=== PATIENT | male | born 1940 | race Caucasian/White ===

== ENCOUNTER 2017-07-21 10:57 | Inpatient (IN) ==
[2017-07-21] MEDS ORDERED: 0.9 % Sodium Chloride 1,000 ML IVC ONE (11:38)
[2017-07-21] MEDS ORDERED: Ondansetron 4 MG/2 ML VIAL IVP ONE (11:38)
[2017-07-21] MEDS ORDERED: Ibuprofen 600 MG TABLET PO ONE (11:39)
[2017-07-21] MEDS ORDERED: 0.9 % Sodium Chloride 500 ML IVC ONE (11:43)
--- NOTE | 2017-07-21 11:55 | Emergency Department Note ---
Disposition Clinical Impression: Influenza, Atrial fibrillation with RVR, Hyponatremia, Dehydration Hypotension Qualifiers: Hypotension type: unspecified hypotension type Qualified Code(s): I95.9 - Hypotension, unspecified Disposition: Still a Patient Condition: Fair Referrals: Brenda Bearden MD [Primary Care Provider] - Forms: ED Satisfaction Letter Time of Disposition: 14:02 General Adult HPI - General Chief complaint: ED Upper Respiratory Infection Stated complaint: flu like symptoms Time Seen by Provider: 07/21/17 11:16 Source: patient Limitations: no limitations Nursing Notes Reviewed: Yes Vital Signs Reviewed: Yes - History of Present Illness HPI Narrative: Mr Whitmore is a 76 yo male presents 3 day hx of worsening general malaise. Patient has been visiting his who lives [facility] and currently hospitalized for the flu. Patient has associated myalgia, cough, nausea and chills. Patient declines fever, shortness of breath, chest pain, vomiting. Onset (ago): day(s) (3) Radiation: non-radiation Pain Severity: mild Pain Scale: 0 Quality: aching Consistency: constant, Worsening Improves with: nothing Worsens with: nothing Associated symptoms: Reports: cough, diaphoresis, fever/chills, loss of appetite , malaise, nausea/vomiting, weakness. Denies: confusion, chest pain, headaches , rash, seizure, shortness of breath, syncope Treatments Prior to Arrival: none - Related Data Home Medications Medication Instructions Recorded Confirmed Aspirin Enteric Coated [Aspirin EC] 81 mg PO DAILY 07/21/17 07/21/17 Latanoprost [Xalatan] 1 drop OP HS 07/21/17 07/21/17 Lisinopril [Zestril] 40 mg PO DAILY 07/21/17 07/21/17 Metoprolol [Lopressor] 50 mg PO BID 07/21/17 07/21/17 Triamterene/HCTZ 37.5/25mg 1 each PO DAILY 07/21/17 07/21/17 [Dyazide] Allergies Allergy/AdvReac Type Severity Reaction Status Date / Time No Known Allergies Allergy Verified 07/21/17 11:11 All systems ED: reviewed and negative except as stated. Review of Systems: As Per HPI Constitutional: Reports: chills, weakness. Denies: fever Cardiovascular: Denies: chest pain, palpitations, dyspnea on exertion, orthopnea , paroxysmal nocturnal dyspnea Respiratory: Reports: cough. Denies: dyspnea, wheezes Gastrointestinal: Reports: nausea. Denies: abdominal pain, vomiting, diarrhea, constipation Past Medical History - Past Medical History Medical history: Reports: hypertension Psychiatric history: Reports: no psych history - Social History Smoking Status: Former smoker Smokeless Tobacco Status: No Alcohol use: Reports: none Drug use: Reports: none Physical Exam - General Limitations: no limitations General appearance: alert - Head Head exam: atraumatic, normocephalic - Eye Eye exam: Absent: conjunctival injection - ENT ENT exam: mucous membranes dry - Neck Neck exam: Present: lymphadenopathy (non-tender anterior cervical lymphadenopathy bilaterally) - Chest Chest inspection: Present: normal inspection, symmetric chest wall rise. Absent : tenderness - Respiratory Respiratory exam: Present: normal lung sounds bilaterally - Cardiovascular Cardiovascular exam: Present: normal rhythm, tachycardia, normal heart sounds. Absent: systolic murmur, diastolic murmur - Abdominal Exam Abdominal exam: Present: soft, Non-Tender, normal bowel sounds. Absent: tenderness, distention, guarding, rebound, rigidity - Extremities Exam Extremities exam: Present: normal inspection, full ROM, normal capillary refill. Absent: tenderness, pedal edema Course Course Narrative: patient is tachy and hypotensive, and clinically appears mild dehydrated. Will resuscitate with IVF. EKG ordered, and shows patient is in Afib. Will attempt to rehydrate prior to attempting pharmaceutical rate control. Trops, CBC, BMP pending. - Reevaluation(s) Reevaluation #1: Influenza A returned back negative. Will admit at this time for new onset Afib. Started cardizem 5. Time: 14:01 Vital Signs Temperature 98.2 F 07/21/17 11:11 Pulse Rate 106 07/21/17 11:11 Respiratory Rate 20 07/21/17 11:11 Blood Pressure 159/102 07/21/17 11:11 O2 Sat by Pulse Oximetry 99 07/21/17 11:11 Temperature 98.2 F 07/21/17 11:11 Pulse Rate 119 07/21/17 12:15 Respiratory Rate 16 07/21/17 12:15 Blood Pressure 121/81 07/21/17 12:15 O2 Sat by Pulse Oximetry 95 07/21/17 12:15 Oxygen Delivery Oxygen Delivery Room Air Medical Decision Making - [facility] Narrative Medical decision making narrative: new onset Afib in the setting of influenza A infection. - Medical Records Medical records reviewed: Yes I reviewed the patient's medical records. - Lab Data Lab results reviewed: Yes I reviewed the patient's lab results. Result diagrams: 07/21/17 11:55 07/21/17 11:55 Lab Results 07/21/17 07/21/17 07/21/17 Range/Units 11:55 11:55 11:55 WBC 3.3 L (4.3-11.1) K/mcL RBC 4.88 (4.19-5.50) M/mcL Hgb 16.4 (12.9-16.9) g/dL Hct 45.2 (37.5-50.1) % MCV 92.6 (83.0-100.0) fL MCH 33.6 H (28.0-33.3) pg MCHC 36.3 H (31.6-35.5) g/dL RDW 12.7 (11.5-14.5) % Plt Count 172 (140-400) K/mcL MPV 9.1 L (9.4-12.4) fL Seg Neutrophils % 54.0 % Band Neutrophils % 7.0 H (0-4) % Lymphocytes % 20.0 % Monocytes % 18.0 % Eosinophils % 1.0 % Neutrophils # 2.0 (1.6-8.9) K/mcL Lymphocytes # 0.7 (0.6-4.6) K/mcL Monocytes # 0.6 (0.0-1.3) K/mcL Eosinophils # 0.0 (0.0-0.6) K/mcL Platelet Estimate Normal (Normal) Sodium 125 L (136-145) mEq/L Potassium 3.6 (3.5-5.1) mEq/L Chloride 88 L (98-107) mEq/L Carbon Dioxide 25 (23-29) mEq/L BUN 20 (8-23) mg/dL Creatinine 1.17 (0.70-1.30) mg/dL Est GFR ( Amer) > 60 (> 60) Est GFR (Non-Af Amer) > 60 (> 60) BUN/Creatinine Ratio 17 (6-26) Glucose 104 (70-105) mg/dL Calculated Osmolality 263 L (280-300) Calcium 9.6 (8.6-10.3) mg/dL Total Bilirubin 0.9 (0.3-1.0) mg/dL AST 40 H (13-39) Units/L ALT 21 (7-52) Units/L Alkaline Phosphatase 50 (34-104) Units/L Troponin I < 0.03 (< 0.04) ng/mL Serum Total Protein 7.6 (6.4-8.9) g/dL Albumin 4.3 (3.5-5.7) g/dL Globulin 3.3 (2.4-3.5) g/dL Albumin/Globulin Ratio 1.3 (1.1-2.2) - Radiology Data Radiology results reviewed: Yes I reviewed the patient's radiology results. Chest X-Ray 07/21/17 11:39 IMPRESSION: No acute process. D/ / Alejandro Matamoros MD / Alejandro Matamoros MD Interpreting Provider: Alejandro Matamoros MD - EKG Data EKG #1 EKG attestation: Yes I reviewed and interpreted this EKG. Rate: tachycardia Rhythm: A.Fib [place]/QRS: normal Interpretation: other (new onset of afib) Attestation Statement - Attestation Attestation: Patient was seen with resident physician. I reviewed the history, physical, assessment and plan, and agree with the findings. I also personally evaluated this patient and had [id number] time with this patient. 76-year-old male presents to the emergency Department chief complaint of 3 days of increasing malaise. Son says he has not been eating and drinking as much as usual. Patient himself denies chest pain shortness of breath fevers chills or other such complaints. He says he just does not have much energy with been getting progressively worse. Of note he lives by himself as his is currently hospitalized. On examination vital signs tachycardic with some mild hypotension on a repeat blood pressure. ENT is unremarkable. Heart tachycardic irregularly irregular rhythm. Lungs were clear. Abdomen is soft and nontender. Extremities are unremarkable including no swelling. Neurologically alert and oriented. Psychiatric exam. She has a flat affect but otherwise unremarkable. Skin exam shows no bruises or abrasions. ED course EKG revealed new onset atrial fibrillation. We will initially temperature control rate with fluids. We will also check labs including troponin influenza and chest x-ray. Because of the new onset nature of atrial fibrillation we will likely admit the patient to the hospital service. He remained stable on the ED. Patient was stable on the emergency department. We did eventually give him a little something for rate control once we get his blood pressure back up with fluids, hospital service was notified agree to accept the patient for admission. Agree with resident physician assessment plan.
[2017-07-21 12:11] LABS: Hematocrit 45.2 % (37.5-50.1); Hemoglobin 16.4 g/dL (12.9-16.9); Mean Corpuscular HGB Conc 36.3 g/dL (31.6-35.5); Mean Corpuscular Hemoglobin 33.6 pg (28.0-33.3); Mean Corpuscular Volume 92.6 fL (83.0-100.0); Mean Platelet Volume 9.1 fL (9.4-12.4); Platelet Count 172 K/mcL (140-400); Red Blood Count 4.88 M/mcL (4.19-5.50); Red Cell Distribution Width 12.7 % (11.5-14.5)
[2017-07-21 12:27] LABS: Alanine Aminotransferase 21 Units/L (7-52); Albumin 4.3 g/dL (3.5-5.7); Albumin/Globulin Ratio 1.3 (1.1-2.2); Alkaline Phosphatase 50 Units/L (34-104); Aspartate Amino Transferase 40 Units/L (13-39); BUN/Creatinine Ratio 17 (6-26); Bilirubin,Total 0.9 mg/dL (0.3-1.0); Blood Urea Nitrogen 20 mg/dL (8-23); Calcium 9.6 mg/dL (8.6-10.3); Carbon Dioxide 25 mEq/L (23-29); Chloride 88 mEq/L (98-107); Globulin 3.3 g/dL (2.4-3.5); Glucose 104 mg/dL (70-105); Osmolality,Calculated 263 (280-300); Potassium 3.6 mEq/L (3.5-5.1); Sodium 125 mEq/L (136-145); Total Protein 7.6 g/dL (6.4-8.9); eGFR For Non-African Americans > 60 (> 60)
[2017-07-21 12:38] LABS: Lymphocytes # 0.7 K/mcL (0.6-4.6); Monocytes # 0.6 K/mcL (0.0-1.3); Platelet Estimate Normal (Normal)
--- NOTE | 2017-07-21 13:38 | Internal Med History&Physical ---
Date of Encounter: 07/21/17 Time of Encounter: 13:36 Assessment and Plan (1) Influenza A Current visit: Yes Status: Acute We will start patient on Tamiflu. Will need 5 days of it. Continue supportive care. (2) Atrial fibrillation with RVR Current visit: Yes Status: Acute Give Cardizem 5 mg IV now. Check TSH. Check magnesium. Check an echocardiogram. This is new onset and may be exacerbated by the flu. Hold off on anticoagulation for now. (3) Hypertension Current visit: Yes Status: Acute Hold antihypertensives for now. Blood pressure is okay with systolic is in 120s currently. On initial presentation was actually elevated at 159/102. Qualifiers: Hypertension type: essential hypertension Qualified Code(s): I10 - Essential (primary) hypertension (4) Hyponatremia Current visit: Yes Status: Acute We will start gentle hydration. Check labs in the morning. He is already received 2 L normal saline boluses. (5) DVT prophylaxis Current visit: Yes Status: Acute Heparin subcutaneous Internal Medicine - H&P: HPI Chief complaint: shortness of breath Admitted From: Emergency Dept Plans for Post Hospital Care: Home History of present illness: Mr. Whitmore is a 76 year old male with history of HTN presents with myalgias. He has been having these symptoms for 3 days. Visits his in a [facility] who also has the flu. He has an associated cough, nausea and chills. Denies headaches, fever, chest pain, abdominal pain, urinary symptoms, diarrhea, constipation, neurological symptoms. In the emergency department he was found to be in atrial fibrillation with rapid ventricular response. With a rate in the 120s to 130s. He was otherwise hemodynamically stable. He is given 2 L of normal saline. He tested positive for the flu. Chest x-ray was unremarkable. Laboratory workup shows mild leukopenia with a WBC count of 3.3. There is no previous labs to compare that to. Sodium was 125. Normal kidney function. Past Med Surg Social Fam HX - Past Medical History Medical history: hypertension Psychiatric history: no psych history - Social History Smoking Status: Former smoker Smokeless Tobacco Status: No Alcohol use: none Drug use: none Internal Medicine - H&P: Meds Aspirin Enteric Coated [Aspirin EC] 81 mg PO DAILY 07/21/17 [History] Latanoprost [Xalatan] 1 drop OP HS 07/21/17 [History] Lisinopril [Zestril] 40 mg PO DAILY 07/21/17 [History] Metoprolol [Lopressor] 50 mg PO BID 07/21/17 [History] Triamterene/HCTZ 37.5/25mg [Dyazide] 1 each PO DAILY 07/21/17 [History] 3 Allergy/AdvReac Type Severity Reaction Status Date / Time No Known Allergies Allergy Verified 07/21/17 11:11 All Systems PM: A 10-system review of systems was performed and is negative for pertinent findings except as documented above in the HPI. Review of systems: All systems reviewed are negative except for as mentioned above - Constitutional Vitals: Temp Pulse Resp BP Pulse Ox 98.2 F 119 16 121/81 95 07/21/17 11:11 07/21/17 12:15 07/21/17 12:15 07/21/17 12:15 07/21/17 12:15 Exam: GEN: NAD HEENT: AT, NC, No cyanosis, oral mucosa is moist, No JVD Lymphatics: No lymphadenoapthy Eyes: Extrocular muscles intact, anicteric CVS:RRR. S1, S2, No m/r/g RESP: CTAB ABD: Soft, NT, ND, +BS EXT: No edema, No rashes, 2+ DP NEURO: Nonfocal, CN II-XII intact, No focal motor or sensory deficits Psych: Cooperative, Not anxious or depressed Internal Med - H&P Results - Labs CBC & Chem 7: 07/21/17 11:55 07/21/17 11:55 Labs: Short CBC 07/21/17 Range/Units 11:55 WBC 3.3 L (4.3-11.1) K/mcL Hgb 16.4 (12.9-16.9) g/dL Hct 45.2 (37.5-50.1) % Plt Count 172 (140-400) K/mcL Neutrophils # 2.0 (1.6-8.9) K/mcL BMP 07/21/17 11:55 Sodium 125 L Potassium 3.6 Chloride 88 L Carbon Dioxide 25 BUN 20 Creatinine 1.17 Glucose 104 Calcium 9.6 Cardiac Enzymes 07/21/17 Range/Units 11:55 Troponin I < 0.03 (< 0.04) ng/mL Liver Function 07/21/17 Range/Units 11:55 Total Bilirubin 0.9 (0.3-1.0) mg/dL AST 40 H (13-39) Units/L ALT 21 (7-52) Units/L Alkaline Phosphatase 50 (34-104) Units/L Albumin 4.3 (3.5-5.7) g/dL - Impressions ITS Impressions Chest X-Ray 07/21/17 11:39 IMPRESSION: No acute process. D/ / Alejandro Matamoros MD / Alejandro Matamoros MD Interpreting Provider: Alejandro Matamoros MD
[2017-07-21] MEDS ORDERED: Naloxone 0.4 MG/ML INJ IVP PRN (13:46)
[2017-07-21] MEDS ORDERED: Acetaminophen 325 MG TABLET PO PRN (13:46)
[2017-07-21 14:21] LABS: INR 1.2; Prothrombin Time 12.8 Seconds (9.4-12.1)
[2017-07-21 14:37] LABS: Magnesium 1.5 mg/dL (1.6-2.6)
[2017-07-21 14:50] LABS: Thyroid Stimulating Hormone 1.167 mcIU/mL (0.340-5.600)
[2017-07-21] MEDS: 0.9 % Sodium Chloride 1,000 ML IVC SCH (14:52)
[2017-07-21] MEDS: Oseltamivir Phosphate 30 MG CAPSULE PO SCH ×2 (14:54→20:28)
[2017-07-21] MEDS: *HR* Heparin 5,000 UNIT/ML VIAL SQ SCH ×2 (18:03→20:29)
[2017-07-21] MEDS: Latanoprost 2.5 ML BOTTLE BOTH EYES SCH (20:52)
[2017-07-21] MEDS ORDERED: Magnesium Oxide 400 MG TABLET PO ONE (22:51)
[2017-07-22] MEDS: 0.9 % Sodium Chloride 1,000 ML IVC SCH ×2 (05:15→22:03)
[2017-07-22] MEDS: *HR* Heparin 5,000 UNIT/ML VIAL SQ SCH ×3 (05:19→22:03)
[2017-07-22 07:46] LABS: BUN/Creatinine Ratio 17 (6-26); Blood Urea Nitrogen 16 mg/dL (8-23); Calcium 8.4 mg/dL (8.6-10.3); Carbon Dioxide 20 mEq/L (23-29); Chloride 91 mEq/L (98-107); Glucose 87 mg/dL (70-105); Magnesium 1.3 mg/dL (1.6-2.6); Osmolality,Calculated 257 (280-300); Potassium 3.7 mEq/L (3.5-5.1); Sodium 123 mEq/L (136-145); eGFR For Non-African Americans > 60 (> 60)
[2017-07-22 07:58] LABS: Basophils % 0.2 %; Eosinophils % 0.2 %; Hematocrit 39.7 % (37.5-50.1); Immature Granulocytes % 0.5 % (0-4); Lymphocytes # 0.3 K/mcL (0.6-4.6); Lymphocytes % 5.2 %; Mean Corpuscular Hemoglobin 32.9 pg (28.0-33.3); Mean Corpuscular Volume 91.3 fL (83.0-100.0); Mean Platelet Volume 9.4 fL (9.4-12.4); Monocytes # 0.3 K/mcL (0.0-1.3); Monocytes % 5.2 %; Neutrophils # 5.6 K/mcL (1.6-8.9); Nucleated Red Blood Cells 0.6 /100 WBC (0); Platelet Count 156 K/mcL (140-400); Red Blood Count 4.35 M/mcL (4.19-5.50); Red Cell Distribution Width 12.5 % (11.5-14.5); Segmented Neutrophils % 88.7 %
[2017-07-22 08:03] LABS: Hemoglobin 14.3 g/dL (12.9-16.9)
[2017-07-22] MEDS: Oseltamivir Phosphate 30 MG CAPSULE PO SCH ×2 (10:34→22:02)
[2017-07-22] MEDS: Aspirin Enteric Coated 81 MG Tablet PO SCH (10:34)
[2017-07-22] MEDS: Lisinopril 20 MG TABLET PO SCH (10:34)
--- NOTE | 2017-07-22 12:31 | Internal Med Progress Note ---
Date of Encounter: 07/22/17 Time of Encounter: 11:30 - Assessment and plan (1) Atrial fibrillation with RVR Current Visit: Yes Status: Acute Assessment and plan: Newly diagnosed Tele review shows more sinus tach with PACS Repeat EKG TSH WNL Consult cardiology Now in sinus rhythm and HR controlled, patient is on metoprolol at home, continue same CHADS score of 2 for HTN and age Will defer anticoagulation to cardiology eval ECHO has been done and is pending report (2) Hypertension Current Visit: Yes Status: Acute Assessment and plan: controlled on current meds-HCTZ/Metoprolol/Lisinopril, continue same Qualifiers: Hypertension type: essential hypertension Qualified Code(s): I10 - Essential (primary) hypertension (3) Hyponatremia Current Visit: Yes Status: Acute Assessment and plan: Persistent, possibly due to dehydration COntinue home meds (4) Influenza A Current Visit: Yes Status: Acute Assessment and plan: continue tamiflu (5) DVT prophylaxis Current Visit: Yes Status: Acute Assessment and plan: Heparin SQ (6) Hypomagnesemia Current Visit: Yes Status: Acute Assessment and plan: replaced, continue to monitor - Subjective Interval history: Seen and evaluated at bedside with son NO new complains Cough and breathing improved - Constitutional Vitals: Temp Pulse Resp BP Pulse Ox 98.6 F 93 14 139/85 94 07/22/17 11:16 07/22/17 11:16 07/22/17 11:16 07/22/17 11:16 07/22/17 11:16 General appearance: Present: A&O X 3, pleasant, no acute distress - Head Head exam: Present: atraumatic, normocephalic - Eye Eye exam: Present: PERRL, conjuntiva pink, sclera anicteric Pupils: Present: PERRL - Neck Neck exam general surgery: Present: supple, trachea midline. Absent: lymphadenopathy - Respiratory Respiratory exam: Present: CTAB. Absent: accessory muscle use, rales, rhonchi, wheezes - Cardiovascular Cardiovascular exam: Present: RRR, +S1, +S2. Absent: diastolic murmur, gallop, rubs, systolic murmur - GI/Abdominal GI/Abdominal exam: Present: normal bowel sounds, soft, no peritoneal signs. Absent: distended, tenderness - Extremities Exam Extremities exam: Present: warm, radial pulses palpable and symmetrical. Absent : calf tenderness, cyanotic, pedal edema - Neurological Exam Neurological exam: Present: alert, CN II-XII intact, oriented X3, no focal deficits. Absent: pronater drift, facial droop, speech deficit - Skin Skin exam: Present: dry, intact Internal Medicine: Result - Labs CBC & Chem 7: 07/22/17 06:48 07/22/17 06:48 Labs: Short CBC 07/22/17 Range/Units 06:48 WBC 6.3 D (4.3-11.1) K/mcL Hgb 14.3 D (12.9-16.9) g/dL Hct 39.7 (37.5-50.1) % Plt Count 156 (140-400) K/mcL Neutrophils # 5.6 (1.6-8.9) K/mcL BMP 07/22/17 06:48 Sodium 123 L Potassium 3.7 Chloride 91 L Carbon Dioxide 20 L BUN 16 Creatinine 0.96 Glucose 87 Calcium 8.4 L - ABG Interpretation ABG results: PT/INR, D-dimer PT 12.8 Seconds (9.4-12.1) H 07/21/17 14:04 Consult Discharge Plan - Plan Referrals: Brenda Bearden MD [Primary Care Provider] -
[2017-07-22] MEDS: Latanoprost 2.5 ML BOTTLE BOTH EYES SCH (22:03)
[2017-07-23] MEDS: *HR* Heparin 5,000 UNIT/ML VIAL SQ SCH ×3 (06:02→23:47)
[2017-07-23 08:44] LABS: Calcium 8.6 mg/dL (8.6-10.3); Carbon Dioxide 27 mEq/L (23-29); Chloride 90 mEq/L (98-107); Magnesium 1.7 mg/dL (1.6-2.6); Potassium 3.7 mEq/L (3.5-5.1); Sodium 123 mEq/L (136-145)
[2017-07-23 08:50] LABS: BUN/Creatinine Ratio 13 (6-26); Blood Urea Nitrogen 12 mg/dL (8-23); Glucose 100 mg/dL (70-105); Osmolality,Calculated 256 (280-300); eGFR For Non-African Americans > 60 (> 60)
[2017-07-23] MEDS: 0.9 % Sodium Chloride 1,000 ML IVC SCH (11:35)
[2017-07-23] MEDS: Aspirin Enteric Coated 81 MG Tablet PO SCH (11:36)
[2017-07-23] MEDS: Lisinopril 20 MG TABLET PO SCH (11:36)
[2017-07-23] MEDS: Magnesium Oxide 400 MG TABLET PO SCH ×2 (11:43→20:14)
--- NOTE | 2017-07-23 11:44 | Internal Med Progress Note ---
Date of Encounter: 07/23/17 Time of Encounter: 15:21 - Assessment and plan (1) Atrial fibrillation with RVR Current Visit: Yes Status: Acute Assessment and plan: Newly diagnosed Resolved back to sinus Tele review shows more sinus tach with PACS TSH WNL Consulted cardiology, review noted Now in sinus rhythm and HR controlled, patient is on metoprolol at home, continue same CHADS score of 2 for HTN and age Started on Warfarin by cardiology, monitor INR ECHO has been done -showed preserved EF, no WMA (2) Hypertension Current Visit: Yes Status: Chronic Assessment and plan: controlled on current meds-HCTZ/Metoprolol/Lisinopril, continue same Qualifiers: Hypertension type: essential hypertension Qualified Code(s): I10 - Essential (primary) hypertension (3) Hyponatremia Current Visit: Yes Status: Acute Assessment and plan: Persistent, possibly due to dehydration Baseline unknown Na this morning 123 Continue current management (4) Influenza A Current Visit: Yes Status: Acute Assessment and plan: continue tamiflu (5) DVT prophylaxis Current Visit: Yes Status: Acute Assessment and plan: Heparin SQ (6) Hypomagnesemia Current Visit: Yes Status: Acute Assessment and plan: replaced, Mag 1.7 this a.m, continue to monitor - Subjective Interval history: Seen and evaluated at bedside with son NO new complains Cough and breathing improved Awaiting cardio eval - Constitutional Vitals: Temp Pulse Resp BP Pulse Ox 97.8 F 96 15 123/86 93 07/23/17 11:31 07/23/17 11:31 07/23/17 11:31 07/23/17 11:31 07/23/17 11:31 General appearance: Present: A&O X 3, pleasant, no acute distress - Head Head exam: Present: atraumatic, normocephalic - Eye Eye exam: Present: PERRL, conjuntiva pink, sclera anicteric Pupils: Present: PERRL - Neck Neck exam general surgery: Present: supple, trachea midline. Absent: lymphadenopathy - Respiratory Respiratory exam: Present: CTAB. Absent: accessory muscle use, rales, rhonchi, wheezes - Cardiovascular Cardiovascular exam: Present: RRR, +S1, +S2. Absent: diastolic murmur, gallop, rubs, systolic murmur - GI/Abdominal GI/Abdominal exam: Present: normal bowel sounds, soft, no peritoneal signs. Absent: distended, tenderness - Extremities Exam Extremities exam: Present: warm, radial pulses palpable and symmetrical. Absent : calf tenderness, cyanotic, pedal edema - Neurological Exam Neurological exam: Present: alert, CN II-XII intact, oriented X3, no focal deficits. Absent: pronater drift, facial droop, speech deficit - Skin Skin exam: Present: dry, intact Internal Medicine: Result - Labs CBC & Chem 7: 07/22/17 06:48 07/23/17 08:20 Labs: BMP 07/23/17 08:20 Sodium 123 L Potassium 3.7 Chloride 90 L Carbon Dioxide 27 BUN 12 Creatinine 0.90 Glucose 100 Calcium 8.6 - ABG Interpretation ABG results: PT/INR, D-dimer PT 12.8 Seconds (9.4-12.1) H 07/21/17 14:04 - Impressions Impressions Echocardiogram 07/22/17 13:45 Impressions: LVEF 65%. Mild left ventricular diastolic dysfunction. Dilated RV with normal function. Mild aortic regurgitation. No pulmonary hypertension. Left Ventricular Wall Motion: Rest Echo Findings All wall segments showed normal motion. Findings: Study Quality * Technically adequate exam. ECG Findings * Sinus tachycardia. Left Ventricle * LVEF 65%. * Mild left ventricular diastolic dysfunction. * Normal LV chamber size, wall thickness and function. Right Ventricle * Dilated RV with normal function. Left Atrium * LA size not well evaluated. Right Atrium * Right atrium is not well visualized. Aortic Valve * Trileaflet aortic valve. * No aortic stenosis. * Mild aortic regurgitation. Mitral Valve * No mitral stenosis. * Trace mitral regurgitation. * Normal mitral valve structure. Tricuspid Valve * Tricuspid valve not well visualized. * Trace tricuspid regurgitation. Pulmonic Valve * Pulmonic valve is not well visualized. * No pulmonic stenosis. * No pulmonic regurgitation. Pulmonary Artery * Pulmonary artery not well visualized. Aorta * Normally sized aortic root. Pericardium * There is no pericardial effusion present. Interatrial Septum * Interatrial septum not well evaluated. IVC * The IVC is not well evaluated. Consult Discharge Plan - Plan Referrals: Brenda Bearden MD [Primary Care Provider] -
--- NOTE | 2017-07-23 12:05 | Cardiology Consult Note ---
<Brandi Kinsey Earlene - Last Filed: 07/23/17 12:06> Date of Encounter: 07/23/17 Time of Encounter: 11:30 Assessment and Plan (1) Atrial fibrillation with RVR Current Visit: Yes Status: Acute Atrial fibrillation with RVR in the setting of influenza A. Chronicity unclear, patient asymptomatic. Now SR with frequent PACs. Continue betablockade. TSH normal. Electrolytes stable, mag low normal--will give po replacement. TTE 07/22/17: LVEF 65%, dilated RV with normal function, normal wall motion, mild AR. CHA2Ds Vasc= 3 (age, HTN). Recommend full AC, discussed NOACs vs. coumadin, if affordable patient and family would prefer to proceed with NOAC. Will ellis check Xarelto 20 mg daily. Will discuss and review with Dr. Reid. (2) Influenza A Current Visit: Yes Status: Acute On Tamiflu. Mgmt per primary service. (3) Hypertension Current Visit: Yes Status: Acute Controlled, continue current CV medications. Qualifiers: Hypertension type: essential hypertension Qualified Code(s): I10 - Essential (primary) hypertension Discussion w patient/family: The assessment and plan as outlined above was discussed with the patient and/or family members who expressed understanding and agreement. All questions were answered. Thank you for involving us in the care of your patient. Please call with any questions. The patient will be discussed and reviewed with Dr. Reid; changes to be made accordingly. History of Present Illness Consult date: 07/23/17 Requesting physician: Mayank Loyola Consult reason: Afib Chief complaint: Weakness History of present illness: Mr. Whitmore is a 76 year old male with PMHx significant for HTN who presented to the ED with 1 week history of significant weakness and malaise, he was found to be positive for influenza A. He reports he had been visiting with his at a correction, she was also positive for the flu last week. Associated symptoms include frequent cough. ECG upon arrival demonstrated atrial fibrillation with RVR--Cardiology consulted. Past Med Surg Social Fam HX - Past Medical History Attestation: Yes The following information was validated with the patient. Medical history: hypertension Psychiatric history: no psych history - Social History Smoking Status: Former smoker (remote) Smokeless Tobacco Status: No Alcohol use: none Drug use: none Medications and Allergies Aspirin Enteric Coated [Aspirin EC] 81 mg PO DAILY 07/21/17 [History] Latanoprost [Xalatan] 1 drop OP HS 07/21/17 [History] Lisinopril [Zestril] 40 mg PO DAILY 07/21/17 [History] Metoprolol [Lopressor] 50 mg PO BID 07/21/17 [History] Triamterene/HCTZ 37.5/25mg [Dyazide] 1 each PO DAILY 07/21/17 [History] 3 Allergy/AdvReac Type Severity Reaction Status Date / Time No Known Allergies Allergy Verified 07/21/17 11:11 All Systems Review: The remainder of the systems were reviewed and are negative - Cardiovascular Cardiovascular: as per HPI Physical Examination Vital Signs, Last 4 Hours Temp Pulse Resp BP Pulse Ox 07/23/17 11:31 97.8 F 96 15 123/86 93 General: Conversant, No Apparent Distress HEENT: Atraumatic, Normocephaly Cardiac: Reg Rate and Rhythm, Normal S1 and S2 Lungs: Normal Breath Sounds Neuro: Alert and responsive Abdomen: Soft Skin: No rashes noted on visualized skin Musculoskeletal: No Chest Wall Tenderness Extremities: No Edema, Normal Pulses Results 07/22/17 06:48 07/23/17 08:20 Lab Results 07/23/17 08:20 Sodium 123 L Potassium 3.7 Chloride 90 L Carbon Dioxide 27 BUN 12 Creatinine 0.90 Glucose 100 Calcium 8.6 Magnesium 1.7 Active Medications Acetaminophen (Tylenol) 650 mg PO Q6HR PRN PRN Reason: Mild Pain/Fever Stop: 01/20/18 13:47 Aspirin (Aspirin Ec) 81 mg PO DAILY [facility] Stop: 01/21/18 09:01 Last Admin: 07/23/17 11:36 Dose: 81 mg Diphenhydramine HCl (Benadryl) 25 mg PO HS PRN PRN Reason: Insomnia Stop: 01/21/18 21:20 Last Admin: 07/22/17 22:03 Dose: 25 mg Guaifenesin (Robitussin/Dm) 10 ml PO Q6HR PRN PRN Reason: Cough Stop: 01/22/18 11:33 Last Admin: 07/23/17 11:43 Dose: 10 ml Heparin Sodium (Porcine) (Heparin) 5,000 unit SQ Q8HCO IVON Stop: 01/20/18 14:01 Last Admin: 07/23/17 06:02 Dose: 5,000 unit Latanoprost (Xalatan) 1 drop BOTH EYES HS IVON PRN Reason: Protocol Stop: 01/20/18 21:01 Last Admin: 07/22/17 22:03 Dose: 1 drop Lisinopril (Zestril) 40 mg PO DAILY IVON Stop: 01/21/18 09:01 Last Admin: 07/23/17 11:36 Dose: 40 mg Magnesium Oxide (Mag-Ox) 400 mg PO BID IVON PRN Reason: Protocol Stop: 07/23/17 21:01 Last Admin: 07/23/17 11:43 Dose: 400 mg Metoprolol Tartrate (Lopressor) 50 mg PO BID IVON Stop: 01/20/18 21:01 Last Admin: 07/23/17 11:36 Dose: 50 mg Naloxone HCl (Narcan) 0.4 mg IVP Q2MIN PRN PRN Reason: SEE COMMENTS Stop: 01/20/18 13:47 Oseltamivir Phosphate (Tamiflu) 75 mg PO BID IVON Stop: 07/25/17 23:59 Last Admin: 07/23/17 11:43 Dose: 75 mg Triamterene/HCTZ (Dyazide) 1 each PO DAILY IVON Stop: 01/21/18 09:01 Last Admin: 07/23/17 11:36 Dose: 1 each - Imaging and Cardiology Echo: report reviewed Other Results: 12 hour tele: avg HR=84 SR with frequent PACs - EKG Interpretation EKG results cardiology: personally reviewed Consult Discharge Plan - Plan Referrals: Brenda Bearden MD [Primary Care Provider] - <Alejandro Reid - Last Filed: 07/23/17 12:40> Date of Encounter: 07/23/17 - Attending Attestation 76 YOM with h/o HTN influenza A positive found to be in Afib. ChadsVasc 3 recommended NOAC for stroke risk reduction. Patient understands r/b/a and sgrees to proceed. Consider outpatient stress test. ECHO preserved EF 60% Afib, new onset now in NSR ChadsVasc 3 Xarelto and stress test as an OP Now in NSR Assessment and Plan Discussion w patient/family: The assessment and plan as outlined above was discussed with the patient and/or family members who expressed understanding and agreement. All questions were answered. Thank you for involving us in the care of your patient. Please call with any questions. History of Present Illness History of present illness: Mr. Whitmore is a 76 year old male All Systems Review: The remainder of the systems were reviewed and are negative Physical Examination Vital Signs, Last 4 Hours Temp Pulse Resp BP Pulse Ox 07/23/17 11:31 97.8 F 96 15 123/86 93 Results 07/22/17 06:48 07/23/17 08:20 Lab Results 07/23/17 08:20 Sodium 123 L Potassium 3.7 Chloride 90 L Carbon Dioxide 27 BUN 12 Creatinine 0.90 Glucose 100 Calcium 8.6 Magnesium 1.7
--- NOTE | 2017-07-23 13:13 | Event Note ---
Date of Encounter: 07/23/17 Time of Encounter: 13:10 - Cardiology Event Note Parker check for Xarelto 20 mg daily: $417/month. Will start coumadin with pharmacy to dose as inpatient, goal INR 2-3 Will complete referral to Coumadin clinic. Discussed with patient, agrees with coumadin.
[2017-07-23] MEDS ORDERED: Warfarin perPT PO PRN (18:00)
[2017-07-23] MEDS ORDERED: *HR* Warfarin 5 MG TABLET PO ONE (18:00)
[2017-07-23] MEDS: Latanoprost 2.5 ML BOTTLE BOTH EYES SCH (20:15)
[2017-07-24 05:38] LABS: INR 1.2; Prothrombin Time 13.1 Seconds (9.4-12.1)
[2017-07-24] MEDS: *HR* Heparin 5,000 UNIT/ML VIAL SQ SCH ×2 (05:57→16:53)
[2017-07-24 06:04] LABS: BUN/Creatinine Ratio 13 (6-26); Blood Urea Nitrogen 11 mg/dL (8-23); Calcium 8.8 mg/dL (8.6-10.3); Carbon Dioxide 26 mEq/L (23-29); Chloride 91 mEq/L (98-107); Glucose 98 mg/dL (70-105); Osmolality,Calculated 257 (280-300); Potassium 3.7 mEq/L (3.5-5.1); Sodium 124 mEq/L (136-145); eGFR For Non-African Americans > 60 (> 60)
[2017-07-24] MEDS: Aspirin Enteric Coated 81 MG Tablet PO SCH (09:38)
[2017-07-24] MEDS: Lisinopril 20 MG TABLET PO SCH (09:38)
--- NOTE | 2017-07-24 15:58 | Internal Med Progress Note ---
Date of Encounter: 07/24/17 Time of Encounter: 15:56 - Assessment and plan (1) Influenza A Current Visit: Yes Status: Acute Assessment and plan: continue tamiflu Showed improvement. (2) Atrial fibrillation with RVR Current Visit: Yes Status: Acute Assessment and plan: Newly diagnosed Resolved back to sinus Tele review shows more sinus tach with PACS TSH WNL Consulted cardiology, review noted Now in sinus rhythm and HR controlled, patient is on metoprolol at home, continue same CHADS score of 2 for HTN and age Started on Warfarin by cardiology, monitor INR ECHO has been done -showed preserved EF, no WMA (3) Hyponatremia Current Visit: Yes Status: Acute Assessment and plan: Possibly chronic, possibly due to dehydration, diuretics On Dyazide Baseline unknown - Hold Dyazide (already received a dose today) - Obtain urine osm and urine sodium levels - Consult Nephrology (4) Hypomagnesemia Current Visit: Yes Status: Acute Assessment and plan: replaced, Mag 1.7 this a.m, continue to monitor (5) Hypertension Current Visit: Yes Status: Chronic Assessment and plan: controlled on current meds-HCTZ/Metoprolol/Lisinopril, continue same Qualifiers: Hypertension type: essential hypertension Qualified Code(s): I10 - Essential (primary) hypertension (6) DVT prophylaxis Current Visit: Yes Status: Acute Assessment and plan: Heparin SQ - Subjective Interval history: No complaints, no acute events. - Constitutional Vitals: Temp Pulse Resp BP Pulse Ox 98.3 F 82 16 118/87 96 07/24/17 11:59 07/24/17 11:59 07/24/17 11:59 07/24/17 11:59 07/24/17 11:59 General appearance: Present: A&O X 3, pleasant, no acute distress Exam: - Head Head exam: Present: atraumatic, normocephalic - Eye Eye exam: Present: PERRL, conjuntiva pink, sclera anicteric Pupils: Present: PERRL - Neck Neck exam general surgery: Present: supple, trachea midline. Absent: lymphadenopathy - Respiratory Respiratory exam: Present: CTAB. Absent: accessory muscle use, rales, rhonchi, wheezes - Cardiovascular Cardiovascular exam: Present: RRR, +S1, +S2. Absent: diastolic murmur, gallop, rubs, systolic murmur - GI/Abdominal GI/Abdominal exam: Present: normal bowel sounds, soft, no peritoneal signs. Absent: distended, tenderness - Extremities Exam Extremities exam: Present: warm, radial pulses palpable and symmetrical. Absent : calf tenderness, cyanotic, pedal edema - Neurological Exam Neurological exam: Present: alert, CN II-XII intact, oriented X3, no focal deficits. Absent: pronater drift, facial droop, speech deficit - Skin Skin exam: Present: dry, intact Internal Medicine: Result - Labs CBC & Chem 7: 07/22/17 06:48 07/24/17 04:57 Labs: BMP 07/24/17 04:57 Sodium 124 L Potassium 3.7 Chloride 91 L Carbon Dioxide 26 BUN 11 Creatinine 0.82 Glucose 98 Calcium 8.8 - ABG Interpretation ABG results: PT/INR, D-dimer PT 13.1 Seconds (9.4-12.1) H 07/24/17 04:57 Consult Discharge Plan - Plan Referrals: Brenda Bearden MD [Primary Care Provider] -
[2017-07-24] MEDS: *HR* Warfarin 3 MG TABLET PO SCH (16:53)
--- NOTE | 2017-07-24 18:18 | Electrocardiograph Report ---
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
--- NOTE | 2017-07-24 18:33 | Electrocardiograph Report ---
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
[2017-07-24] MEDS: Latanoprost 2.5 ML BOTTLE BOTH EYES SCH (20:24)
[2017-07-25] MEDS: *HR* Heparin 5,000 UNIT/ML VIAL SQ SCH ×4 (00:21→21:13)
[2017-07-25 06:53] LABS: INR 1.3; Prothrombin Time 13.6 Seconds (9.4-12.1)
[2017-07-25] MEDS ORDERED: Ondansetron 4 MG/2 ML VIAL IVP PRN (08:11)
[2017-07-25 08:37] LABS: Basophils % 0.2 %; Eosinophils % 0.5 %; Hemoglobin 14.9 g/dL (12.9-16.9); Red Cell Distribution Width 12.4 % (11.5-14.5)
[2017-07-25] MEDS: Lisinopril 20 MG TABLET PO SCH (08:57)
[2017-07-25] MEDS: Aspirin Enteric Coated 81 MG Tablet PO SCH (08:57)
[2017-07-25 09:48] LABS: BUN/Creatinine Ratio 16 (6-26); Blood Urea Nitrogen 12 mg/dL (8-23); Calcium 9.4 mg/dL (8.6-10.3); Carbon Dioxide 26 mEq/L (23-29); Chloride 83 mEq/L (98-107); Glucose 107 mg/dL (70-105); Osmolality,Calculated 244 (280-300); Sodium 117 mEq/L (136-145); eGFR For Non-African Americans > 60 (> 60)
[2017-07-25 10:24] LABS: Hematocrit 41.5 % (37.5-50.1); Immature Granulocytes % 0.3 % (0-4); Immature Platelets 11.9 % (1.1-6.1); Lymphocytes # 1.2 K/mcL (0.6-4.6); Lymphocytes % 19.7 %; Mean Corpuscular Hemoglobin 32.5 pg (28.0-33.3); Mean Corpuscular Volume 90.6 fL (83.0-100.0); Mean Platelet Volume 10.8 fL (9.4-12.4); Monocytes # 0.8 K/mcL (0.0-1.3); Monocytes % 13.8 %; Neutrophils # 3.9 K/mcL (1.6-8.9); Platelet Count 159 K/mcL (140-400); Red Blood Count 4.58 M/mcL (4.19-5.50); Segmented Neutrophils % 65.5 %
[2017-07-25 10:25] LABS: Mean Corpuscular HGB Conc 35.9 g/dL (31.6-35.5)
[2017-07-25] MEDS: 0.9 % Sodium Chloride 1,000 ML IVC SCH ×2 (12:19→23:22)
--- NOTE | 2017-07-25 12:39 | Internal Med Progress Note ---
Date of Encounter: 07/25/17 Time of Encounter: 12:36 - Assessment and plan (1) Influenza A Current Visit: Yes Status: Acute Assessment and plan: continue tamiflu Showed improvement. (2) Atrial fibrillation with RVR Current Visit: Yes Status: Acute Assessment and plan: Newly diagnosed Resolved back to sinus Tele review shows more sinus tach with PACS TSH WNL Consulted cardiology, review noted Now in sinus rhythm and HR controlled, patient is on metoprolol at home, continue same CHADS score of 2 for HTN and age Started on Warfarin by cardiology, monitor INR ECHO has been done -showed preserved EF, no WMA (3) Hyponatremia Current Visit: Yes Status: Acute Assessment and plan: Possibly chronic, possibly due to dehydration, diuretics On Dyazide Baseline unknown Restart IV fluids. Normal urine sodium, normal urine osmolar. - Hold Dyazide (already received a dose today) - Nephrology consulted, recommendations appreciated (4) Hypomagnesemia Current Visit: Yes Status: Acute Assessment and plan: replaced, Mag 1.7 this a.m, continue to monitor (5) Hypertension Current Visit: Yes Status: Chronic Assessment and plan: Hold Dyazide because of hyponatremia. Qualifiers: Hypertension type: essential hypertension Qualified Code(s): I10 - Essential (primary) hypertension (6) DVT prophylaxis Current Visit: Yes Status: Acute Assessment and plan: Heparin SQ - Subjective Interval history: No complaints, no acute events. - Constitutional Vitals: Temp Pulse Resp BP Pulse Ox 97.8 F 106 18 130/86 97 07/25/17 08:00 07/25/17 08:00 07/25/17 08:00 07/25/17 08:00 07/25/17 08:00 General appearance: Present: A&O X 3, pleasant, no acute distress - Head Head exam: Present: atraumatic, normocephalic - Eye Eye exam: Present: PERRL, conjuntiva pink, sclera anicteric Pupils: Present: PERRL - Neck Neck exam general surgery: Present: supple, trachea midline. Absent: lymphadenopathy - Respiratory Respiratory exam: Present: CTAB. Absent: accessory muscle use, rales, rhonchi, wheezes - Cardiovascular Cardiovascular exam: Present: RRR, +S1, +S2. Absent: diastolic murmur, gallop, rubs, systolic murmur - GI/Abdominal GI/Abdominal exam: Present: normal bowel sounds, soft, no peritoneal signs. Absent: distended, tenderness - Extremities Exam Extremities exam: Present: warm, radial pulses palpable and symmetrical. Absent : calf tenderness, cyanotic, pedal edema - Neurological Exam Neurological exam: Present: CN II-XII intact, oriented X3, no focal deficits. Absent: pronater drift, facial droop, speech deficit - Skin Skin exam: Present: dry, intact Internal Medicine: Result - Labs CBC & Chem 7: 07/25/17 08:17 07/25/17 08:17 Labs: Short CBC 07/25/17 Range/Units 08:17 WBC 6.0 (4.3-11.1) K/mcL Hgb 14.9 (12.9-16.9) g/dL Hct 41.5 (37.5-50.1) % Plt Count 159 (140-400) K/mcL Neutrophils # 3.9 (1.6-8.9) K/mcL BMP 07/25/17 08:17 Sodium 117 L* Potassium 4.0 Chloride 83 L Carbon Dioxide 26 BUN 12 Creatinine 0.75 Glucose 107 H Calcium 9.4 - ABG Interpretation ABG results: PT/INR, D-dimer PT 13.6 Seconds (9.4-12.1) H 07/25/17 06:25 Consult Discharge Plan - Plan Referrals: Brenda Bearden MD [Primary Care Provider] -
[2017-07-25 14:21] LABS: BUN/Creatinine Ratio 16 (6-26); Blood Urea Nitrogen 13 mg/dL (8-23); Calcium 9.4 mg/dL (8.6-10.3); Carbon Dioxide 29 mEq/L (23-29); Chloride 83 mEq/L (98-107); Glucose 118 mg/dL (70-105); Osmolality,Calculated 245 (280-300); Sodium 117 mEq/L (136-145); eGFR For Non-African Americans > 60 (> 60)
--- NOTE | 2017-07-25 16:30 | Nephrology Consult Note ---
Date of Encounter: 07/26/17 Time of Encounter: 16:30 Assessment and Plan (1) Hyponatremia Current Visit: Yes Status: Acute Hyponatremia is related to the use of thiazide diuretics. Thiazide diuretics have been discontinued and patient was placed on saline with improvement in his serum sodium level. TSH is normal. I recommend fluid restriction of 1.5 liters and discontinue IV saline. If his serum sodium continues to rise he should be safe for discharge with close follow-up if his serum sodium is greater than 125 and he agrees to be adherent to his fluid restriction. (2) Atrial fibrillation with RVR Current Visit: Yes Status: Acute Rate is controlled. Management per primary team. (3) Hypomagnesemia Current Visit: Yes Status: Acute Replace as needed. (4) Hypertension Current Visit: Yes Status: Chronic Blood pressure is controlled on his current regimen. Do not resume HCTZ secondary to his hyponatremia. Qualifiers: Hypertension type: essential hypertension Qualified Code(s): I10 - Essential (primary) hypertension History of Present Illness - Reason for Consult Consult date: 07/25/17 hyponatremia - Chief Complaint Hyponatremia - History of Present Illness Mr. Whitmore is a 76 yo man seen on 07/25/2017 in consultation for hyponatremia. He presented with fevers and myalgias and was diagnosed with influenza as well as atrial fibrillation with RVR. He was found to have hyponatremia on admission that acutely worsened for unclear reasons. [facility] was consulted to assist with management. The patient denies nausea, vomiting or diarrhea. He has been eating and drinking well. Past Med Surg Social Fam HX - Past Medical History Medical history: hypertension Psychiatric history: no psych history - Social History Smoking Status: Former smoker (remote) Smokeless Tobacco Status: No Alcohol use: none Drug use: none Medications and Allergies Aspirin Enteric Coated [Aspirin EC] 81 mg PO DAILY 07/21/17 [History] Latanoprost [Xalatan] 1 drop OP HS 07/21/17 [History] Lisinopril [Zestril] 40 mg PO DAILY 07/21/17 [History] Metoprolol [Lopressor] 50 mg PO BID 07/21/17 [History] Triamterene/HCTZ 37.5/25mg [Dyazide] 1 each PO DAILY 07/21/17 [History] 3 Allergy/AdvReac Type Severity Reaction Status Date / Time No Known Allergies Allergy Verified 07/21/17 11:11 Review of Systems All Systems: reviewed and no additional remarkable complaints except as stated ( as documented in HPI.) Exam - Vital Signs Vital signs: Initial Vital Signs Temp Pulse Resp BP Pulse Ox 98.2 F 106 20 159/102 99 07/21/17 11:11 07/21/17 11:11 07/21/17 11:11 07/21/17 11:11 07/21/17 11:11 Vital Signs - Last 8 Hours Temp Pulse Resp BP Pulse Ox 07/25/17 16:24 98 F 88 18 132/98 97 07/25/17 12:00 96.8 F L 91 16 130/66 96 Intake and Output 07/25/17 07/25/17 07/25/17 07:59 15:59 23:59 Intake Total 0 / 0 360 / 360 Output Total 0 / 0 200 / 200 150 / 150 Balance 0 / 0 160 / 160 -150 / -150 Intake: Oral 0 / 0 360 / 360 Output: Urine 0 / 0 200 / 200 150 / 150 Other: Meal Lunch Percent of Meal Consumed 10% Weight 74.1 kg Patient Weight 07/25/17 23:59 Weight 74.1 kg - General Appearance General appearance: well-developed, well-nourished EENT: ATNC Neck: supple Respiratory: clear Cardiology: no edema, regular rate, irregular rhythm Gastrointestinal: no tenderness Integumentary: warm and dry Neurologic: alert and oriented x3 Musculoskeletal: no cyanosis Psychiatric: mood/affect appropriate Results - Lab Results 07/26/17 06:46 07/26/17 06:46 Most recent lab results Calcium 9.4 mg/dL (8.6-10.3) 07/25/17 13:06 Magnesium 1.6 mg/dL (1.6-2.6) 07/24/17 04:57 Urine Sodium 90.0 mEq/L 07/25/17 08:30 Consult Discharge Plan - Plan Referrals: Brandi Kinsey CNP [Partnered Physician] - 08/22/17 9:30 am Brenda Bearden MD [Primary Care Provider] - 08/03/17 10:00 am
[2017-07-25] MEDS: *HR* Warfarin 3 MG TABLET PO SCH (17:21)
[2017-07-25 18:12] LABS: Magnesium 1.5 mg/dL (1.6-2.6); Phosphorous 2.4 mg/dL (2.7-4.5)
[2017-07-25 19:42] LABS: BUN/Creatinine Ratio 18 (6-26); Blood Urea Nitrogen 14 mg/dL (8-23); Calcium 9.2 mg/dL (8.6-10.3); Carbon Dioxide 26 mEq/L (23-29); Chloride 85 mEq/L (98-107); Glucose 123 mg/dL (70-105); Osmolality,Calculated 248 (280-300); Potassium 3.6 mEq/L (3.5-5.1); Sodium 118 mEq/L (136-145); eGFR For Non-African Americans > 60 (> 60)
[2017-07-25] MEDS: Latanoprost 2.5 ML BOTTLE BOTH EYES SCH (21:16)
[2017-07-25] MEDS ORDERED: 0.9 % Sodium Chloride 1,000 ML IVC SCH (23:45)
[2017-07-26 01:31] LABS: BUN/Creatinine Ratio 16 (6-26); Blood Urea Nitrogen 12 mg/dL (8-23); Calcium 8.7 mg/dL (8.6-10.3); Carbon Dioxide 26 mEq/L (23-29); Chloride 87 mEq/L (98-107); Glucose 101 mg/dL (70-105); Osmolality,Calculated 246 (280-300); Potassium 4.1 mEq/L (3.5-5.1); Sodium 118 mEq/L (136-145); eGFR For Non-African Americans > 60 (> 60)
[2017-07-26] MEDS: *HR* Heparin 5,000 UNIT/ML VIAL SQ SCH (06:57)
[2017-07-26 07:47] LABS: INR 1.3; Prothrombin Time 14.2 Seconds (9.4-12.1)
[2017-07-26 08:02] LABS: Basophils % 0.1 %; Eosinophils # 0.1 K/mcL (0.0-0.6); Eosinophils % 0.9 %; Hematocrit 38.4 % (37.5-50.1); Immature Granulocytes % 0.7 % (0-4); Lymphocytes # 1.2 K/mcL (0.6-4.6); Mean Corpuscular HGB Conc 36.5 g/dL (31.6-35.5); Mean Corpuscular Hemoglobin 32.7 pg (28.0-33.3); Mean Corpuscular Volume 89.7 fL (83.0-100.0); Mean Platelet Volume 9.7 fL (9.4-12.4); Monocytes % 14.5 %; Neutrophils # 4.5 K/mcL (1.6-8.9); Platelet Count 187 K/mcL (140-400); Red Blood Count 4.28 M/mcL (4.19-5.50); Red Cell Distribution Width 12.4 % (11.5-14.5); Segmented Neutrophils % 66.8 %
[2017-07-26] MEDS: Lisinopril 20 MG TABLET PO SCH (08:47)
[2017-07-26] MEDS: Aspirin Enteric Coated 81 MG Tablet PO SCH (08:47)
[2017-07-26 09:45] LABS: BUN/Creatinine Ratio 15 (6-26); Blood Urea Nitrogen 11 mg/dL (8-23); Calcium 8.6 mg/dL (8.6-10.3); Chloride 89 mEq/L (98-107); Glucose 93 mg/dL (70-105); Osmolality,Calculated 249 (280-300); Potassium 3.7 mEq/L (3.5-5.1); Sodium 120 mEq/L (136-145); eGFR For Non-African Americans > 60 (> 60)
[2017-07-26] MEDS ORDERED: Potassium Phosphate 44 MEQ in 0.9 % Sodium Chloride 250 ML IVPB ONE (10:35)
[2017-07-26] MEDS: Magnesium Oxide 400 MG TABLET PO SCH ×2 (12:58→20:34)
[2017-07-26 14:19] LABS: BUN/Creatinine Ratio 17 (6-26); Blood Urea Nitrogen 12 mg/dL (8-23); Calcium 8.9 mg/dL (8.6-10.3); Carbon Dioxide 26 mEq/L (23-29); Chloride 89 mEq/L (98-107); Glucose 129 mg/dL (70-105); Osmolality,Calculated 253 (280-300); Potassium 3.7 mEq/L (3.5-5.1); Sodium 121 mEq/L (136-145); eGFR For Non-African Americans > 60 (> 60)
--- NOTE | 2017-07-26 17:29 | Internal Med Progress Note ---
Date of Encounter: 07/26/17 Time of Encounter: 17:27 - Assessment and plan (1) Hyponatremia Current Visit: Yes Status: Acute Assessment and plan: Possibly chronic, possibly due to dehydration, diuretics Had improvement with IV Fluids - Hold Dyazide - Nephrology consulted, recommendations appreciated - Fluid restrict now and monitor. Goal sodium to be >125. (2) Influenza A Current Visit: Yes Status: Acute Assessment and plan: continue tamiflu Showed improvement. (3) Atrial fibrillation with RVR Current Visit: Yes Status: Acute Assessment and plan: Newly diagnosed Resolved back to sinus Tele review shows more sinus tach with PACS TSH WNL Consulted cardiology, review noted Now in sinus rhythm and HR controlled, patient is on metoprolol at home, continue same CHADS score of 2 for HTN and age Started on Warfarin by cardiology, monitor INR ECHO has been done -showed preserved EF, no WMA (4) Hypomagnesemia Current Visit: Yes Status: Acute Assessment and plan: replaced, Mag 1.7 this a.m, continue to monitor (5) Hypertension Current Visit: Yes Status: Chronic Assessment and plan: Hold Dyazide because of hyponatremia. Qualifiers: Hypertension type: essential hypertension Qualified Code(s): I10 - Essential (primary) hypertension (6) DVT prophylaxis Current Visit: Yes Status: Acute Assessment and plan: Heparin SQ - Subjective Interval history: No complaints, no acute events. - Constitutional Vitals: Temp Pulse Resp BP Pulse Ox 98.3 F 77 18 129/91 96 07/26/17 16:01 07/26/17 16:01 07/26/17 16:01 07/26/17 16:01 07/26/17 16:01 General appearance: Present: A&O X 3, pleasant, no acute distress - Head Head exam: Present: atraumatic, normocephalic - Eye Eye exam: Present: PERRL, conjuntiva pink, sclera anicteric Pupils: Present: PERRL - Neck Neck exam general surgery: Present: supple, trachea midline. Absent: lymphadenopathy - Respiratory Respiratory exam: Present: CTAB. Absent: accessory muscle use, rales, rhonchi, wheezes - Cardiovascular Cardiovascular exam: Present: RRR, +S1, +S2. Absent: diastolic murmur, gallop, rubs, systolic murmur - GI/Abdominal GI/Abdominal exam: Present: normal bowel sounds, soft, no peritoneal signs. Absent: distended, tenderness - Extremities Exam Extremities exam: Present: warm, radial pulses palpable and symmetrical. Absent : calf tenderness, cyanotic, pedal edema - Neurological Exam Neurological exam: Present: CN II-XII intact, oriented X3, no focal deficits. Absent: pronater drift, facial droop, speech deficit - Skin Skin exam: Present: dry, intact Internal Medicine: Result - Labs CBC & Chem 7: 07/26/17 06:46 07/26/17 16:21 Labs: Short CBC 07/26/17 Range/Units 06:46 WBC 6.8 (4.3-11.1) K/mcL Hgb 14.0 (12.9-16.9) g/dL Hct 38.4 (37.5-50.1) % Plt Count 187 (140-400) K/mcL Neutrophils # 4.5 (1.6-8.9) K/mcL BMP 07/25/17 07/25/17 07/26/17 16:56 18:41 00:36 Sodium 117 L* 118 L* 118 L* Potassium 3.6 4.1 Chloride 85 L 87 L Carbon Dioxide 26 26 BUN 14 12 Creatinine 0.77 0.76 Glucose 123 H 101 Calcium 9.2 8.7 07/26/17 07/26/17 07/26/17 06:46 13:45 16:21 Sodium 120 L* 121 L 120 L* Potassium 3.7 3.7 Chloride 89 L 89 L Carbon Dioxide 26 BUN 11 12 Creatinine 0.73 0.72 Glucose 93 129 H Calcium 8.6 8.9 - ABG Interpretation ABG results: PT/INR, D-dimer PT 14.2 Seconds (9.4-12.1) H 07/26/17 06:46 Consult Discharge Plan - Plan Referrals: Brandi Kinsey CNP [Partnered Physician] - 08/01/17 10:00 am Brenda Bearden MD [Primary Care Provider] - 08/03/17 10:00 am
[2017-07-26] MEDS ORDERED: *HR* Warfarin 5 MG TABLET PO ONE (18:00)
[2017-07-26 19:17] LABS: Carbon Dioxide 24 mEq/L (23-29)
[2017-07-26] MEDS: Latanoprost 2.5 ML BOTTLE BOTH EYES SCH (20:35)
[2017-07-27 06:02] LABS: INR 1.6; Prothrombin Time 16.9 Seconds (9.4-12.1)
[2017-07-27 06:11] LABS: BUN/Creatinine Ratio 14 (6-26); Blood Urea Nitrogen 10 mg/dL (8-23); Calcium 8.9 mg/dL (8.6-10.3); Carbon Dioxide 22 mEq/L (23-29); Chloride 92 mEq/L (98-107); Glucose 109 mg/dL (70-105); Osmolality,Calculated 254 (280-300); Potassium 3.9 mEq/L (3.5-5.1); Sodium 122 mEq/L (136-145); eGFR For Non-African Americans > 60 (> 60)
[2017-07-27] MEDS: Aspirin Enteric Coated 81 MG Tablet PO SCH (08:01)
[2017-07-27] MEDS: Magnesium Oxide 400 MG TABLET PO SCH ×2 (08:01→22:19)
[2017-07-27] MEDS: Lisinopril 20 MG TABLET PO SCH (08:01)
--- NOTE | 2017-07-27 10:54 | Nephrology Progress Note ---
Date of Encounter: 07/27/17 Time of Encounter: 09:40 - Assessment and Plan (1) Hyponatremia Current Visit: Yes Status: Acute Trending better. Asymptomatic. Euvolemic. TSH was WNL. Krishna was not low and the UOsmo was ever so slightly higher than would be expected for his degree of hyponatremia, suggesting SIADH. Though there may have initially also been mild dehydration. Cont F.R., which is working. If his hyponatremia does not correct fully, then would add NaCl. He is euvolemic so Tolvaptan may be an option as well, but since he's asymptomatic, will hold off for now. Goal correction rate of the PNa is about 6-8mEq per 24hr. Will follow with you. Thank you. (2) Hypertension Current Visit: Yes Status: Chronic Cont the KALYANI but avoid thiazide diuretics, SSRIs or AED medications. Qualifiers: Hypertension type: essential hypertension Qualified Code(s): I10 - Essential (primary) hypertension (3) Dehydration Current Visit: Yes Status: Acute Improving and the IVF were helpful as well with the hyponatremia. (4) Hypomagnesemia Current Visit: Yes Status: Acute Recommend replacing and could utilize oral Mag. Subjective Principal diagnosis: Hyponatremia Interval history: Pt was seen/examined. He did not affirm N/V/D or severe pain. He voiced having a good appetite and denied having severe swelling/edema. Objective - Vital Signs Vital signs: Vital Signs Temp Pulse Resp BP Pulse Ox 07/27/17 07:26 97.4 F L 83 18 123/80 98 07/27/17 04:24 97.9 F 111 18 142/96 96 07/26/17 23:44 98.6 F 82 17 135/89 96 07/26/17 20:41 98 07/26/17 19:17 98.1 F 100 19 159/98 98 07/26/17 16:01 98.3 F 77 18 129/91 96 07/26/17 13:04 88 20 146/95 94 07/26/17 10:57 97.4 F L 76 18 138/96 96 Intake and Output 07/26/17 07/27/17 07/27/17 23:59 07:59 15:59 Intake Total 240 / 240 440 / 440 Output Total 1285 / 1285 1100 / 1100 250 / 250 Balance -1045 / -1045 -660 / -660 -250 / -250 Intake: Oral 240 / 240 440 / 440 Output: Urine 1285 / 1285 1100 / 1100 250 / 250 Other: Meal Dinner Percent of Meal Consumed 100% - General Appearance General appearance: Present: well-developed, well-nourished, appears started age , cachectic, frail EENT: Present: ATNC, PERRL, mucous membranes moist Additional Comments: Hard of hearing Neck: Present: supple Respiratory: Present: course breath sounds Cardiology: Present: no edema, regular rate, irregular rhythm, normal S1, normal S2 Gastrointestinal: Present: normoactive bowel sounds, no tenderness, no guarding Integumentary: Present: no rash, warm and dry Neurologic: Present: no focal deficit, no asterixis, alert and oriented x3 Musculoskeletal: Present: no deformities, no erythema, no cyanosis Psychiatric: Present: mood/affect appropriate, cooperative - Lab 07/26/17 06:46 07/27/17 05:17 Most recent lab results Calcium 8.9 mg/dL (8.6-10.3) 07/27/17 05:17 Phosphorus 2.4 mg/dL (2.7-4.5) L 07/25/17 16:56 Magnesium 1.5 mg/dL (1.6-2.6) L 07/25/17 16:56 Urine Sodium 90.0 mEq/L 07/25/17 08:30 Consult Discharge Plan - Plan Referrals: Brandi Kinsey CNP [Partnered Physician] - 08/01/17 10:00 am Brenda Bearden MD [Primary Care Provider] - 08/03/17 10:00 am
--- NOTE | 2017-07-27 16:48 | Internal Med Progress Note ---
Date of Encounter: 07/27/17 Time of Encounter: 16:47 - Assessment and plan (1) Hyponatremia Current Visit: Yes Status: Acute Assessment and plan: Possibly chronic, possibly due to dehydration, diuretics Had improvement with IV Fluids - Hold Dyazide - Fluid restrict now and monitor. - Nephrology consulted, recommendations appreciated (2) Influenza A Current Visit: Yes Status: Acute Assessment and plan: continue tamiflu Showed improvement. (3) Atrial fibrillation with RVR Current Visit: Yes Status: Acute Assessment and plan: Newly diagnosed Resolved back to sinus Tele review shows more sinus tach with PACS TSH WNL Consulted cardiology, review noted Now in sinus rhythm and HR controlled, patient is on metoprolol at home, continue same CHADS score of 2 for HTN and age Started on Warfarin by cardiology, monitor INR ECHO has been done -showed preserved EF, no WMA (4) Hypomagnesemia Current Visit: Yes Status: Acute Assessment and plan: replaced, Mag 1.7 this a.m, continue to monitor (5) Hypertension Current Visit: Yes Status: Chronic Assessment and plan: Hold Dyazide because of hyponatremia. Qualifiers: Hypertension type: essential hypertension Qualified Code(s): I10 - Essential (primary) hypertension (6) DVT prophylaxis Current Visit: Yes Status: Acute Assessment and plan: Heparin SQ - Subjective Interval history: No complaints, no acute events. - Constitutional Vitals: Temp Pulse Resp BP Pulse Ox 98.1 F 108 18 139/88 95 07/27/17 15:52 07/27/17 15:52 07/27/17 15:52 07/27/17 15:52 07/27/17 15:52 General appearance: Present: A&O X 3, pleasant, no acute distress - Head Head exam: Present: atraumatic, normocephalic - Eye Eye exam: Present: PERRL, conjuntiva pink, sclera anicteric Pupils: Present: PERRL - Neck Neck exam general surgery: Present: supple, trachea midline. Absent: lymphadenopathy - Respiratory Respiratory exam: Present: CTAB. Absent: accessory muscle use, rales, rhonchi, wheezes - Cardiovascular Cardiovascular exam: Present: RRR, +S1, +S2. Absent: diastolic murmur, gallop, rubs, systolic murmur - GI/Abdominal GI/Abdominal exam: Present: normal bowel sounds, soft, no peritoneal signs. Absent: distended, tenderness - Extremities Exam Extremities exam: Present: warm, radial pulses palpable and symmetrical. Absent : calf tenderness, cyanotic, pedal edema - Neurological Exam Neurological exam: Present: CN II-XII intact, oriented X3, no focal deficits. Absent: pronater drift, facial droop, speech deficit - Skin Skin exam: Present: dry, intact Internal Medicine: Result - Labs CBC & Chem 7: 07/26/17 06:46 07/27/17 05:17 Labs: BMP 07/26/17 07/26/17 07/27/17 06:46 16:21 05:17 Sodium 120 L* 122 L Potassium 3.9 Chloride 92 L Carbon Dioxide 24 22 L BUN 10 Creatinine 0.70 Glucose 109 H Calcium 8.9 - ABG Interpretation ABG results: PT/INR, D-dimer PT 16.9 Seconds (9.4-12.1) H 07/27/17 05:17 Consult Discharge Plan - Plan Referrals: Brandi Kinsey CNP [Partnered Physician] - 08/01/17 10:00 am Brenda Bearden MD [Primary Care Provider] - 08/03/17 10:00 am
[2017-07-27] MEDS: *HR* Warfarin 3 MG TABLET PO SCH (16:53)
[2017-07-27] MEDS: Latanoprost 2.5 ML BOTTLE BOTH EYES SCH (22:20)
[2017-07-28 06:19] LABS: BUN/Creatinine Ratio 18 (6-26); Blood Urea Nitrogen 14 mg/dL (8-23); Calcium 9.1 mg/dL (8.6-10.3); Carbon Dioxide 23 mEq/L (23-29); Chloride 93 mEq/L (98-107); Glucose 104 mg/dL (70-105); Magnesium 1.7 mg/dL (1.6-2.6); Osmolality,Calculated 259 (280-300); Potassium 3.9 mEq/L (3.5-5.1); Sodium 124 mEq/L (136-145); eGFR For Non-African Americans > 60 (> 60)
[2017-07-28 06:21] LABS: INR 1.8; Prothrombin Time 19.2 Seconds (9.4-12.1)
[2017-07-28] MEDS: Aspirin Enteric Coated 81 MG Tablet PO SCH (09:43)
[2017-07-28] MEDS: Magnesium Oxide 400 MG TABLET PO SCH ×2 (09:43→22:39)
[2017-07-28] MEDS: Lisinopril 20 MG TABLET PO SCH (09:43)
[2017-07-28] MEDS ORDERED: Tolvaptan 15 MG TABLET PO ONE (11:55)
--- NOTE | 2017-07-28 11:55 | Nephrology Progress Note ---
Date of Encounter: 07/28/17 Time of Encounter: 10:44 - Assessment and Plan (1) Hyponatremia Status: Acute Remains asymptomatic and euvolemic hyponatremia. Will provide a one time dose of Tolvaptan 15mg po. Expect a free water diuresis and improvement of the PNa levels. Asymptomatic. Euvolemic. TSH was WNL. Krishna was not low and the UOsmo was ever so slightly higher than would be expected for his degree of hyponatremia, suggesting SIADH. Though there may have initially also been mild dehydration. Cont F.R., which is working. If his hyponatremia does not correct fully, then would add NaCl. He is euvolemic so Tolvaptan may be an option as well, but since he's asymptomatic, will hold off for now. Goal correction rate of the PNa is about 6-8mEq per 24hr. Will follow with you. Thank you. (2) Hypertension Status: Chronic Cont the KALYANI but avoid thiazide diuretics, SSRIs or AED medications. Qualifiers: Hypertension type: essential hypertension Qualified Code(s): I10 - Essential (primary) hypertension (3) Dehydration Status: Acute Improving and the IVF were helpful as well with the hyponatremia. (4) Hypomagnesemia Status: Acute Recommend replacing and could utilize oral Mag. Subjective Principal diagnosis: Hyponatremia Interval history: Pt was seen/examined. He did not affirm N/V/D or severe pain. He voiced having a good appetite and denied having severe swelling/edema. Objective - Vital Signs Vital signs: Vital Signs Temp Pulse Resp BP Pulse Ox 07/28/17 10:51 95 07/28/17 07:05 98.3 F 95 18 143/97 95 07/28/17 05:00 98.6 F 86 16 128/85 97 07/27/17 22:20 95 07/27/17 19:00 98.4 F 126 16 138/81 97 07/27/17 15:52 98.1 F 108 18 139/88 95 Intake and Output 07/27/17 07/28/17 07/28/17 23:59 07:59 15:59 Intake Total 240 / 240 220 / 220 Output Total 200 / 200 200 / 200 Balance 40 / 40 20 / 20 Intake: Oral 240 / 240 220 / 220 Output: Urine 200 / 200 200 / 200 Other: Meal Breakfast Percent of Meal Consumed 100% # Voids 2 Weight 73.4 kg Patient Weight 07/28/17 23:59 Weight 73.4 kg - General Appearance Exam: General appearance: Present: well-developed, well-nourished, appears started age , cachectic, frail EENT: Present: ATNC, PERRL, mucous membranes moist Additional Comments: Hard of hearing Neck: Present: supple Respiratory: Present: course breath sounds Cardiology: Present: no edema, regular rate, irregular rhythm, normal S1, normal S2 Gastrointestinal: Present: normoactive bowel sounds, no tenderness, no guarding Integumentary: Present: no rash, warm and dry, without venous stasis Neurologic: Present: no focal deficit, no asterixis, alert and oriented x3 Musculoskeletal: Present: no deformities, no erythema, no cyanosis Psychiatric: Present: mood/affect appropriate, cooperative - Lab 07/26/17 06:46 07/29/17 07:27 Most recent lab results Calcium 9.1 mg/dL (8.6-10.3) 07/28/17 05:32 Phosphorus 2.4 mg/dL (2.7-4.5) L 07/25/17 16:56 Magnesium 1.7 mg/dL (1.6-2.6) 07/28/17 05:32 Urine Sodium 90.0 mEq/L 07/25/17 08:30 Consult Discharge Plan - Plan Instructions: Metoprolol (By mouth), Warfarin (By mouth), Atrial Fibrillation ( DC), Atrial Fibrillation (GEN), Hyponatremia (GEN), Chronic Hypertension (DC), Vitamin K in Foods (GEN) Additional Instructions: PLEASE CHECK HEART RATE (PULSE) EVERY DAY AND IF HEART RATE >110 OR <50 CONSISTENTLY PLEASE CALL YOUR PRIMARY CARE PHYSICIAN Referrals: Fabricio Gibson DO [Partnered Physician] - (Follow-up in one week. The office will call you with appointment date and time, if not called by 07/31/17 please call office for information) Brandi Kinsey CNP [Partnered Physician] - 08/01/17 10:00 am Brenda Bearden MD [Primary Care Provider] - 08/03/17 10:00 am Prescriptions: Metoprolol Tartrate 75 mg PO BID #60 tablet Warfarin [Coumadin] 3 mg PO DAILY #14 tablet
--- NOTE | 2017-07-28 16:51 | Internal Med Progress Note ---
Date of Encounter: 07/28/17 Time of Encounter: 16:50 - Assessment and plan (1) Hyponatremia Current Visit: Yes Status: Acute Assessment and plan: Possibly chronic, possibly due to dehydration, diuretics Had improvement with IV Fluids - Discontinue Dyazide - Fluid restrict now and monitor. - Nephrology consulted, recommendations appreciated (2) Influenza A Current Visit: Yes Status: Acute Assessment and plan: continue tamiflu Showed improvement. (3) Atrial fibrillation with RVR Current Visit: Yes Status: Acute Assessment and plan: Newly diagnosed Resolved back to sinus Tele review shows more sinus tach with PACS TSH WNL Consulted cardiology, review noted Now in sinus rhythm and HR controlled, patient is on metoprolol at home, continue same CHADS score of 2 for HTN and age Started on Warfarin by cardiology, monitor INR ECHO has been done -showed preserved EF, no WMA (4) Hypomagnesemia Current Visit: Yes Status: Acute Assessment and plan: replaced, Mag 1.7 this a.m, continue to monitor (5) Hypertension Current Visit: Yes Status: Chronic Assessment and plan: Hold Dyazide because of hyponatremia. Qualifiers: Hypertension type: essential hypertension Qualified Code(s): I10 - Essential (primary) hypertension (6) DVT prophylaxis Current Visit: Yes Status: Acute Assessment and plan: Heparin SQ - Subjective Interval history: No complaints, no acute events. - Constitutional Vitals: Temp Pulse Resp BP Pulse Ox 98.4 F 94 17 119/76 98 07/28/17 15:26 07/28/17 15:26 07/28/17 15:26 07/28/17 15:26 07/28/17 15:26 General appearance: Present: A&O X 3, pleasant, no acute distress - Head Head exam: Present: atraumatic, normocephalic - Eye Eye exam: Present: PERRL, conjuntiva pink, sclera anicteric Pupils: Present: PERRL - Neck Neck exam general surgery: Present: supple, trachea midline. Absent: lymphadenopathy - Respiratory Respiratory exam: Present: CTAB. Absent: accessory muscle use, rales, rhonchi, wheezes - Cardiovascular Cardiovascular exam: Present: RRR, +S1, +S2. Absent: diastolic murmur, gallop, rubs, systolic murmur - GI/Abdominal GI/Abdominal exam: Present: normal bowel sounds, soft, no peritoneal signs. Absent: distended, tenderness - Extremities Exam Extremities exam: Present: warm, radial pulses palpable and symmetrical. Absent : calf tenderness, cyanotic, pedal edema - Neurological Exam Neurological exam: Present: CN II-XII intact, oriented X3, no focal deficits. Absent: pronater drift, facial droop, speech deficit - Skin Skin exam: Present: dry, intact Internal Medicine: Result - Labs CBC & Chem 7: 07/26/17 06:46 07/28/17 05:32 Labs: BMP 07/28/17 05:32 Sodium 124 L Potassium 3.9 Chloride 93 L Carbon Dioxide 23 BUN 14 Creatinine 0.79 Glucose 104 Calcium 9.1 - ABG Interpretation ABG results: PT/INR, D-dimer PT 19.2 Seconds (9.4-12.1) H 07/28/17 05:32 Consult Discharge Plan - Plan Referrals: Brandi Kinsey CNP [Partnered Physician] - 08/01/17 10:00 am Brenda Bearden MD [Primary Care Provider] - 08/03/17 10:00 am
[2017-07-28] MEDS: *HR* Warfarin 3 MG TABLET PO SCH (17:50)
[2017-07-28] MEDS: Latanoprost 2.5 ML BOTTLE BOTH EYES SCH (22:40)
[2017-07-29 07:11] VITALS: BP 133/97
[2017-07-29 07:51] LABS: INR 1.7; Prothrombin Time 18.7 Seconds (9.4-12.1)
[2017-07-29] MEDS: Magnesium Oxide 400 MG TABLET PO SCH (07:55)
[2017-07-29] MEDS: Aspirin Enteric Coated 81 MG Tablet PO SCH (07:55)
[2017-07-29] MEDS: Lisinopril 20 MG TABLET PO SCH (07:55)
[2017-07-29 08:08] LABS: BUN/Creatinine Ratio 19 (6-26); Blood Urea Nitrogen 15 mg/dL (8-23); Calcium 9.2 mg/dL (8.6-10.3); Carbon Dioxide 22 mEq/L (23-29); Chloride 96 mEq/L (98-107); Glucose 109 mg/dL (70-105); Osmolality,Calculated 261 (280-300); Potassium 3.9 mEq/L (3.5-5.1); Sodium 125 mEq/L (136-145); eGFR For Non-African Americans > 60 (> 60)
--- NOTE | 2017-07-29 10:32 | Nephrology Progress Note ---
Date of Encounter: 07/29/17 Time of Encounter: 09:30 - Assessment and Plan (1) Hyponatremia Status: Acute Remains asymptomatic and euvolemic hyponatremia. Will provide another one time dose of Tolvaptan, and since he tolerated the 15mg dose with only a slight improvement, today I recommend a 30mg tablet x1. Expect a free water diuresis and improvement of the PNa levels. Slowly trending better. Asymptomatic. Euvolemic. TSH was WNL. Krishna was not low and the UOsmo was ever so slightly higher than would be expected for his degree of hyponatremia, suggesting SIADH. Though there may have initially also been mild dehydration. If his hyponatremia does not correct fully, then would add NaCl. Goal correction rate of the PNa is about 6-8mEq per 24hr. Will follow with you. Thank you. (2) Hypertension Status: Chronic Cont the KALYANI but avoid thiazide diuretics, SSRIs or AED medications. Qualifiers: Hypertension type: essential hypertension Qualified Code(s): I10 - Essential (primary) hypertension (3) Dehydration Status: Acute Improving and the IVF were helpful as well with the hyponatremia. (4) Hypomagnesemia Status: Acute Recommend replacing and could utilize oral Mag. Subjective Principal diagnosis: Hyponatremia Interval history: Pt was seen/examined. He did not affirm N/V/D or uremic symptoms. Feeling well overall, he affirmed. Objective - Vital Signs Vital signs: Vital Signs Temp Pulse Resp BP Pulse Ox 07/29/17 10:02 94 07/29/17 07:06 98.8 F 110 18 133/97 94 07/29/17 02:35 98.3 F 108 16 136/95 97 07/28/17 23:32 98.5 F 97 16 126/97 96 07/28/17 19:18 98.0 F 126 16 141/81 07/28/17 15:26 98.4 F 94 17 119/76 98 07/28/17 10:51 95 Intake and Output 07/28/17 07/29/17 07/29/17 23:59 07:59 15:59 Intake Total 120 / 120 100 / 100 Output Total 1050 / 1050 300 / 300 250 / 250 Balance -930 / -930 -300 / -300 -150 / -150 Intake: Oral 120 / 120 100 / 100 Output: Urine 1050 / 1050 300 / 300 250 / 250 Other: Meal Dinner Percent of Meal Consumed 100% Weight 75.7 kg Patient Weight 07/29/17 23:59 Weight 75.7 kg - General Appearance Exam: General appearance: Present: well-developed, well-nourished, appears started age , cachectic, frail EENT: Present: ATNC, PERRL, mucous membranes moist Additional Comments: Hard of hearing Neck: Present: supple Respiratory: Present: course breath sounds Cardiology: Present: no edema, regular rate, irregular rhythm, normal S1, normal S2 Gastrointestinal: Present: normoactive bowel sounds, no tenderness, no guarding Integumentary: Present: no rash, warm and dry Neurologic: Present: no focal deficit, no asterixis, alert and oriented x3, moves all without generalized deficits noted Musculoskeletal: Present: no deformities, no erythema, no cyanosis Psychiatric: Present: mood/affect appropriate, cooperative - Lab 07/26/17 06:46 07/29/17 07:27 Most recent lab results Calcium 9.2 mg/dL (8.6-10.3) 07/29/17 07:27 Phosphorus 2.4 mg/dL (2.7-4.5) L 07/25/17 16:56 Magnesium 1.7 mg/dL (1.6-2.6) 07/28/17 05:32 Urine Sodium 90.0 mEq/L 07/25/17 08:30 Consult Discharge Plan - Plan Instructions: Metoprolol (By mouth), Warfarin (By mouth), Atrial Fibrillation ( DC), Atrial Fibrillation (GEN), Hyponatremia (GEN), Chronic Hypertension (DC), Vitamin K in Foods (GEN) Additional Instructions: PLEASE CHECK HEART RATE (PULSE) EVERY DAY AND IF HEART RATE >110 OR <50 CONSISTENTLY PLEASE CALL YOUR PRIMARY CARE PHYSICIAN Referrals: Fabricio Gibson DO [Partnered Physician] - (Follow-up in one week. The office will call you with appointment date and time, if not called by 07/31/17 please call office for information) Brandi Kinsey CNP [Partnered Physician] - 08/01/17 10:00 am Brenda Bearden MD [Primary Care Provider] - 08/03/17 10:00 am Prescriptions: Metoprolol Tartrate 75 mg PO BID #60 tablet Warfarin [Coumadin] 3 mg PO DAILY #14 tablet
[2017-07-29] MEDS ORDERED: Tolvaptan 15 MG TABLET PO ONE (10:45)
--- NOTE | 2017-07-29 15:01 | Discharge Summary ---
- NOTES TO OUTPATIENT PROVIDER Notes to Outpatient Provider: BMP in 3 days. INR in 3 days. Monitor HR at current metoprolol dose Orders not resulted at time of discharge: Pending orders 07/30/17 04:00 BMP [Basic Metabolic Panel] AM 0400 PT/INR [Prothrombin Time INR] [COAG] AM 0400 Date of Encounter: 07/29/17 Time of Encounter: 14:55 - Discharge Diagnosis (1) Atrial fibrillation with RVR Priority: Primary Status: Acute (2) Influenza A Priority: Secondary Status: Acute (3) Hyponatremia Priority: Secondary Status: Acute (4) Hypomagnesemia Priority: Secondary Status: Acute (5) Hypertension Priority: Secondary Status: Chronic Qualifiers: Hypertension type: essential hypertension Qualified Code(s): I10 - Essential (primary) hypertension (6) DVT prophylaxis Priority: Secondary Status: Acute Hospital course: Mr. Whitmore is a 76 year old male with history of hypertension presented for 3 days of myalgias and flu like symptoms. In ED he was found to be in new onset atrial fibrillation with rapid ventricular response, rate of 120-130s. He tested positive for Flu. Chest x-ray was unremarkable. He had borderline leukopenia. Sodium was low at 125. He as admitted and Cardiology was consulted. He was continued on metoprolol which he was taking at home. Echocardiogram showed preserved EF with no wall motion abnormalities. Patient converted to sinus rhythm but was still tachycardic. He was started on coumadin after monitoring. Dyazide was held because of hyponatremia. Sodium reached as low as 117, and gradually improved with IV fluids. Nephrology was consulted. After IV fluid support, fluids were discontinued and he was placed on fluid restriction. Patient sodium did gradually come up, taking about 4 days to reach 125 mEq/L. Patient had no signs or symptoms of altered mental status and he appeared euvolemic during admission. He was discharged home in stable condition, plan to follow-up with INR and sodium. Follow-up primary care physician in 3 days and with Nephrology in about 1 week. - Time Spent with Patient Total time spent providing and/or coordinating discharge services: - Discharge Medications Home Medications: Aspirin Enteric Coated [Aspirin EC] 81 mg PO DAILY 07/21/17 [History] Latanoprost [Xalatan] 1 drop OP HS 07/21/17 [History] Lisinopril [Zestril] 40 mg PO DAILY 07/21/17 [History] Metoprolol Tartrate 75 mg PO BID #60 tablet 07/29/17 [Rx] Warfarin [Coumadin] 3 mg PO DAILY #14 tablet 07/29/17 [Rx] Allergies/Adverse Reactions: 3 Allergy/AdvReac Type Severity Reaction Status Date / Time No Known Allergies Allergy Verified 07/21/17 11:11 Date of admission: 07/21/17 15:00 Primary care physician: Brenda Bearden, Consults: 07/22/17 12:30 Consult to Cardiology [CONS] Routine Comment: Consulting Provider: Card[facility] [place] Reason for Consult: Newly diagnosed Afib Call Completed: No 07/24/17 15:48 Consult to Nephrology [CONS] Routine Consulting Provider: Kidney Hollie/ELIS/MARIA/VARSHA Reason for Consult: Hyponatremia, unknown duration Call Completed: No Discharging clinician: Ashley Huston - Constitutional Vitals: Temp Pulse Resp BP Pulse Ox 98.8 F 110 18 133/97 94 07/29/17 07:06 07/29/17 07:06 07/29/17 07:06 07/29/17 07:06 07/29/17 10:02 General appearance: Present: A&O X 3, pleasant, no acute distress - Head Head exam: Present: atraumatic, normocephalic - Eye Eye exam: Present: PERRL, conjuntiva pink, sclera anicteric Pupils: Present: PERRL - Neck Neck exam general surgery: Present: supple, trachea midline. Absent: lymphadenopathy - Respiratory Respiratory exam: Present: CTAB. Absent: accessory muscle use, rales, rhonchi, wheezes - Cardiovascular Cardiovascular exam: Present: RRR, +S1, +S2. Absent: diastolic murmur, gallop, rubs, systolic murmur - GI/Abdominal GI/Abdominal exam: Present: normal bowel sounds, soft, no peritoneal signs. Absent: distended, tenderness - Extremities Exam Extremities exam: Present: warm, radial pulses palpable and symmetrical. Absent : calf tenderness, cyanotic, pedal edema - Neurological Exam Neurological exam: Present: CN II-XII intact, oriented X3, no focal deficits. Absent: pronater drift, facial droop, speech deficit - Skin Skin exam: Present: dry, intact - Patient Status Disposition: Home, Self-Care Condition: Fair Functional capacity at discharge: independent ambulation Overall status at discharge: patient is progressing back to baseline - Discharge Instructions Follow Up With: Brandi Kinsey CNP [Partnered Physician] - 08/01/17 10:00 am Brenda Bearden MD [Primary Care Provider] - 08/03/17 10:00 am Fabricio Gibson DO [Partnered Physician] - (Follow-up in one week.) - Diet and Activity Activity: increase activity as tolerated Diet: regular diet
[2017-07-29] MEDS ORDERED: *HR* Warfarin 5 MG TABLET PO ONE (18:00)
== END 2017-07-29 17:00 | disposition home or self-care (01) | DRG 309 ==
LOC: 2NENU 10:57 → EMEROO 10:57 → 2NENU 16:03
PROVIDERS: ADMIT Family Medicine; ATTEND Internal Medicine

== ENCOUNTER 2017-12-25 17:03 | Inpatient (IN) ==
--- NOTE | 2017-12-25 18:29 | Emergency Department Note ---
Disposition Clinical Impression: Acute urinary retention, Elevated INR, Urinary retention, SUNNY (acute kidney injury) Urinary tract infection Qualifiers: Urinary tract infection type: acute cystitis Hematuria presence: with hematuria Qualified Code(s): N30.01 - Acute cystitis with hematuria Disposition: Admitted As Inpatient Condition: Fair Referrals: Brenda Bearden MD [Primary Care Provider] - Forms: ED Satisfaction Letter Time of Disposition: 21:01 General Adult HPI - General Chief complaint: ED Urogenital-Male Stated complaint: Unable to urinate Time Seen by Provider: 12/25/17 17:04 Source: patient, family Limitations: no limitations Nursing Notes Reviewed: Yes Vital Signs Reviewed: Yes - History of Present Illness HPI Narrative: 77-year-old male presents emergency department with concern for lower abdominal pain, inability to urinate. Patient states that this started Sunday. States that he has had history of BPH. States that he is on Coumadin. Has noted that he has had milk chocolate appearance in his urine. Patient denies any nausea or vomiting. Patient states that the pain has been going to the back. Patient denies any chills. Denies any fever. Pain Scale: 9 - Related Data Home Medications Medication Instructions Recorded Confirmed Aspirin Enteric Coated [Aspirin EC] 81 mg PO DAILY 07/21/17 12/25/17 Latanoprost [Xalatan] 1 drop OP HS 07/21/17 12/25/17 Lisinopril [Zestril] 40 mg PO DAILY 07/21/17 12/25/17 amLODIPine [Norvasc] 2.5 mg PO DAILY 10/09/17 12/25/17 Metoprolol Tartrate [Metoprolol 50 mg PO BID 12/25/17 12/25/17 Tartrate] Warfarin [Coumadin] 3 mg PO WE 12/25/17 12/25/17 Warfarin [Coumadin] 4.5 mg PO SUMOTUTHFRSA 12/25/17 12/25/17 Allergies Allergy/AdvReac Type Severity Reaction Status Date / Time No Known Allergies Allergy Verified 12/25/17 19:49 All systems ED: reviewed and negative except as stated. Review of Systems: As Per HPI Constitutional: Denies: fever Cardiovascular: Denies: chest pain Respiratory: Denies: cough, dyspnea Gastrointestinal: Reports: abdominal pain, nausea. Denies: vomiting Genitourinary: Reports: hematuria, discharge Musculoskeletal: Denies: back pain, neck pain Neurological: Denies: headache Past Medical History - Past Medical History Medical history: Reports: hypertension, other Psychiatric history: Reports: no psych history - Social History Smoking Status: Former smoker Smokeless Tobacco Status: No Alcohol use: Reports: none Drug use: Reports: none Physical Exam - General Limitations: no limitations General appearance: alert, in no apparent distress - Head Head exam: normocephalic - Eye Eye exam: Present: EOMI - ENT ENT exam: normal oropharynx - Neck Neck exam: Present: trachea midline - Chest Chest inspection: Present: symmetric chest wall rise - Respiratory Respiratory exam: Present: normal lung sounds bilaterally. Absent: respiratory distress - Cardiovascular Cardiovascular exam: Present: tachycardia, irregular rhythm - Abdominal Exam Abdominal exam: Present: tenderness. Absent: distention, guarding, rebound - Extremities Exam Extremities exam: Present: full ROM, normal capillary refill Course Vital Signs Temperature 98.3 F 12/25/17 17:04 Pulse Rate 92 12/25/17 17:04 Respiratory Rate 18 12/25/17 17:04 Blood Pressure 132/88 12/25/17 17:04 O2 Sat by Pulse Oximetry 97 12/25/17 17:04 Temperature 98.3 F 12/25/17 17:04 Pulse Rate 107 12/25/17 19:52 Respiratory Rate 16 12/25/17 19:52 Blood Pressure 133/102 12/25/17 19:52 O2 Sat by Pulse Oximetry 97 12/25/17 19:52 Oxygen Delivery Oxygen Delivery Room Air Procedures - Ultrasound-Other Narrative: ED ultrasound was obtained. This revealed over 2000 mL of fluid within the bladder. Debris was also noted within the bladder as well. Medical Decision Making - [facility] Narrative Medical decision making narrative: 77-year-old male presents emergency department with concern for acute urinary retention. ED ultrasound reveals 2000 mL of fluid in the bladder. Escobedo catheter was placed. Bladder was evacuated. Urinalysis revealed blood, leukocyte esterase, moderate bacteria. Patient was given a gram of Rocephin IV. After bladder drainage, patient was mildly tachycardic in the 110s with A. fib with RVR. Patient has known A. fib with RVR. Gave patient a liter of fluids. Patient's INR is 3.4. He is on Coumadin. Patient has creatinine of 1.89. This is probably secondary to his obstructive uropathy. Patient was given pain medication control here in the emergency department. I spoken with the hospitalist, who agreed to accept the patient for admission. Patient also agrees as well. Abdomen/Pelvis CT 12/25/17 18:32 IMPRESSION: Marked, diffuse urinary bladder wall thickening may reflect severe cystitis. Consider correlation with urinalysis. There is moderate bilateral hydroureteronephrosis to the level of the ureterovesicular junction, likely related to cystitis. No renal or ureteral calculi. D/ / 12/25/2017 20:01:31 Violetta Bush MD / [email or web address] Interpreting Provider: Violetta Bush MD Vital Signs Temperature 98.3 F 12/25/17 17:04 Pulse Rate 92 12/25/17 17:04 Respiratory Rate 18 12/25/17 17:04 Blood Pressure 132/88 12/25/17 17:04 O2 Sat by Pulse Oximetry 97 12/25/17 17:04 Temperature 98.3 F 12/25/17 17:04 Pulse Rate 107 12/25/17 19:52 Respiratory Rate 16 12/25/17 19:52 Blood Pressure 133/102 12/25/17 19:52 O2 Sat by Pulse Oximetry 97 12/25/17 19:52 Oxygen Delivery Oxygen Delivery Room Air - Lab Data Result diagrams: 12/25/17 18:33 12/25/17 18:33 Lab Results 12/25/17 12/25/17 12/25/17 Range/Units 18:33 18:33 18:33 WBC 5.7 (4.3-11.1) K/mcL RBC 4.66 (4.19-5.50) M/mcL Hgb 15.1 (12.9-16.9) g/dL Hct 43.6 (37.5-50.1) % MCV 93.6 (83.0-100.0) fL MCH 32.4 (28.0-33.3) pg MCHC 34.6 (31.6-35.5) g/dL RDW 14.4 (11.5-14.5) % Plt Count 214 (140-400) K/mcL MPV 9.1 L (9.4-12.4) fL Immature Gran % 0.5 (0-4) % Seg Neutrophils % 50.4 % Lymphocytes % 29.0 % Monocytes % 19.2 % Eosinophils % 0.5 % Basophils % 0.4 % Neutrophils # 2.9 (1.6-8.9) K/mcL Lymphocytes # 1.7 (0.6-4.6) K/mcL Monocytes # 1.1 (0.0-1.3) K/mcL Eosinophils # 0.0 (0.0-0.6) K/mcL Basophils # 0.0 (0.0-0.2) K/mcL Platelet Estimate Normal (Normal) PT 38.7 H (9.4-12.1) Seconds INR 3.4 Sodium 133 L (136-145) mEq/L Potassium 4.2 (3.5-5.1) mEq/L Chloride 102 (98-107) mEq/L Carbon Dioxide 22 L (23-29) mEq/L BUN 45 H (8-23) mg/dL Creatinine 1.89 H (0.70-1.30) mg/dL Est GFR ( Amer) 42 L (> 60) Est GFR (Non-Af Amer) 35 L (> 60) BUN/Creatinine Ratio 24 (6-26) Glucose 117 H (70-105) mg/dL Calculated Osmolality 289 (280-300) Lactic Acid (0.5-2.2) mmol/L Calcium 9.8 (8.6-10.3) mg/dL Total Bilirubin 1.0 (0.3-1.0) mg/dL AST 19 (13-39) Units/L ALT 11 (7-52) Units/L Alkaline Phosphatase 55 (34-104) Units/L Troponin I < 0.03 (< 0.04) ng/mL Serum Total Protein 7.3 (6.4-8.9) g/dL Albumin 3.9 (3.5-5.7) g/dL Globulin 3.4 (2.4-3.5) g/dL Albumin/Globulin Ratio 1.1 (1.1-2.2) Lipase 32 (11-82) Units/L Urine Color (Yellow) Urine Clarity (Clear) Urine pH (5.0-8.0) pH Units Ur Specific Bear (1.010-1.025) Urine Protein (Neg-Trace) mg/dL Urine Glucose (UA) (Normal) mg/dL Urine Ketones (Negative) mg/dL Urine Blood (Negative) Urine Nitrite (Negative) Urine Bilirubin (Negative) Urine Urobilinogen (Normal) mg/dL Ur Leukocyte Esterase (Negative) Urine Microscopic RBC (0-3) per hpf Urine Microscopic WBC (0-3) per hpf Ur Squamous Epith Cells (None-Few) per lpf Urine Bacteria (None-Few) per hpf Hyaline Casts (None-Few) per lpf Ur Culture Indicated? (NO) 12/25/17 12/25/17 Range/Units 18:42 18:52 WBC (4.3-11.1) K/mcL RBC (4.19-5.50) M/mcL Hgb (12.9-16.9) g/dL Hct (37.5-50.1) % MCV (83.0-100.0) fL MCH (28.0-33.3) pg MCHC (31.6-35.5) g/dL RDW (11.5-14.5) % Plt Count (140-400) K/mcL MPV (9.4-12.4) fL Immature Gran % (0-4) % Seg Neutrophils % % Lymphocytes % % Monocytes % % Eosinophils % % Basophils % % Neutrophils # (1.6-8.9) K/mcL Lymphocytes # (0.6-4.6) K/mcL Monocytes # (0.0-1.3) K/mcL Eosinophils # (0.0-0.6) K/mcL Basophils # (0.0-0.2) K/mcL Platelet Estimate (Normal) PT (9.4-12.1) Seconds INR Sodium (136-145) mEq/L Potassium (3.5-5.1) mEq/L Chloride (98-107) mEq/L Carbon Dioxide (23-29) mEq/L BUN (8-23) mg/dL Creatinine (0.70-1.30) mg/dL Est GFR ( Amer) (> 60) Est GFR (Non-Af Amer) (> 60) BUN/Creatinine Ratio (6-26) Glucose (70-105) mg/dL Calculated Osmolality (280-300) Lactic Acid 1.3 (0.5-2.2) mmol/L Calcium (8.6-10.3) mg/dL Total Bilirubin (0.3-1.0) mg/dL AST (13-39) Units/L ALT (7-52) Units/L Alkaline Phosphatase (34-104) Units/L Troponin I (< 0.04) ng/mL Serum Total Protein (6.4-8.9) g/dL Albumin (3.5-5.7) g/dL Globulin (2.4-3.5) g/dL Albumin/Globulin Ratio (1.1-2.2) Lipase (11-82) Units/L Urine Color Red A (Yellow) Urine Clarity Turbid A (Clear) Urine pH 6.0 (5.0-8.0) pH Units Ur Specific Bear 1.013 (1.010-1.025) Urine Protein >=300 H (Neg-Trace) mg/dL Urine Glucose (UA) Normal (Normal) mg/dL Urine Ketones Trace H (Negative) mg/dL Urine Blood Large H (Negative) Urine Nitrite Negative (Negative) Urine Bilirubin Negative (Negative) Urine Urobilinogen Normal (Normal) mg/dL Ur Leukocyte Esterase Large H (Negative) Urine Microscopic RBC TNTC H (0-3) per hpf Urine Microscopic WBC TNTC H (0-3) per hpf Ur Squamous Epith Cells Few (None-Few) per lpf Urine Bacteria Moderate H (None-Few) per hpf Hyaline Casts None Seen (None-Few) per lpf Ur Culture Indicated? YES A (NO) - EKG Data EKG #1 EKG attestation: Yes I reviewed and interpreted this EKG. EKG results narrative: 18:25 Ventricular rate 121 ms, AL interval no P waves, QRS duration 84 months of, QT 287 ms, QTC 359 ms, axis deviation. Age of fibrillation with RVR. Rate is [address] changes on this EKG.
[2017-12-25] MEDS ORDERED: Isovue-370 500 ML INFUS..BTL IV ONE (18:30)
[2017-12-25 18:47] LABS: Basophils % 0.4 %; Eosinophils % 0.5 %; Hematocrit 43.6 % (37.5-50.1); Hemoglobin 15.1 g/dL (12.9-16.9); Immature Granulocytes % 0.5 % (0-4); Lymphocytes # 1.7 K/mcL (0.6-4.6); Mean Corpuscular HGB Conc 34.6 g/dL (31.6-35.5); Mean Corpuscular Hemoglobin 32.4 pg (28.0-33.3); Mean Corpuscular Volume 93.6 fL (83.0-100.0); Mean Platelet Volume 9.1 fL (9.4-12.4); Monocytes # 1.1 K/mcL (0.0-1.3); Monocytes % 19.2 %; Neutrophils # 2.9 K/mcL (1.6-8.9); Platelet Count 214 K/mcL (140-400); Red Blood Count 4.66 M/mcL (4.19-5.50); Red Cell Distribution Width 14.4 % (11.5-14.5); Segmented Neutrophils % 50.4 %
[2017-12-25 18:51] LABS: INR 3.4; Prothrombin Time 38.7 Seconds (9.4-12.1)
[2017-12-25 18:53] LABS: Platelet Estimate Normal (Normal)
[2017-12-25 18:53] LABS: Bilirubin,Urine Negative (Negative); Blood,Urine Large (Negative); Clarity,Urine Turbid (Clear); Color,Urine Red (Yellow); Glucose,Urine (UA) Normal (Normal); Ketones,Urine Trace mg/dL (Negative); Leukocyte Esterase,Urine Large (Negative); Nitrite,Urine Negative (Negative); Protein,Urine >=300 mg/dL (Neg-Trace); Specific Gravity,Urine 1.013 (1.010-1.025); Urobilinogen,Urine Normal (Normal)
[2017-12-25 18:55] LABS: Bacteria,Urine Moderate per hpf (None-Few); Hyaline Casts,Urine None Seen per lpf (None-Few); RBC,Urine TNTC per hpf (0-3); Squamous Epithelial Cell,Urine Few per lpf (None-Few); WBC,Urine TNTC per hpf (0-3)
[2017-12-25 19:07] LABS: Alanine Aminotransferase 11 Units/L (7-52); Albumin 3.9 g/dL (3.5-5.7); Albumin/Globulin Ratio 1.1 (1.1-2.2); Alkaline Phosphatase 55 Units/L (34-104); Aspartate Amino Transferase 19 Units/L (13-39); BUN/Creatinine Ratio 24 (6-26); Blood Urea Nitrogen 45 mg/dL (8-23); Calcium 9.8 mg/dL (8.6-10.3); Carbon Dioxide 22 mEq/L (23-29); Chloride 102 mEq/L (98-107); Globulin 3.4 g/dL (2.4-3.5); Glucose 117 mg/dL (70-105); Lipase 32 Units/L (11-82); Osmolality,Calculated 289 (280-300); Potassium 4.2 mEq/L (3.5-5.1); Sodium 133 mEq/L (136-145); Total Protein 7.3 g/dL (6.4-8.9); eGFR For Non-African Americans 35 (> 60)
[2017-12-25] MEDS ORDERED: cefTRIAXone 1,000 MG in Water for inj. (sterile) 20 ML 10 ML IVP ONE (19:07)
[2017-12-25 19:08] LABS: Troponin I < 0.03 ng/mL (< 0.04)
[2017-12-25] MEDS ORDERED: 0.9 % Sodium Chloride 1,000 ML IVC ONE (19:51)
--- NOTE | 2017-12-25 20:14 | Emergency Department Note ---
Disposition Clinical Impression: Urinary retention, SUNNY (acute kidney injury) Disposition: Admitted As Inpatient Referrals: Brenda Bearden MD [Primary Care Provider] - Forms: ED Satisfaction Letter Time of Disposition: 20:15 General Adult HPI - General Chief complaint: ED Urogenital-Male Stated complaint: Unable to urinate Time Seen by Provider: 12/25/17 17:04 Source: patient, family Limitations: no limitations - History of Present Illness Pain Scale: 0 - Related Data Home Medications Medication Instructions Recorded Confirmed Aspirin Enteric Coated [Aspirin EC] 81 mg PO DAILY 07/21/17 12/25/17 Latanoprost [Xalatan] 1 drop OP HS 07/21/17 12/25/17 Lisinopril [Zestril] 40 mg PO DAILY 07/21/17 12/25/17 amLODIPine [Norvasc] 2.5 mg PO DAILY 10/09/17 12/25/17 Metoprolol Tartrate [Metoprolol 50 mg PO BID 12/25/17 12/25/17 Tartrate] Warfarin [Coumadin] 3 mg PO WE 12/25/17 12/25/17 Warfarin [Coumadin] 4.5 mg PO SUMOTUTHFRSA 12/25/17 12/25/17 Allergies Allergy/AdvReac Type Severity Reaction Status Date / Time No Known Allergies Allergy Verified 12/25/17 19:49 Past Medical History - Past Medical History Medical history: Reports: hypertension, other Psychiatric history: Reports: no psych history - Social History Smoking Status: Former smoker Smokeless Tobacco Status: No Alcohol use: Reports: none Drug use: Reports: none Physical Exam - General Limitations: no limitations General appearance: alert, in no apparent distress Course Vital Signs Temperature 98.3 F 12/25/17 17:04 Pulse Rate 92 12/25/17 17:04 Respiratory Rate 18 12/25/17 17:04 Blood Pressure 132/88 12/25/17 17:04 O2 Sat by Pulse Oximetry 97 12/25/17 17:04 Temperature 98.3 F 12/25/17 17:04 Pulse Rate 107 12/25/17 19:52 Respiratory Rate 16 12/25/17 19:52 Blood Pressure 133/102 12/25/17 19:52 O2 Sat by Pulse Oximetry 97 12/25/17 19:52 Oxygen Delivery Oxygen Delivery Room Air Medical Decision Making - Lab Data Result diagrams: 12/25/17 18:33 12/25/17 18:33 Lab Results 12/25/17 12/25/17 12/25/17 Range/Units 18:33 18:33 18:33 WBC 5.7 (4.3-11.1) K/mcL RBC 4.66 (4.19-5.50) M/mcL Hgb 15.1 (12.9-16.9) g/dL Hct 43.6 (37.5-50.1) % MCV 93.6 (83.0-100.0) fL MCH 32.4 (28.0-33.3) pg MCHC 34.6 (31.6-35.5) g/dL RDW 14.4 (11.5-14.5) % Plt Count 214 (140-400) K/mcL MPV 9.1 L (9.4-12.4) fL Immature Gran % 0.5 (0-4) % Seg Neutrophils % 50.4 % Lymphocytes % 29.0 % Monocytes % 19.2 % Eosinophils % 0.5 % Basophils % 0.4 % Neutrophils # 2.9 (1.6-8.9) K/mcL Lymphocytes # 1.7 (0.6-4.6) K/mcL Monocytes # 1.1 (0.0-1.3) K/mcL Eosinophils # 0.0 (0.0-0.6) K/mcL Basophils # 0.0 (0.0-0.2) K/mcL Platelet Estimate Normal (Normal) PT 38.7 H (9.4-12.1) Seconds INR 3.4 Sodium 133 L (136-145) mEq/L Potassium 4.2 (3.5-5.1) mEq/L Chloride 102 (98-107) mEq/L Carbon Dioxide 22 L (23-29) mEq/L BUN 45 H (8-23) mg/dL Creatinine 1.89 H (0.70-1.30) mg/dL Est GFR ( Amer) 42 L (> 60) Est GFR (Non-Af Amer) 35 L (> 60) BUN/Creatinine Ratio 24 (6-26) Glucose 117 H (70-105) mg/dL Calculated Osmolality 289 (280-300) Lactic Acid (0.5-2.2) mmol/L Calcium 9.8 (8.6-10.3) mg/dL Total Bilirubin 1.0 (0.3-1.0) mg/dL AST 19 (13-39) Units/L ALT 11 (7-52) Units/L Alkaline Phosphatase 55 (34-104) Units/L Troponin I < 0.03 (< 0.04) ng/mL Serum Total Protein 7.3 (6.4-8.9) g/dL Albumin 3.9 (3.5-5.7) g/dL Globulin 3.4 (2.4-3.5) g/dL Albumin/Globulin Ratio 1.1 (1.1-2.2) Lipase 32 (11-82) Units/L Urine Color (Yellow) Urine Clarity (Clear) Urine pH (5.0-8.0) pH Units Ur Specific Dickey (1.010-1.025) Urine Protein (Neg-Trace) mg/dL Urine Glucose (UA) (Normal) mg/dL Urine Ketones (Negative) mg/dL Urine Blood (Negative) Urine Nitrite (Negative) Urine Bilirubin (Negative) Urine Urobilinogen (Normal) mg/dL Ur Leukocyte Esterase (Negative) Urine Microscopic RBC (0-3) per hpf Urine Microscopic WBC (0-3) per hpf Ur Squamous Epith Cells (None-Few) per lpf Urine Bacteria (None-Few) per hpf Hyaline Casts (None-Few) per lpf Ur Culture Indicated? (NO) 12/25/17 12/25/17 Range/Units 18:42 18:52 WBC (4.3-11.1) K/mcL RBC (4.19-5.50) M/mcL Hgb (12.9-16.9) g/dL Hct (37.5-50.1) % MCV (83.0-100.0) fL MCH (28.0-33.3) pg MCHC (31.6-35.5) g/dL RDW (11.5-14.5) % Plt Count (140-400) K/mcL MPV (9.4-12.4) fL Immature Gran % (0-4) % Seg Neutrophils % % Lymphocytes % % Monocytes % % Eosinophils % % Basophils % % Neutrophils # (1.6-8.9) K/mcL Lymphocytes # (0.6-4.6) K/mcL Monocytes # (0.0-1.3) K/mcL Eosinophils # (0.0-0.6) K/mcL Basophils # (0.0-0.2) K/mcL Platelet Estimate (Normal) PT (9.4-12.1) Seconds INR Sodium (136-145) mEq/L Potassium (3.5-5.1) mEq/L Chloride (98-107) mEq/L Carbon Dioxide (23-29) mEq/L BUN (8-23) mg/dL Creatinine (0.70-1.30) mg/dL Est GFR ( Amer) (> 60) Est GFR (Non-Af Amer) (> 60) BUN/Creatinine Ratio (6-26) Glucose (70-105) mg/dL Calculated Osmolality (280-300) Lactic Acid 1.3 (0.5-2.2) mmol/L Calcium (8.6-10.3) mg/dL Total Bilirubin (0.3-1.0) mg/dL AST (13-39) Units/L ALT (7-52) Units/L Alkaline Phosphatase (34-104) Units/L Troponin I (< 0.04) ng/mL Serum Total Protein (6.4-8.9) g/dL Albumin (3.5-5.7) g/dL Globulin (2.4-3.5) g/dL Albumin/Globulin Ratio (1.1-2.2) Lipase (11-82) Units/L Urine Color Red A (Yellow) Urine Clarity Turbid A (Clear) Urine pH 6.0 (5.0-8.0) pH Units Ur Specific Dickey 1.013 (1.010-1.025) Urine Protein >=300 H (Neg-Trace) mg/dL Urine Glucose (UA) Normal (Normal) mg/dL Urine Ketones Trace H (Negative) mg/dL Urine Blood Large H (Negative) Urine Nitrite Negative (Negative) Urine Bilirubin Negative (Negative) Urine Urobilinogen Normal (Normal) mg/dL Ur Leukocyte Esterase Large H (Negative) Urine Microscopic RBC TNTC H (0-3) per hpf Urine Microscopic WBC TNTC H (0-3) per hpf Ur Squamous Epith Cells Few (None-Few) per lpf Urine Bacteria Moderate H (None-Few) per hpf Hyaline Casts None Seen (None-Few) per lpf Ur Culture Indicated? YES A (NO) Attestation Statement - Attestation Attestation: I examined this patient and my medical decision-making was reviewed with the Resident Physician. I agree with the documented findings, disposition and treatment plan as described except to the extent set forth below. 77 year old male prsent o the ED with complaints of urinary retention and states that this has been going on for a few days . on US it appears that he has 2L in his bladder and that it is infected and postive for blood. PAtient has a history of being on couadin with a INR Of 3.4 although he is not actively bleeding from any site on CT scan. scan shows severe cystitis and hydro on the right as a result. Kenney also has an SUNNY. WE will admit to medicine, and have placed patient with samaniego for relief.
--- NOTE | 2017-12-25 21:15 | Internal Med History&Physical ---
<Marquez Carrasco - Last Filed: 12/25/17 21:37> Date of Encounter: 12/25/17 Time of Encounter: 21:11 Internal Medicine - H&P: HPI Chief complaint: Abdominal pain, urinary retention Admitted From: Emergency Dept Plans for Post Hospital Care: Home History of present illness: Mr. Whitmore is a 77 year old male with past medical history of hypertension, BPH, atrial fibrillation on anticoagulation with warfarin presents to emergency room with complaint of abdominal pain urine retention 3 days. He states that pain was gradual onset and located in the suprapubic region without radiation. He has also noticed a generalized swelling in the lower abdomen as well. He has never had any symptoms in the past. Describes the pain as a swelling pain and is also located in bilateral groin. He states he has never had a problem with urinary retention in the past, however his son who is at bedside states that he has not been able to force urine ever since his bilateral hernia surgery approximately 20 years ago. He denies any social symptoms of fevers, chills, chest pain, shortness of breath, nausea, vomiting, change in bowel habits, flank pain. The past 3 days, he states his only able to dribble when attempting to urinate and he has also noticed a dark color to his urine. He does not follow with a urologist. In the emergency department, vital signs are significant for tachycardia at 107. Laboratory results are significant for normal WBC count of 5.7, B1/ creatinine 1.89 which is elevated from baseline creatinine of 0.7, elevated INR of 3.4. CT of the abdomen was obtained and showed marked bladder wall thickening, moderate bilateral hydroureteronephrosis extending to the UVJ. He did not get a Escobedo catheter with 2 L of dark urine produced. Urinalysis was suggestive of infection and also noted to be bloody. Patient states that since Escobedo catheter has been placed his symptoms have completely resolved. Past medical history as above Past surgical history includes bilateral hernia repair Social history: Denies tobacco use, alcohol, drug use Past Med Surg Social Fam HX - Past Medical History Medical history: hypertension, other Additional medical history: [employer]-wears bilat hearing aides Psychiatric history: no psych history - Social History Smoking Status: Former smoker Smokeless Tobacco Status: No Alcohol use: none Drug use: none Internal Medicine - H&P: Meds Aspirin Enteric Coated [Aspirin EC] 81 mg PO DAILY 07/21/17 [History] Latanoprost [Xalatan] 1 drop OP HS 07/21/17 [History] Lisinopril [Zestril] 40 mg PO DAILY 07/21/17 [History] amLODIPine [Norvasc] 2.5 mg PO DAILY 10/09/17 [History] Metoprolol Tartrate [Metoprolol Tartrate] 50 mg PO BID 12/25/17 [History] Warfarin [Coumadin] 3 mg PO WE 12/25/17 [History] Warfarin [Coumadin] 4.5 mg PO SUMOTUTHFRSA 12/25/17 [History] 3 Allergy/AdvReac Type Severity Reaction Status Date / Time No Known Allergies Allergy Verified 12/25/17 19:49 All Systems PM: A 10-system review of systems was performed and is negative for pertinent findings except as documented above in the HPI. - Constitutional Constitutional: no anorexia, no chills, no fatigue, no fever(s), no lethargy, no weakness - Cardiovascular Cardiovascular ROS IM: no chest pain, no dyspnea, no dyspnea on exertion, no edema - Respiratory Respiratory: no cough, no dyspnea, no dyspnea on exertion - Gastrointestinal Gastrointestinal: abdominal pain, no change in bowel habits, no change in stool character, no constipation, no cramping, no diarrhea, no loose stools, no nausea , no vomiting - Genitourinary Genitourinary ROS male: difficulty urinating, hematuria, post void dribbling, no dysuria, no flank pain, no urinary frequency, no urinary hesitancy, no urinary incontinence, no urinary urgency - Neurological Neurological ROS: no numbness, no tingling - Constitutional Vitals: Temp Pulse Resp BP Pulse Ox 98.3 F 114 16 125/91 96 12/25/17 17:04 12/25/17 20:59 12/25/17 20:59 12/25/17 20:59 12/25/17 20:59 Exam: Gen.: Vitals noted. No acute distress. AAOx3, resting comfortably in bed HEENT: PERRL/EOMI, oropharynx clear, Normocephalic, atraumatic, MMM Cardiac: Irregular rhythm, mildly tachycardic, no murmur, +S1/S2 Pulmonary: CTA bilaterally, no wheezes, rales or rhonchi, equal chest expansion Abdomen: soft, mildly tender to palpation suprapubic region, BS noted, no guarding, no rebound. Back: Negative bilateral flank tenderness Extremities: no BLE edema, nontender calf, no cyanosis or clubbing Neuro: A&Ox3, moves all extremities, no focal deficits Psych: Appropriate mood and behavior Internal Med - H&P Results - Labs CBC & Chem 7: 12/25/17 18:33 12/25/17 18:33 - Assessment and plan (1) Urinary tract infection Current Visit: Yes Status: Acute Assessment and plan: - Acute urinary tract infection in the setting of urinary retention as well as CT scan findings suggestive of hydroureteronephrosis. - No evidence of pyelonephritis including flank tenderness, CT perinephric stranding, systemic symptoms. - Patient is afebrile, no WBC elevation and nonseptic - Started of Rocephin in the emergency room - SUNNY on presentation however this is likely related to urinary retention - Urine cultures collected and pending. No previous cultures chart review Plan - Continue rocephin 1g q24 hours - Follow up on urine cultures - Fluids at 75/hr x1 bag. - Daily labs Qualifiers: Urinary tract infection type: acute cystitis Hematuria presence: with hematuria Qualified Code(s): N30.01 - Acute cystitis with hematuria (2) Atrial fibrillation with RVR Current Visit: Yes Status: Acute Assessment and plan: - Permanent atrial fibrillation anticoagulated with Coumadin - RVR likely secondary to UTI, pain. Mildly elevated at 107 - Patient is asymptomatic - CHADVASC score 3 Plan - We will treat underlying illness as above - We will hold Coumadin in the setting of hematuria and elevated INR - Continue home BB (3) Hypertension Current Visit: Yes Status: Chronic Assessment and plan: - Moderately Well-controlled at 133/102 presentation - Continue home medications Qualifiers: Hypertension type: essential hypertension Qualified Code(s): I10 - Essential (primary) hypertension (4) SUNNY (acute kidney injury) Current Visit: Yes Status: Acute Assessment and plan: - SUNNY likely secondary to acute urinary retention - BUN/Cr of 45/1.89, baseline creatinine appears to be around 0.7 - Fully catheter placed emergency room with 2 L of urine output - Hematuria present however this may be related to acute cystitis Plan - Continue Escobedo catheter - Monitor kidney function after relief of postobstructive nephropathy - Avoid nephrotoxic agents (5) Acute urinary retention Current Visit: Yes Status: Acute Assessment and plan: - Likely related to BPH - Escobedo catheter placement emergency department - Consult urology, appreciate recommendations (6) Elevated INR Current Visit: Yes Status: Acute Assessment and plan: - INR of 3.4 on presentation - Patient and son both report compliance with Coumadin clinic as outpatient - Anticoagulated for atrial fibrillation as above - Hematuria on exam however H/H is stable at 15.1/43.6 Plan - Hold Coumadin the setting of acute hematuria and elevated INR - Continue to monitor for further episodes of bleeding the setting of acute cystitis (7) Hematuria Current Visit: Yes Status: Acute Assessment and plan: - Gross hematuria likely related to acute cystitis - INR elevated at 3.4, patient does take daily Coumadin for A. fib - H/H stable at 15.1/43.6 - We will continue to monitor at this time Qualifiers: Hematuria type: gross Qualified Code(s): R31.0 - Gross hematuria (8) DVT prophylaxis Current Visit: Yes Status: Acute Assessment and plan: INR elevated at 3.4 - Time Spent With Patient Total time spent is greater than 50% in coordination of care (as documented) at patient's floor/unit and/or counseling patient: <Syl Veliz - Last Filed: 12/25/17 23:01> Date of Encounter: 12/25/17 Internal Medicine - H&P: HPI History of present illness: Mr. Whitmore is a 77 year old male All Systems PM: A 10-system review of systems was performed and is negative for pertinent findings except as documented above in the HPI. - Constitutional Vitals: Temp Pulse Resp BP Pulse Ox 99.2 F 103 15 155/80 97 12/25/17 21:52 12/25/17 21:52 12/25/17 21:52 12/25/17 21:52 12/25/17 21:52 Internal Med - H&P Results - Labs CBC & Chem 7: 12/25/17 18:33 12/25/17 18:33 - Attending Attestation The patient was seen and examined by me. Marcelino Whitmore is a 77-year-old male who denies a history of prostate issues resenting with an acute urinary retention and found to have 2 L of urine in his bladder. This resolved with Escobedo catheterization with notable hematuria seen and resolution of abdominal distention and pain. He reports having urinary issues since having hernia surgery many years ago. He acknowledges being checked for prostate problems in the past with a biopsy and was reportedly negative. His son at bedside reports a long-standing history of urinary dribbling. Physical exam is remarkable for an elderly white male lying comfortably in bed in no acute distress who answers questions coherently. Dry skin and mucous membranes notable, abdomen soft and nontender to palpation, Escobedo catheter in place with dark urine noted in collecting back. He has a urinalysis concerning for infection and CT imaging suggestive of cystitis. We will continue 1 g ceftriaxone daily pending urine cultures. IV fluids for rehydration in the setting of postobstructive acute kidney injury. He will require urology evaluation in the setting of bilateral hydronephrosis. DVT prophylaxis with subcutaneous heparin. Rest of management per resident's note. - Time Spent With Patient Total time spent is greater than 50% in coordination of care (as documented) at patient's floor/unit and/or counseling patient:
[2017-12-25] MEDS ORDERED: Naloxone 0.4 MG/ML INJ IVP PRN (21:27)
[2017-12-25] MEDS ORDERED: 0.9 % Sodium Chloride 1,000 ML IVC SCH (21:30)
[2017-12-25] MEDS: 0.9 % Sodium Chloride 1,000 ML IVC SCH (23:50)
[2017-12-26 05:51] LABS: Basophils % 0.5 %; Eosinophils # 0.1 K/mcL (0.0-0.6); Eosinophils % 2.1 %; Hematocrit 35.5 % (37.5-50.1); Immature Granulocytes % 0.8 % (0-4); Lymphocytes # 1.3 K/mcL (0.6-4.6); Lymphocytes % 34.1 %; Mean Corpuscular HGB Conc 33.8 g/dL (31.6-35.5); Mean Corpuscular Hemoglobin 31.4 pg (28.0-33.3); Mean Corpuscular Volume 92.9 fL (83.0-100.0); Mean Platelet Volume 9.2 fL (9.4-12.4); Monocytes # 0.7 K/mcL (0.0-1.3); Monocytes % 17.8 %; Neutrophils # 1.7 K/mcL (1.6-8.9); Platelet Count 174 K/mcL (140-400); Red Blood Count 3.82 M/mcL (4.19-5.50); Red Cell Distribution Width 14.6 % (11.5-14.5); Segmented Neutrophils % 44.7 %
[2017-12-26 06:09] LABS: BUN/Creatinine Ratio 26 (6-26); Blood Urea Nitrogen 26 mg/dL (8-23); Calcium 8.6 mg/dL (8.6-10.3); Carbon Dioxide 22 mEq/L (23-29); Chloride 105 mEq/L (98-107); Glucose 106 mg/dL (70-105); Osmolality,Calculated 281 (280-300); Potassium 3.5 mEq/L (3.5-5.1); Sodium 133 mEq/L (136-145); eGFR For Non-African Americans > 60 (> 60)
[2017-12-26] MEDS: Aspirin Enteric Coated 81 MG Tablet PO SCH (07:57)
[2017-12-26] MEDS: amLODIPine 5 MG TABLET PO SCH (07:57)
[2017-12-26] MEDS: cefTRIAXone 1,000 MG in Water for inj. (sterile) 20 ML 10 ML IVP SCH (08:01)
[2017-12-26 08:40] LABS: INR 3.2; Prothrombin Time 35.9 Seconds (9.4-12.1)
--- NOTE | 2017-12-26 09:34 | Internal Med Progress Note ---
Hospitalist Progress Note - Encounter Date of Encounter: 12/26/17 Time of Encounter: 09:32 - Subjective Interval History: Abdominal pain better. Distal hematuria. Family at bedside. Reviewed the lab. Denies fever chills nausea vomiting headache dizziness chest pain shortness of breath diarrhea or constipation. - Exam Vitals: Temp Pulse Resp BP Pulse Ox 98.7 F 89 14 124/78 96 12/26/17 07:23 12/26/17 07:23 12/26/17 07:23 12/26/17 07:23 12/26/17 08:03 Exam: General appearance: No acute distress, A&O X 3, hard of hearing, son at bedside , taking the first Head exam: Atraumatic Eye exam: EOMI, PERRLA ENT exam: Moist oral mucosa Neck nontender, supple Respiratory exam: Clear to auscultation bilaterally Cardiovascular exam: Regular rate and rhythm, no systolic murmur Abdominal exam: Soft, minimally tender to suprapubic region,, nondistended, positive bowel sounds Extremities exam: No calf tenderness, no pedal edema Present: Skin-warm, dry, intact Neurological exam: Grossly CN II-XII intact, no focal deficits. No facial droop. - Assessment and Plan (1) Acute urinary retention Current Visit: Yes Status: Acute Assessment and Plan: - Obstructive uropathy with bilateral hydroureter or nephrosis. Consulted urologists. Continue Escobedo catheter with a strict I&O's. (2) Atrial fibrillation with RVR Current Visit: Yes Status: Acute Assessment and Plan: Normal grade but is still A. fib rhythm. On Coumadin with INR 3.2. Consulted pharmacy to manage Coumadin. Patient has hematuria with trending down hemoglobin therefore monitor CBC and hold Coumadin at present. Continue beta cherelle for rate control. - CHADVASC score 3 (3) SUNNY (acute kidney injury) Current Visit: Yes Status: Acute Assessment and Plan: Normal creatinine level now. Continue IV fluid with a strict I&O's. Avoid nephrotoxic drug. Most likely due to postop obstructive uropathy. (4) Elevated INR Current Visit: Yes Status: Acute Assessment and Plan: - Trending now INR but is still supratherapeutic. Pharmacy on board (5) Hypertension Current Visit: Yes Status: Chronic Assessment and Plan: -Well-controlled continue to monitor. Continue home medicine (6) Urinary tract infection Current Visit: Yes Status: Acute Assessment and Plan: - Acute urinary tract infection in the setting of urinary retention as well as CT scan findings suggestive of hydroureteronephrosis. - No evidence of pyelonephritis including flank tenderness, CT perinephric stranding, systemic symptoms. - Patient is afebrile, no WBC elevation and nonseptic. Continue Rocephin as a started in the ER. Continue IV fluid. Follow urine culture report - (7) Hematuria Current Visit: Yes Status: Acute Assessment and Plan: - Gross hematuria likely related to acute cystitis in the context of anticoagulation therapy for A. fib. Consulted urologists. (8) DVT prophylaxis Current Visit: Yes Status: Acute Assessment and Plan: On Coumadin - Time Spent with Patient Total time spent is greater than 50% in coordination of care (as documented) at patient's floor/unit and/or counseling patient: 25 - 35 minutes Internal Medicine: Result - Labs CBC & Chem 7: 12/26/17 05:24 12/26/17 05:24 Labs: Short CBC 12/26/17 Range/Units 05:24 WBC 3.9 L (4.3-11.1) K/mcL Hgb 12.0 L D (12.9-16.9) g/dL Hct 35.5 L (37.5-50.1) % Plt Count 174 (140-400) K/mcL Neutrophils # 1.7 (1.6-8.9) K/mcL BMP 12/26/17 05:24 Sodium 133 L Potassium 3.5 Chloride 105 Carbon Dioxide 22 L BUN 26 H Creatinine 1.01 Glucose 106 H Calcium 8.6 - ABG Interpretation ABG results: PT/INR, D-dimer PT 35.9 Seconds (9.4-12.1) H 12/26/17 08:13 Consult Discharge Plan - Plan Referrals: Brenda Bearden MD [Primary Care Provider] - (5) Hypertension Qualifiers: Hypertension type: essential hypertension Qualified Code(s): I10 - Essential (primary) hypertension (6) Urinary tract infection Qualifiers: Urinary tract infection type: acute cystitis Hematuria presence: with hematuria Qualified Code(s): N30.01 - Acute cystitis with hematuria (7) Hematuria Qualifiers: Hematuria type: gross Qualified Code(s): R31.0 - Gross hematuria
--- NOTE | 2017-12-26 10:59 | Urology - Consult Note ---
Date of Encounter: 12/26/17 Time of Encounter: 10:57 - Assessment and Plan (1) SUNNY (acute kidney injury) Current Visit: Yes Status: Acute Assessment and plan: Patient's serum creatinine has improved almost to normal just overnight with IV fluids and catheter drainage. Patient will need to keep catheter in place. (2) Acute urinary retention Current Visit: Yes Status: Acute Assessment and plan: Patient had significant urinary retention requiring catheter drainage. Patient will need to keep the catheter in place. Patient CT scan revealed significant trilobar prosthetic enlargement as well as significantly thickened bladder wall consistent with chronic obstruction. (3) Hematuria Current Visit: Yes Status: Acute Assessment and plan: Patient's hematuria appears to have resolved. He still has some debris within his catheter tubing which is expected after significant urinary retention. Keep catheter drainage. Qualifiers: Hematuria type: gross Qualified Code(s): R31.0 - Gross hematuria (4) Bilateral hydronephrosis Current Visit: Yes Status: Acute Assessment and plan: This is likely secondary to distal obstruction from prostatic enlargement. Will resolve with catheter drainage. Urology CN:PEDRO Consult date: 12/26/17 Reason for consult Urology: Other (Urinary retention with hydronephrosis) Requesting physician: Kimberley Limon History of present illness: Marcelino is a 77-year-old male who is had difficulty voiding for the past few weeks. This culminated to where the patient was unable to void and came to the emergency department last night. Patient had a catheter placed where 2 L of urine was drained. Patient did have a CT scan which revealed bilateral hydronephrosis. Patient felt immediate relief with catheter placement. Patient states that he has had some increasing nocturia and a weak urinary stream over the past few months. Patient has never been evaluated by urologist before. Patient's serum creatinine was initially elevated but has decreased down to normal just with IV hydration as well as catheter drainage. Patient denies any nausea or vomiting. Urinalysis was consistent with possible UTI. Awaiting urine culture results. Past Med Surg Social Fam HX - Past Medical History Medical history: atrial fibrillation, hypertension, other Additional medical history: [employer]-wears bilat hearing aides Psychiatric history: no psych history - Past Surgical History Surgical History: herniorrhaphy Additional surgical history: 1992-double hernia - Social History Smoking Status: Former smoker Smokeless Tobacco Status: No Alcohol use: none Drug use: none - Family History Father History Unknown: Yes (Patient denies any significant family history) Medications and Allergies Aspirin Enteric Coated [Aspirin EC] 81 mg PO DAILY 07/21/17 [History] Latanoprost [Xalatan] 1 drop OP HS 07/21/17 [History] Lisinopril [Zestril] 40 mg PO DAILY 07/21/17 [History] amLODIPine [Norvasc] 2.5 mg PO DAILY 10/09/17 [History] Metoprolol Tartrate [Metoprolol Tartrate] 50 mg PO BID 12/25/17 [History] Warfarin [Coumadin] 3 mg PO TU 12/25/17 [History] Warfarin [Coumadin] 4.5 mg PO SUMOWETHFRSA 12/25/17 [History] 3 Allergy/AdvReac Type Severity Reaction Status Date / Time No Known Allergies Allergy Verified 12/25/17 19:49 Review of Systems - Constitutional no chills, no fever(s) - EENT Nose, mouth and throat: no dizziness, no sore throat - Cardiovascular no chest pain, no dyspnea - Respiratory no cough, no dyspnea - Gastrointestinal abdominal pain, no nausea, no vomiting - Genitourinary nocturia, no hematuria - Musculoskeletal no back pain, no muscle weakness - Integumentary no erythema, no swelling - Neurological no confusion, no syncope - Psychiatric no anxiety, no confusion - Hematologic/Lymphatic no easy bleeding, no lymphadenopathy - Allergic/Immunologic no wheezing Exam Initial Vital Signs Temp Pulse Resp BP Pulse Ox 98.3 F 92 18 132/88 97 12/25/17 17:04 12/25/17 17:04 12/25/17 17:04 12/25/17 17:04 12/25/17 17:04 General/Neuological: alert and oriented x 3 Eyes: normal pupils, non-icteric Neck: no lymphadenopathy noted, supple to touch Cardiovascular: RRR, no murmurs Respiratory: normal respiratory effort, clear bilaterally ABD: soft, nontender, no masses palpated, good bowel sounds Back: no pain on percussion bilaterally : normal phallus, with catheter in place draining clear urine with some debris within the tubing. Normal scrotum normal testicles, normal perineum Skin: no rashes noted Musculoskeletal: normal gait, FROM Urology Results - Labs 12/26/17 05:24 12/26/17 05:24 Abnormal lab results WBC 3.9 K/mcL (4.3-11.1) L 12/26/17 05:24 RBC 3.82 M/mcL (4.19-5.50) L 12/26/17 05:24 Hgb 12.0 g/dL (12.9-16.9) L D 12/26/17 05:24 Hct 35.5 % (37.5-50.1) L 12/26/17 05:24 RDW 14.6 % (11.5-14.5) H 12/26/17 05:24 MPV 9.2 fL (9.4-12.4) L 12/26/17 05:24 PT 35.9 Seconds (9.4-12.1) H 12/26/17 08:13 Sodium 133 mEq/L (136-145) L 12/26/17 05:24 Carbon Dioxide 22 mEq/L (23-29) L 12/26/17 05:24 BUN 26 mg/dL (8-23) H 12/26/17 05:24 Glucose 106 mg/dL (70-105) H 12/26/17 05:24 Urine Color Red (Yellow) A 12/25/17 18:42 Urine Clarity Turbid (Clear) A 12/25/17 18:42 Urine Protein >=300 mg/dL (Neg-Trace) H 12/25/17 18:42 Urine Ketones Trace mg/dL (Negative) H 12/25/17 18:42 Urine Blood Large (Negative) H 12/25/17 18:42 Ur Leukocyte Esterase Large (Negative) H 12/25/17 18:42 Urine Microscopic RBC TNTC per hpf (0-3) H 12/25/17 18:42 Urine Microscopic WBC TNTC per hpf (0-3) H 12/25/17 18:42 Urine Bacteria Moderate per hpf (None-Few) H 12/25/17 18:42 Ur Culture Indicated? YES (NO) A 12/25/17 18:42 Diabetes panel 12/26/17 Range/Units 05:24 Sodium 133 L (136-145) mEq/L Potassium 3.5 (3.5-5.1) mEq/L Chloride 105 (98-107) mEq/L Carbon Dioxide 22 L (23-29) mEq/L BUN 26 H (8-23) mg/dL Creatinine 1.01 (0.70-1.30) mg/dL Glucose 106 H (70-105) mg/dL Calcium 8.6 (8.6-10.3) mg/dL Calcium panel 12/26/17 Range/Units 05:24 Calcium 8.6 (8.6-10.3) mg/dL Pituitary panel 12/26/17 Range/Units 05:24 Sodium 133 L (136-145) mEq/L Potassium 3.5 (3.5-5.1) mEq/L Chloride 105 (98-107) mEq/L Carbon Dioxide 22 L (23-29) mEq/L BUN 26 H (8-23) mg/dL Creatinine 1.01 (0.70-1.30) mg/dL Glucose 106 H (70-105) mg/dL Calcium 8.6 (8.6-10.3) mg/dL Adrenal panel 12/26/17 Range/Units 05:24 Sodium 133 L (136-145) mEq/L Potassium 3.5 (3.5-5.1) mEq/L Chloride 105 (98-107) mEq/L Carbon Dioxide 22 L (23-29) mEq/L BUN 26 H (8-23) mg/dL Creatinine 1.01 (0.70-1.30) mg/dL Glucose 106 H (70-105) mg/dL Calcium 8.6 (8.6-10.3) mg/dL All other labs normal. - Imaging CT scan - abdomen: image reviewed CT scan - pelvis: image reviewed Consult Discharge Plan - Plan Referrals: Brenda Bearden MD [Primary Care Provider] -
[2017-12-26] MEDS: 0.9 % Sodium Chloride 1,000 ML IVC SCH (14:02)
[2017-12-26] MEDS ORDERED: Warfarin perPT PO PRN (18:00)
[2017-12-26] MEDS ORDERED: *HR* Warfarin 4 MG TABLET PO ONE (18:00)
--- NOTE | 2017-12-26 20:25 | Electrocardiograph Report ---
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
[2017-12-26] MEDS ORDERED: Latanoprost 2.5 ML BOTTLE BOTH EYES SCH (21:00)
[2017-12-27 03:13] LABS: INR 2.7; Prothrombin Time 30.8 Seconds (9.4-12.1)
--- NOTE | 2017-12-27 08:50 | Urology Progress Note ---
Date of Encounter: 12/27/17 Time of Encounter: 08:47 - Assessment and Plan (1) SUNNY (acute kidney injury) Current Visit: Yes Status: Acute Assessment and plan: resolved (2) Acute urinary retention Current Visit: Yes Status: Acute Assessment and plan: keep catheter in place. patient scheduled 845 01/03/18 in my office for voiding trial. (3) Hematuria Current Visit: Yes Status: Acute Qualifiers: Hematuria type: gross Qualified Code(s): R31.0 - Gross hematuria (4) Bilateral hydronephrosis Current Visit: Yes Status: Acute Progress Note Narrative: patient seen this am. feeling good. good uop. Objective Initial Vital Signs Temp Pulse Resp BP Pulse Ox 98.3 F 92 18 132/88 97 12/25/17 17:04 12/25/17 17:04 12/25/17 17:04 12/25/17 17:04 12/25/17 17:04 - General physical appearance Present: well developed, well nourished - Abdomen Present: soft. Absent: tender - Genitourinary Present: other (clear urine in tubing ) - Labs 12/26/17 05:24 12/26/17 05:24 Consult Discharge Plan - Plan Referrals: Brenda Bearden MD [Primary Care Provider] -
[2017-12-27] MEDS: cefTRIAXone 1,000 MG in Water for inj. (sterile) 20 ML 10 ML IVP SCH (08:52)
[2017-12-27] MEDS: Aspirin Enteric Coated 81 MG Tablet PO SCH (08:52)
[2017-12-27] MEDS: amLODIPine 5 MG TABLET PO SCH (08:52)
[2017-12-27 09:48] LABS: BUN/Creatinine Ratio 15 (6-26); Blood Urea Nitrogen 12 mg/dL (8-23); Calcium 8.8 mg/dL (8.6-10.3); Carbon Dioxide 25 mEq/L (23-29); Chloride 100 mEq/L (98-107); Glucose 128 mg/dL (70-105); Osmolality,Calculated 273 (280-300); Potassium 3.9 mEq/L (3.5-5.1); Sodium 131 mEq/L (136-145); eGFR For Non-African Americans > 60 (> 60)
--- NOTE | 2017-12-27 10:10 | Discharge Summary ---
- NOTES TO OUTPATIENT PROVIDER Notes to Outpatient Provider: keep catheter in place. patient scheduled to see urologist Dr. Marti at 845 01/03/18 for voiding trial. Follow with PCP in 2-3 [id number] urine culture report. Keep appointment at Coumadin clinic for INR management Orders not resulted at time of discharge: Pending orders 12/28/17 04:00 Complete Blood Count [HEME] AM 0400 INR/PT [Prothrombin Time INR] [COAG] AM 0400 12/29/17 04:00 INR/PT [Prothrombin Time INR] [COAG] AM 0400 12/30/17 04:00 INR/PT [Prothrombin Time INR] [COAG] AM 0400 12/31/17 04:00 INR/PT [Prothrombin Time INR] [COAG] AM 0400 Date of Encounter: 12/27/17 Time of Encounter: 10:07 - Discharge Diagnosis (1) Acute urinary retention Priority: Primary Status: Acute Assessment and Plan: - Obstructive uropathy with bilateral hydroureter or nephrosis. Consulted urologists is okay to discharge patient with instruction to keep catheter in place and follow-up in his office. (2) Atrial fibrillation with RVR Priority: Secondary Status: Acute Assessment and Plan: Normal rate but is still A. fib rhythm. On Coumadin with therapeutic INR. No more hematuria . Is stable CBC . Continue home dose of Coumadin and beta cherelle . Follow outpatient Coumadin clinic (3) SUNNY (acute kidney injury) Priority: Primary Status: Acute Assessment and Plan: Normal creatinine level now. Most likely due to postop obstructive uropathy. (4) Elevated INR Priority: Primary Status: Acute Assessment and Plan: - Therapeutic INR (5) Hypertension Priority: Secondary Status: Chronic Assessment and Plan: -Well-controlled continue to monitor. Continue home medicine Qualifiers: Hypertension type: essential hypertension Qualified Code(s): I10 - Essential (primary) hypertension (6) Urinary tract infection Priority: Primary Status: Acute Assessment and Plan: Urine culture report awaited and has to be followed outpatient with PCP. Will discharge patient on Keflex for 5 days. Patient received Rocephin during his stay in the hospital. Qualifiers: Urinary tract infection type: acute cystitis Hematuria presence: with hematuria Qualified Code(s): N30.01 - Acute cystitis with hematuria (7) Hematuria Priority: Primary Status: Acute Assessment and Plan: resolved. Gross hematuria likely related to acute cystitis in the context of anticoagulation therapy for A. fib. on board urologists. Qualifiers: Hematuria type: gross Qualified Code(s): R31.0 - Gross hematuria Hospital course: Mr. Whitmore is a 77 year old male patient got admitted for acute urine retention, hematuria with supratherapeutic INR. CT abdomen also demonstrated thickened bladder wall with bilateral hydroureteronephrosis. Escobedo catheter was inserted and consulted urologists. Eventually hematuria cleared after holding Coumadin 1 day. Initial creatinine was high but became normal later. Urologists okay to discharge patient urology standpoint on Escobedo catheter and follow-up urologists office-scheduled appointment. Please see details diagnosis part of discharge summary. At the time of discharge patient is hemodynamically stable with normal creatinine level him a clear urine with no hematuria no abdominal pain, tolerating oral diet and almost back to baseline. Discharge discussed with: patient, family - Time Spent with Patient Total time spent providing and/or coordinating discharge services: - Discharge Medications Home Medications: Aspirin Enteric Coated [Aspirin EC] 81 mg PO DAILY 07/21/17 [History] Latanoprost [Xalatan] 1 drop OP HS 07/21/17 [History] Lisinopril [Zestril] 40 mg PO DAILY 07/21/17 [History] amLODIPine [Norvasc] 2.5 mg PO DAILY 10/09/17 [History] Metoprolol Tartrate [Metoprolol Tartrate] 50 mg PO BID 12/25/17 [History] Warfarin [Coumadin] 3 mg PO TU 12/25/17 [History] Warfarin [Coumadin] 4.5 mg PO SUMOWETHFRSA 12/25/17 [History] Tamsulosin [Flomax] 0.4 mg PO HS #30 capsule 12/27/17 [Rx] cephALEXin [Keflex] 500 mg PO BID #10 capsule 12/27/17 [Rx] Allergies/Adverse Reactions: 3 Allergy/AdvReac Type Severity Reaction Status Date / Time No Known Allergies Allergy Verified 12/25/17 19:49 Date of admission: 12/25/17 21:48 Primary care physician: Brenda Bearden MD - Constitutional Vitals: Temp Pulse Resp BP Pulse Ox 98.3 F 95 14 132/82 96 12/27/17 07:15 12/27/17 07:15 12/27/17 07:15 12/27/17 07:15 12/27/17 07:15 Exam: General appearance: No acute distress, A&O X 3 Eye exam: EOMI, PERRLA ENT exam: Moist oral mucosa Neck nontender, supple Respiratory exam: Clear to auscultation bilaterally Cardiovascular exam: Regular rate and rhythm, no systolic murmur Abdominal exam: Soft, nontender, nondistended, positive bowel sounds Extremities exam: No calf tenderness, no pedal edema Present: Neurological exam: Grossly intact - Patient Status Disposition: Home, Self-Care Condition: Fair Overall status at discharge: patient is progressing back to baseline - Discharge Instructions Follow Up With: Brenda Bearden MD [Primary Care Provider] - - Diet and Activity Activity: increase activity as tolerated Diet: advance to your usual diet
[2017-12-27 10:46] VITALS: BP 124/83
[2017-12-27] MEDS ORDERED: *HR* Warfarin 3 MG TABLET PO ONE (18:00)
[2017-12-27] MEDS ORDERED: cephALEXin 500 MG CAPSULE PO SCH (21:00)
== END 2017-12-27 12:50 | disposition home or self-care (01) | DRG 690 ==
LOC: 3ANU 17:03 → EMEROO 17:03 → 3ANU 21:31
PROVIDERS: ADMIT Internal Medicine; ATTEND Internal Medicine

== ENCOUNTER 2018-01-25 09:18 | Inpatient (IN) ==
--- NOTE | 2018-01-25 09:39 | Emergency Department Note ---
Disposition Clinical Impression: Atrial fibrillation with rapid ventricular response, SUNNY (acute kidney injury) Complication of Escobedo catheter Qualifiers: Encounter type: initial encounter Qualified Code(s): T83.9XXA - Unspecified complication of genitourinary prosthetic device, implant and graft, initial encounter Head injury Qualifiers: Encounter type: initial encounter Qualified Code(s): S09.90XA - Unspecified injury of head, initial encounter Leukocytosis Qualifiers: Leukocytosis type: unspecified Qualified Code(s): D72.829 - Elevated white blood cell count, unspecified Sepsis Qualifiers: Sepsis type: sepsis due to unspecified organism Qualified Code(s): A41.9 - Sepsis, unspecified organism Disposition: Admitted As Inpatient Condition: Fair Referrals: Brenda Bearden MD [Primary Care Provider] - Forms: ED Satisfaction Letter Time of Disposition: 13:37 General Adult HPI - General Stated complaint: GI bleed Time Seen by Provider: 01/25/18 09:19 Source: patient, EMS Mode of arrival: EMS Limitations: no limitations Nursing Notes Reviewed: Yes Vital Signs Reviewed: Yes - History of Present Illness HPI Narrative: Patient is a 77-year-old male that presents emergency department for blood in his Escobedo catheter. Patient states this is placed intraoperatively by urology after having a prostate surgery performed. Patient states that this was done this past week. Patient states that he started to notice blood in his Escobedo catheter last night. Patient denies any blood in his stool however EMS reports that they had seen we will look like blood in the toilet after a bowel movement. Patient is on Coumadin for atrial fibrillation. EMS reports that the patient did hit his head while on the toilet. Patient states that he is also having neck pain. Pain Scale: 0 - Related Data Home Medications Medication Instructions Recorded Confirmed Aspirin Enteric Coated [Aspirin EC] 81 mg PO DAILY 07/21/17 01/17/18 Latanoprost [Xalatan] 1 drop OP HS 07/21/17 01/17/18 Lisinopril [Zestril] 40 mg PO DAILY 07/21/17 01/17/18 amLODIPine [Norvasc] 2.5 mg PO DAILY 10/09/17 01/17/18 Metoprolol Tartrate 50 mg PO BID 12/25/17 01/17/18 Warfarin [Coumadin] 4.5 mg PO DAILY 12/25/17 01/17/18 Previous Rx's Medication Instructions Recorded Tamsulosin [Flomax] 0.4 mg PO HS #30 capsule 12/27/17 HYDROcodone/Acet 5/325 mg [[place] 1 tab PO Q6H PRN 3 Days #12 tablet 01/17/18 5-325 mg] Allergies Allergy/AdvReac Type Severity Reaction Status Date / Time No Known Allergies Allergy Verified 12/25/17 19:49 All systems ED: reviewed and negative except as stated. Cardiovascular: Denies: chest pain Respiratory: Denies: dyspnea Gastrointestinal: Denies: vomiting, melena, hematochezia Genitourinary: Reports: other (Blood in his Escobedo catheter) Past Medical History - Past Medical History Medical history: Reports: atrial fibrillation, hypertension, other Surgical history: Reports: herniorrhaphy Psychiatric history: Reports: no psych history - Social History Smoking Status: Former smoker Smokeless Tobacco Status: No Alcohol use: Reports: none Drug use: Reports: none Physical Exam - General Limitations: no limitations General appearance: alert, in no apparent distress - Head Head exam: normocephalic, other (Dried blood on the back of head. 1 cm laceration to posterior head ) - Eye Eye exam: Present: normal appearance, EOMI - Neck Neck exam: Present: normal inspection, full ROM, trachea midline - Respiratory Respiratory exam: Present: normal lung sounds bilaterally. Absent: respiratory distress, wheezes - Cardiovascular Cardiovascular exam: Present: regular rate, irregular rhythm, normal heart sounds, +S1, +S2 - Abdominal Exam Abdominal exam: Present: soft, tenderness, normal bowel sounds Abdominal tenderness: Present: suprapubic - Rectal Exam Piling Setter present during exam: Yes Rectal exam: Absent: black stool, bloody stool - Neurological Exam Neurological exam: Present: alert, oriented X3 - Expanded Neurological Exam Speech: Present: fluid speech Cranial nerves: EOM function (II, III, IV, ): Normal, facial sensation (V): Normal, facial palsy (VII): Normal, gag reflex (IX): Normal, spinal accessory function (XI): Normal, tongue deviation (XII): Normal Cerebellar function: finger to nose: Normal Motor strength - LUE: 5/5 Motor strength - RUE: 5/5 Motor strength - LLE: 5/5 Motor strength - RLE: 5/5 Upper motor neuron exam: pronator drift: Absent bilaterally Sensory exam upper extremity: light touch: Normal Sensory exam lower extremity: light touch: Normal Coma Scale Eye Opening: Spontaneous Coma Scale Motor Response: Obeys Commands Coma Scale Verbal Response: Oriented Coma Scale Total: 15 - Psychiatric Psychiatric exam: Present: normal affect, normal mood - Skin Skin exam: Present: warm, dry, intact Course Vital Signs Temperature 97.2 F L 01/25/18 09:22 Pulse Rate 93 01/25/18 09:22 Respiratory Rate 18 01/25/18 09:22 Blood Pressure 117/79 01/25/18 09:22 O2 Sat by Pulse Oximetry 98 01/25/18 09:22 Temperature 97.2 F L 01/25/18 09:22 Pulse Rate 100 01/25/18 13:13 Respiratory Rate 19 01/25/18 13:13 Blood Pressure 97/60 01/25/18 13:13 O2 Sat by Pulse Oximetry 97 01/25/18 13:13 Oxygen Delivery Oxygen Delivery Room Air Procedures - Laceration Laceration 1 Site: scalp Side (If applicable): left Size (cm): 1 Description: linear Depth: simple, single layer Pre-repair: wound explored, irrigated extensively, deep structures intact, wound margins revised Skin layer closed with: daniella Number of sutures/daniella: 2 Medical Decision Making - MDM Narrative Medical decision making narrative: Due to the patient presenting to the emergency department with blood in his Escobedo catheter after the Escobedo catheter being placed intraoperatively for a prostate surgery we will obtain a CBC, BMP, INR and a stool occult due to there being question of whether or not there was blood in the toilet. She also hit his head and is having neck pains we will obtain CT scans of the head and cervical spine. Upon completion of the workup urology will be contacted due to there being a significant amount of blood in the patient's Escobedo catheter. Patient does have an elevated white count of 38.7. Patient's INR is 3.2. Patient does have an acute kidney injury with a creatinine of 1.44. I called and spoke with the on-call urologist Dr. Charly cazares and he recommended leaving the Escobedo catheter in place that he would see the patient in consult. A CT of the abdomen and pelvis will be obtained to evaluate for possible intra-abdominal pathology. Patient did have an elevated troponin 0.06. There are no acute ischemic changes noted on the patient's EKG. He was significantly tachycardic in the 140s. Initial troponin is likely secondary to demand ischemia however due to the patient's symptoms he will need to be admitted so I think is appropriate to continue to trend the troponins as an inpatient. The patient's urinalysis was positive for blood, leukocyte esterase and nitrites. Patient was given 1 g Rocephin here in the emergency department. We will hold the patient's warfarin here in the emergency department due to the patient's INR being elevated at 3.2. This is mildly supratherapeutic. I do not feel that there is is necessary to reverse the INR at this point. CT scan of the abdomen and pelvis showed thickening of the bladder wall and likely blood within the bladder which is consistent with the patient's hematuria. I called and spoke the admitting hospitalist Dr. Huston and he is except the patient to their service for patient be admitted to the hospital this time for further evaluation and management. - Lab Data Lab results reviewed: Yes I reviewed the patient's lab results. Result diagrams: 01/25/18 10:02 01/25/18 10:02 Lab Results 01/25/18 01/25/18 01/25/18 Range/Units 09:36 10:02 10:02 WBC 38.7 H* (4.3-11.1) K/mcL RBC 3.99 L (4.19-5.50) M/mcL Hgb 12.9 (12.9-16.9) g/dL Hct 37.3 L (37.5-50.1) % MCV 93.5 (83.0-100.0) fL MCH 32.3 (28.0-33.3) pg MCHC 34.6 (31.6-35.5) g/dL RDW 13.4 (11.5-14.5) % Plt Count 288 (140-400) K/mcL MPV 9.2 L (9.4-12.4) fL Immature Gran % 0.9 (0-4) % Seg Neutrophils % 90.6 % Lymphocytes % 2.9 % Monocytes % 5.3 % Eosinophils % 0.0 % Basophils % 0.3 % Neutrophils # 35.1 H (1.6-8.9) K/mcL Lymphocytes # 1.1 (0.6-4.6) K/mcL Monocytes # 2.1 H (0.0-1.3) K/mcL Eosinophils # 0.0 (0.0-0.6) K/mcL Basophils # 0.1 (0.0-0.2) K/mcL PT 36.2 H (9.4-12.1) Seconds INR 3.2 Sodium (136-145) mEq/L Potassium (3.5-5.1) mEq/L Chloride (98-107) mEq/L Carbon Dioxide (23-29) mEq/L BUN (8-23) mg/dL Creatinine (0.70-1.30) mg/dL Est GFR ( Amer) (> 60) Est GFR (Non-Af Amer) (> 60) BUN/Creatinine Ratio (6-26) Glucose (70-105) mg/dL Calculated Osmolality (280-300) Calcium (8.6-10.3) mg/dL Troponin I (< 0.04) ng/mL Ur Specimen Adequacy See below A Urine Color Red A (Yellow) Urine Clarity Turbid A (Clear) Urine pH 6.0 (5.0-8.0) pH Units Ur Specific [place] 1.025 (1.010-1.025) Urine Protein >=1000 H (Neg-Trace) mg/dL Urine Glucose (UA) 100 H (Normal) mg/dL Urine Ketones 40 H (Negative) mg/dL Urine Blood Large H (Negative) Urine Nitrite Positive A (Negative) Urine Bilirubin Large H (Negative) Urine Urobilinogen 4.0 H (Normal) mg/dL Ur Leukocyte Esterase Large H (Negative) Ur Culture Indicated? YES A (NO) Stool Occult Bld Scrn (Negative) 01/25/18 01/25/18 Range/Units 10:02 10:08 WBC (4.3-11.1) K/mcL RBC (4.19-5.50) M/mcL Hgb (12.9-16.9) g/dL Hct (37.5-50.1) % MCV (83.0-100.0) fL MCH (28.0-33.3) pg MCHC (31.6-35.5) g/dL RDW (11.5-14.5) % Plt Count (140-400) K/mcL MPV (9.4-12.4) fL Immature Gran % (0-4) % Seg Neutrophils % % Lymphocytes % % Monocytes % % Eosinophils % % Basophils % % Neutrophils # (1.6-8.9) K/mcL Lymphocytes # (0.6-4.6) K/mcL Monocytes # (0.0-1.3) K/mcL Eosinophils # (0.0-0.6) K/mcL Basophils # (0.0-0.2) K/mcL PT (9.4-12.1) Seconds INR Sodium 129 L (136-145) mEq/L Potassium 4.3 (3.5-5.1) mEq/L Chloride 97 L (98-107) mEq/L Carbon Dioxide 22 L (23-29) mEq/L BUN 21 (8-23) mg/dL Creatinine 1.44 H (0.70-1.30) mg/dL Est GFR ( Amer) 57 L (> 60) Est GFR (Non-Af Amer) 47 L (> 60) BUN/Creatinine Ratio 15 (6-26) Glucose 142 H (70-105) mg/dL Calculated Osmolality 273 L (280-300) Calcium 9.7 (8.6-10.3) mg/dL Troponin I 0.06 H* (< 0.04) ng/mL Ur Specimen Adequacy Urine Color (Yellow) Urine Clarity (Clear) Urine pH (5.0-8.0) pH Units Ur Specific [place] (1.010-1.025) Urine Protein (Neg-Trace) mg/dL Urine Glucose (UA) (Normal) mg/dL Urine Ketones (Negative) mg/dL Urine Blood (Negative) Urine Nitrite (Negative) Urine Bilirubin (Negative) Urine Urobilinogen (Normal) mg/dL Ur Leukocyte Esterase (Negative) Ur Culture Indicated? (NO) Stool Occult Bld Scrn Negative (Negative) - Radiology Data Radiology results reviewed: Yes I reviewed the patient's radiology results. Cervical Spine CT 01/25/18 09:32 IMPRESSION: 1. No acute fracture. D/ / Tapan Ortiz MD / Tapan Ortiz MD Interpreting Provider: Tapan Ortiz MD Head CT 01/25/18 09:32 IMPRESSION: No acute intracranial abnormality. D/ / Violetta Bush MD / Violetta Bush MD Interpreting Provider: Violetta Bush MD - EKG Data EKG #1 EKG attestation: Yes I reviewed and interpreted this EKG. EKG results narrative: EKG shows atrial fibrillation with rapid ventricular response and rate of 141 bpm, QRS duration 82, QTC of 448. No evidence of STEMI on EKG. Previous EKG on 12/25/17 shows atrial fibrillation with rapid ventricular response at a rate of 121 bpm.
[2018-01-25] MEDS ORDERED: 0.9 % Sodium Chloride 1,000 ML IVC ONE ×2 (10:12→12:43)
[2018-01-25 10:22] LABS: Mean Platelet Volume 9.2 fL (9.4-12.4)
[2018-01-25 10:24] LABS: Basophils # 0.1 K/mcL (0.0-0.2); Basophils % 0.3 %; Hematocrit 37.3 % (37.5-50.1); Hemoglobin 12.9 g/dL (12.9-16.9); Immature Granulocytes % 0.9 % (0-4); Lymphocytes # 1.1 K/mcL (0.6-4.6); Lymphocytes % 2.9 %; Mean Corpuscular HGB Conc 34.6 g/dL (31.6-35.5); Mean Corpuscular Hemoglobin 32.3 pg (28.0-33.3); Mean Corpuscular Volume 93.5 fL (83.0-100.0); Monocytes # 2.1 K/mcL (0.0-1.3); Monocytes % 5.3 %; Neutrophils # 35.1 K/mcL (1.6-8.9); Platelet Count 288 K/mcL (140-400); Red Blood Count 3.99 M/mcL (4.19-5.50); Red Cell Distribution Width 13.4 % (11.5-14.5); Segmented Neutrophils % 90.6 %
[2018-01-25 10:29] LABS: INR 3.2; Prothrombin Time 36.2 Seconds (9.4-12.1)
[2018-01-25 10:36] LABS: Calcium 9.7 mg/dL (8.6-10.3); Potassium 4.3 mEq/L (3.5-5.1)
[2018-01-25] MEDS ORDERED: Isovue-370 500 ML INFUS..BTL IV ONE (10:51)
[2018-01-25 11:09] LABS: Troponin I 0.06 ng/mL (< 0.04)
[2018-01-25 11:39] LABS: Bilirubin,Urine Large (Negative); Blood,Urine Large (Negative); Clarity,Urine Turbid (Clear); Color,Urine Red (Yellow); Glucose,Urine (UA) 100 mg/dL (Normal); Ketones,Urine 40 mg/dL (Negative); Leukocyte Esterase,Urine Large (Negative); Nitrite,Urine Positive (Negative); Protein,Urine >=1000 mg/dL (Neg-Trace); Specific Gravity,Urine 1.025 (1.010-1.025)
[2018-01-25] MEDS ORDERED: cefTRIAXone 1,000 MG in Water for inj. (sterile) 20 ML 10 ML IVP ONE (11:45)
--- NOTE | 2018-01-25 11:52 | Emergency Department Note ---
Disposition Clinical Impression: Atrial fibrillation with rapid ventricular response, SUNNY (acute kidney injury) Complication of Samaniego catheter Qualifiers: Encounter type: initial encounter Qualified Code(s): T83.9XXA - Unspecified complication of genitourinary prosthetic device, implant and graft, initial encounter Head injury Qualifiers: Encounter type: initial encounter Qualified Code(s): S09.90XA - Unspecified injury of head, initial encounter Leukocytosis Qualifiers: Leukocytosis type: unspecified Qualified Code(s): D72.829 - Elevated white blood cell count, unspecified Disposition: Admitted As Inpatient Condition: Fair Referrals: Brenda Bearden MD [Primary Care Provider] - General Adult HPI - General Chief complaint: ED Urogenital-Male Stated complaint: Blood in catheter, r/o head injury, GI Bleed? Time Seen by Provider: 01/25/18 09:19 Source: patient, EMS Mode of arrival: EMS Limitations: no limitations - History of Present Illness Pain Scale: 0 - Related Data Home Medications Medication Instructions Recorded Confirmed Aspirin Enteric Coated [Aspirin EC] 81 mg PO DAILY 07/21/17 01/17/18 Latanoprost [Xalatan] 1 drop OP HS 07/21/17 01/17/18 Lisinopril [Zestril] 40 mg PO DAILY 07/21/17 01/17/18 amLODIPine [Norvasc] 2.5 mg PO DAILY 10/09/17 01/17/18 Metoprolol Tartrate 50 mg PO BID 12/25/17 01/17/18 Warfarin [Coumadin] 4.5 mg PO DAILY 12/25/17 01/17/18 Previous Rx's Medication Instructions Recorded Tamsulosin [Flomax] 0.4 mg PO HS #30 capsule 12/27/17 HYDROcodone/Acet 5/325 mg [[place] 1 tab PO Q6H PRN 3 Days #12 tablet 01/17/18 5-325 mg] Allergies Allergy/AdvReac Type Severity Reaction Status Date / Time No Known Allergies Allergy Verified 12/25/17 19:49 Cardiovascular: Denies: chest pain Respiratory: Denies: dyspnea Gastrointestinal: Denies: vomiting, melena, hematochezia Genitourinary: Reports: other (Blood in his Samaniego catheter) Past Medical History - Past Medical History Medical history: Reports: atrial fibrillation, hypertension, other Surgical history: Reports: herniorrhaphy Psychiatric history: Reports: no psych history - Social History Smoking Status: Former smoker Smokeless Tobacco Status: No Alcohol use: Reports: none Drug use: Reports: none Physical Exam - General Limitations: no limitations General appearance: alert, in no apparent distress Course Vital Signs Temperature 97.2 F L 01/25/18 09:22 Pulse Rate 93 01/25/18 09:22 Respiratory Rate 18 01/25/18 09:22 Blood Pressure 117/79 01/25/18 09:22 O2 Sat by Pulse Oximetry 98 01/25/18 09:22 Temperature 97.2 F L 01/25/18 09:22 Pulse Rate 132 01/25/18 10:15 Respiratory Rate 18 01/25/18 10:15 Blood Pressure 104/78 01/25/18 10:15 O2 Sat by Pulse Oximetry 99 01/25/18 10:15 Oxygen Delivery Oxygen Delivery Room Air Medical Decision Making - Lab Data Result diagrams: 01/25/18 10:02 01/25/18 10:02 Lab Results 01/25/18 01/25/18 01/25/18 Range/Units 09:36 10:02 10:02 WBC 38.7 H* (4.3-11.1) K/mcL RBC 3.99 L (4.19-5.50) M/mcL Hgb 12.9 (12.9-16.9) g/dL Hct 37.3 L (37.5-50.1) % MCV 93.5 (83.0-100.0) fL MCH 32.3 (28.0-33.3) pg MCHC 34.6 (31.6-35.5) g/dL RDW 13.4 (11.5-14.5) % Plt Count 288 (140-400) K/mcL MPV 9.2 L (9.4-12.4) fL Immature Gran % 0.9 (0-4) % Seg Neutrophils % 90.6 % Lymphocytes % 2.9 % Monocytes % 5.3 % Eosinophils % 0.0 % Basophils % 0.3 % Neutrophils # 35.1 H (1.6-8.9) K/mcL Lymphocytes # 1.1 (0.6-4.6) K/mcL Monocytes # 2.1 H (0.0-1.3) K/mcL Eosinophils # 0.0 (0.0-0.6) K/mcL Basophils # 0.1 (0.0-0.2) K/mcL PT 36.2 H (9.4-12.1) Seconds INR 3.2 Sodium (136-145) mEq/L Potassium (3.5-5.1) mEq/L Chloride (98-107) mEq/L Carbon Dioxide (23-29) mEq/L BUN (8-23) mg/dL Creatinine (0.70-1.30) mg/dL Est GFR ( Amer) (> 60) Est GFR (Non-Af Amer) (> 60) BUN/Creatinine Ratio (6-26) Glucose (70-105) mg/dL Calculated Osmolality (280-300) Calcium (8.6-10.3) mg/dL Troponin I (< 0.04) ng/mL Ur Specimen Adequacy See below A Urine Color Red A (Yellow) Urine Clarity Turbid A (Clear) Urine pH 6.0 (5.0-8.0) pH Units Ur Specific [place] 1.025 (1.010-1.025) Urine Protein >=1000 H (Neg-Trace) mg/dL Urine Glucose (UA) 100 H (Normal) mg/dL Urine Ketones 40 H (Negative) mg/dL Urine Blood Large H (Negative) Urine Nitrite Positive A (Negative) Urine Bilirubin Large H (Negative) Urine Urobilinogen 4.0 H (Normal) mg/dL Ur Leukocyte Esterase Large H (Negative) Ur Culture Indicated? YES A (NO) Stool Occult Bld Scrn (Negative) 01/25/18 01/25/18 Range/Units 10:02 10:08 WBC (4.3-11.1) K/mcL RBC (4.19-5.50) M/mcL Hgb (12.9-16.9) g/dL Hct (37.5-50.1) % MCV (83.0-100.0) fL MCH (28.0-33.3) pg MCHC (31.6-35.5) g/dL RDW (11.5-14.5) % Plt Count (140-400) K/mcL MPV (9.4-12.4) fL Immature Gran % (0-4) % Seg Neutrophils % % Lymphocytes % % Monocytes % % Eosinophils % % Basophils % % Neutrophils # (1.6-8.9) K/mcL Lymphocytes # (0.6-4.6) K/mcL Monocytes # (0.0-1.3) K/mcL Eosinophils # (0.0-0.6) K/mcL Basophils # (0.0-0.2) K/mcL PT (9.4-12.1) Seconds INR Sodium 129 L (136-145) mEq/L Potassium 4.3 (3.5-5.1) mEq/L Chloride 97 L (98-107) mEq/L Carbon Dioxide 22 L (23-29) mEq/L BUN 21 (8-23) mg/dL Creatinine 1.44 H (0.70-1.30) mg/dL Est GFR ( Amer) 57 L (> 60) Est GFR (Non-Af Amer) 47 L (> 60) BUN/Creatinine Ratio 15 (6-26) Glucose 142 H (70-105) mg/dL Calculated Osmolality 273 L (280-300) Calcium 9.7 (8.6-10.3) mg/dL Troponin I 0.06 H* (< 0.04) ng/mL Ur Specimen Adequacy Urine Color (Yellow) Urine Clarity (Clear) Urine pH (5.0-8.0) pH Units Ur Specific [place] (1.010-1.025) Urine Protein (Neg-Trace) mg/dL Urine Glucose (UA) (Normal) mg/dL Urine Ketones (Negative) mg/dL Urine Blood (Negative) Urine Nitrite (Negative) Urine Bilirubin (Negative) Urine Urobilinogen (Normal) mg/dL Ur Leukocyte Esterase (Negative) Ur Culture Indicated? (NO) Stool Occult Bld Scrn Negative (Negative) Attestation Statement - Attestation Attestation: I examined this patient and my medical decision-making was reviewed with the Resident Physician. I agree with the documented findings, disposition and treatment plan as described except to the extent set forth below. 77 year old male prsenset to the ED with complaints of hematuria and most recetly had a samaniego catheter placed s/p prostate trimming per Dr. Marti on Sunday. PAtine tstates that he is expereincind mild suprapubic pain and has a WBC in the 30s which has drastically changed from Sunday when it was 3.9. He also has a hsitory of atrial fibrillation and is tachycardiac to 140s although after IVF hydration he is now 105 and hemodynaically stable hgb of 12.9. We have consulted with urology who does not advise to remove the samaniego and will see him in consult with admission to medicine. We will obtain a ABCT in the interim period and admit to medicine accordingly
[2018-01-25] MEDS ORDERED: *HR* FentaNYL (PF) 100 MCG/2 ML VIAL IVP ONE (11:54)
[2018-01-25] MEDS ORDERED: Ondansetron 4 MG/2 ML VIAL IVP ONE (12:18)
[2018-01-25] MEDS ORDERED: Naloxone 0.4 MG/ML INJ IVP PRN (15:02)
[2018-01-25] MEDS ORDERED: *HR* HYDROcodone/Acet 5/325 mg TABLET PO PRN (15:04)
--- NOTE | 2018-01-25 15:13 | Internal Med History&Physical ---
<Damion Roberts S - Last Filed: 01/25/18 15:06> Date of Encounter: 01/25/18 Time of Encounter: 15:00 Internal Medicine - H&P: HPI Chief complaint: "peeing blood" Admitted From: Home Plans for Post Hospital Care: Home History of present illness: Mr. Whitmore is a 77 year old male with PMH of a fib, HTN, and BPH s/p TURP who presented to the ER with c/o blood in his urine. He states that this started today and that yesterday his urine was completely fine. He endorses dizziness when he stands and reportedly hit his head against the toilet before EMS got him. CT head and c-spine was negative. He denies any blood in the stool, coughing up blood. He reports this has never happened before. The pt has been on Coumadin since June when he began to have a fib. In the ER he is found to have a supratheraputic INR of 3.2. He denies any chest pain or palpitations. The pt had TURP procedure done with Dr. Marti last week for BPH. He tolerated the procedure well but now has catheter indwelling placed by urology intraoperatively. The pt had a UA (+) for large amounts of blood and a (+) leukocyte esterase and was treated with rocephin IV in the ER. He has had some subjective fever/chills assoc with his symptoms. ON admission pt meets sepsis criteria for WBC count 38.7 HR 100 and (+) source of infxn as UA. Tx with rocephin IV. 2L 0.9% NS IVF. Past Med Surg Social Fam HX - Past Medical History Medical history: atrial fibrillation, hypertension, other Additional medical history: [place]-wears bilat hearing aides, allergic rhinitis- grass, glaucoma, insomnia, ED, BPH, Psychiatric history: no psych history - Past Surgical History Surgical History: herniorrhaphy Additional surgical history: 1992-double hernia, scrotum surgery-2002 - Social History Smoking Status: Former smoker Smokeless Tobacco Status: No Alcohol use: none Drug use: none Internal Medicine - H&P: Meds Aspirin Enteric Coated [Aspirin EC] 81 mg PO DAILY 07/21/17 [History] Latanoprost [Xalatan] 1 drop OP HS 07/21/17 [History] Lisinopril [Zestril] 40 mg PO DAILY 07/21/17 [History] amLODIPine [Norvasc] 2.5 mg PO DAILY 10/09/17 [History] Metoprolol Tartrate 50 mg PO BID 12/25/17 [History] Warfarin [Coumadin] 4.5 mg PO DAILY 12/25/17 [History] Tamsulosin [Flomax] 0.4 mg PO HS #30 capsule 12/27/17 [Rx] HYDROcodone/Acet 5/325 mg [[place] 5-325 mg] 1 tab PO Q6H PRN 3 Days #12 tablet [Rx] 3 Allergy/AdvReac Type Severity Reaction Status Date / Time No Known Allergies Allergy Verified 12/25/17 19:49 All Systems PM: A 10-system review of systems was performed and is negative for pertinent findings except as documented above in the HPI. - Constitutional Constitutional: chills, fatigue, fever(s) - Cardiovascular Cardiovascular ROS IM: lightheadedness, no dyspnea, no dyspnea on exertion, no edema, no palpitations, no paroxysmal nocturnal dyspnea - Respiratory Respiratory: no cough, no dyspnea, no pain on inspiration - Gastrointestinal Gastrointestinal: no abdominal pain, no hematemesis, no hematochezia, no melena , no nausea, no vomiting - Genitourinary Genitourinary ROS male: hematuria - Neurological Neurological ROS: dizziness - Hematologic/Lymphatic Hematologic/Lymphatic: easy bleeding - Constitutional Vitals: Temp Pulse Resp BP Pulse Ox 97.2 F L 109 11 113/86 97 01/25/18 09:22 01/25/18 14:32 01/25/18 14:32 01/25/18 14:32 01/25/18 14:32 General appearance: Present: A&O X 3, answers questions appropriately Exam: x - Respiratory Respiratory exam: Present: CTAB - Cardiovascular Cardiovascular exam: Present: irregular rhythm, tachycardia - GI/Abdominal GI/Abdominal exam: Present: tenderness, no peritoneal signs - Neurological Exam Neurological exam: Present: oriented X3, no focal deficits - Skin Skin exam: Present: intact Internal Med - H&P Results - Labs CBC & Chem 7: 01/25/18 10:02 01/25/18 10:02 - Assessment and plan (1) Supratherapeutic INR Current Visit: Yes Status: Acute Assessment and plan: Pt presented to the ER with a 1 day hx of peeing blood, samaniego cath bag is filled with red urine. Reports changing a bag this morning filled with red urine. 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 -H&H q6hr -CBC in the morning -urology consulted -0.9% NS for 2L -vital signs q4hr (2) Sepsis Current Visit: Yes Status: Acute Assessment and plan: On admission pt meets SIRS criteria for HR 100, wbc of 38.7 -has (+) source of infxn as UA Plan: -repeat CBC in AM -rocephin IV -urine culture pending -0.9% NS for 2L -vital signs q4hr Qualifiers: Sepsis type: sepsis due to unspecified organism Qualified Code(s): A41.9 - Sepsis, unspecified organism (3) UTI (urinary tract infection) Current Visit: Yes Status: Acute Assessment and plan: UTI most likely 2/2 to indwelling catheter -pt treated with rocephin in the ER UA showed large amounts of blood (+) nitrite, (+) leukocyte esterase WBC count 38.7, HR 100 --> (+) SIRS criteria with a source as UTI Plan: -continue rocephin IV -urine cx pending -urology consulted Qualifiers: Urinary tract infection type: catheter-associated UTI Indwelling urinary catheter type: indwelling urethral catheter Encounter type: initial encounter Qualified Code(s): T83.511A - Infection and inflammatory reaction due to indwelling urethral catheter, initial encounter; N39.0 - Urinary tract infection , site not specified (4) Atrial fibrillation with RVR Current Visit: Yes Status: Acute Assessment and plan: Pt has hx of chronic A fib since june -currently irregular rhythm -ekg in ER showed a fib with RVR Pt denies chest pain Plan: -continue Lopressor 50mg PO BID -discontinue warfarin, ASA -CHADVASc of 3, HASBLED of 4 as mentioned above (5) Hypertension Current Visit: No Status: Chronic Assessment and plan: BP currently 97/60 -on Zestril 40mg PO daily, lopressol 50mg PO BID, tamsulosin 0.4mg PO hs -BP low secondary to a fib rvr vs infxn -will hold zestril for now, continue lopressor -continue tamsulosin if ok with urology Qualifiers: Hypertension type: essential hypertension Qualified Code(s): I10 - Essential (primary) hypertension (6) Elevated troponin Current Visit: Yes Status: Acute Assessment and plan: Troponin of 0.06 initially -most likely due to type II (demand ischemia) -continue to trend troponins -pt denies chest pain/palpiltations -EKG shows NO st segment elevation or t wave inversion - Time Spent With Patient Total time spent is greater than 50% in coordination of care (as documented) at patient's floor/unit and/or counseling patient: less than 15 minutes <Joseph Das - Last Filed: 01/25/18 15:38> Date of Encounter: 01/25/18 Internal Medicine - H&P: HPI History of present illness: Mr. Whitmore is a 77 year old male All Systems PM: A 10-system review of systems was performed and is negative for pertinent findings except as documented above in the HPI. - Constitutional Vitals: Temp Pulse Resp BP Pulse Ox 97.2 F L 109 11 113/86 97 01/25/18 09:22 01/25/18 14:32 01/25/18 14:32 01/25/18 14:32 01/25/18 14:32 Internal Med - H&P Results - Labs CBC & Chem 7: 01/25/18 10:02 01/25/18 10:02 - Assessment and plan (1) Atrial fibrillation with RVR Current Visit: Yes Status: Acute (2) Hypertension Current Visit: No Status: Chronic Qualifiers: Hypertension type: essential hypertension Qualified Code(s): I10 - Essential (primary) hypertension (3) Supratherapeutic INR Current Visit: Yes Status: Acute (4) UTI (urinary tract infection) Current Visit: Yes Status: Acute Qualifiers: Urinary tract infection type: catheter-associated UTI Indwelling urinary catheter type: indwelling urethral catheter Encounter type: initial encounter Qualified Code(s): T83.511A - Infection and inflammatory reaction due to indwelling urethral catheter, initial encounter; N39.0 - Urinary tract infection , site not specified (5) Sepsis Current Visit: Yes Status: Acute Qualifiers: Sepsis type: sepsis due to unspecified organism Qualified Code(s): A41.9 - Sepsis, unspecified organism (6) Elevated troponin Current Visit: Yes Status: Acute - Time Spent With Patient Total time spent is greater than 50% in coordination of care (as documented) at patient's floor/unit and/or counseling patient: - Attending Attestation I have seen and examined this pt independently. I have discussed with resident physician Dr Roberts regarding the management plan. Agree with the documentation.
[2018-01-25] MEDS ORDERED: *HR* Phytonadione 5 MG TABLET PO ONE (15:19)
--- NOTE | 2018-01-25 16:42 | Urology - Consult Note ---
Date of Encounter: 01/25/18 Time of Encounter: 16:40 - Assessment and Plan (1) Gross hematuria Current Visit: Yes Status: Acute Assessment and plan: Patient's catheter was removed. Patient was then prepped and draped in normal sterile fashion. A 24-Turkish hematuria catheter was then placed into the patient's bladder. A large amount of clot was then irrigated out of the patient 's bladder. He was then connected to continuous bladder irrigation. Patient will need to continue with continuous bladder irrigation at this time. We will continue to reassess. Recommend to hold all anticoagulation at this time. (2) Leukocytosis Current Visit: Yes Status: Acute Assessment and plan: Unsure of etiology of leukocytosis. Could be UTI related. Await cultures. Qualifiers: Leukocytosis type: unspecified Qualified Code(s): D72.829 - Elevated white blood cell count, unspecified Urology CN:HPI Consult date: 01/25/18 Reason for consult Urology: Gross Hematuria Requesting physician: Ashley Huston History of present illness: Marcelino is a 77-year-old male with a history of recent TURP. Patient was scheduled today for catheter removal. Patient was restarted back on his Coumadin earlier than expected. He states his urine was doing okay until last night started to develop some gross hematuria. Patient also with possible GI bleed. Patient had a slight fall and did hit the back of his head. Patient states that his catheter has been draining poorly. Past Med Surg Social Fam HX - Past Medical History Medical history: atrial fibrillation, hypertension, other Additional medical history: [place]-wears bilat hearing aides, allergic rhinitis- grass, glaucoma, insomnia, ED, BPH, Psychiatric history: no psych history - Past Surgical History Surgical History: herniorrhaphy Additional surgical history: 1992-double hernia, scrotum surgery-2002 - Social History Smoking Status: Former smoker Smokeless Tobacco Status: No Alcohol use: none Drug use: none Medications and Allergies Aspirin Enteric Coated [Aspirin EC] 81 mg PO DAILY 07/21/17 [History] Latanoprost [Xalatan] 1 drop OP HS 07/21/17 [History] Lisinopril [Zestril] 40 mg PO DAILY 07/21/17 [History] amLODIPine [Norvasc] 2.5 mg PO DAILY 10/09/17 [History] Metoprolol Tartrate 50 mg PO BID 12/25/17 [History] Warfarin [Coumadin] 4.5 mg PO DAILY 12/25/17 [History] Tamsulosin [Flomax] 0.4 mg PO HS #30 capsule 12/27/17 [Rx] HYDROcodone/Acet 5/325 mg [[place] 5-325 mg] 1 tab PO Q6H PRN 3 Days #12 tablet [Rx] 3 Allergy/AdvReac Type Severity Reaction Status Date / Time No Known Allergies Allergy Verified 12/25/17 19:49 Review of Systems - Constitutional no chills, no fever(s) - EENT Nose, mouth and throat: no dizziness - Cardiovascular no chest pain - Respiratory no cough - Gastrointestinal abdominal pain, no nausea, no vomiting Exam Initial Vital Signs Temp Pulse Resp BP Pulse Ox 97.2 F L 93 18 117/79 98 01/25/18 09:22 01/25/18 09:22 01/25/18 09:22 01/25/18 09:22 01/25/18 09:22 General/Neuological: alert and oriented x 3 Eyes: normal pupils, non-icteric Neck: no lymphadenopathy noted, supple to touch ABD: soft, nontender, no masses palpated, good bowel sounds : Catheter in place with bloody urine. Back: no pain on percussion bilaterally Skin: no rashes noted Musculoskeletal: normal gait, FROMx4 Urology Results - Labs 01/25/18 10:02 01/25/18 10:02 Abnormal lab results WBC 38.7 K/mcL (4.3-11.1) H* 01/25/18 10:02 RBC 3.99 M/mcL (4.19-5.50) L 01/25/18 10:02 Hct 37.3 % (37.5-50.1) L 01/25/18 10:02 MPV 9.2 fL (9.4-12.4) L 01/25/18 10:02 Neutrophils # 35.1 K/mcL (1.6-8.9) H 01/25/18 10:02 Monocytes # 2.1 K/mcL (0.0-1.3) H 01/25/18 10:02 PT 36.2 Seconds (9.4-12.1) H 01/25/18 10:02 Sodium 129 mEq/L (136-145) L 01/25/18 10:02 Chloride 97 mEq/L (98-107) L 01/25/18 10:02 Carbon Dioxide 22 mEq/L (23-29) L 01/25/18 10:02 Creatinine 1.44 mg/dL (0.70-1.30) H 01/25/18 10:02 Est GFR ( Amer) 57 (> 60) L 01/25/18 10:02 Est GFR (Non-Af Amer) 47 (> 60) L 01/25/18 10:02 Glucose 142 mg/dL (70-105) H 01/25/18 10:02 Calculated Osmolality 273 (280-300) L 01/25/18 10:02 Troponin I 0.06 ng/mL (< 0.04) H* 01/25/18 10:02 Ur Specimen Adequacy See below A 01/25/18 09:36 Urine Color Red (Yellow) A 01/25/18 09:36 Urine Clarity Turbid (Clear) A 01/25/18 09:36 Urine Protein >=1000 mg/dL (Neg-Trace) H 01/25/18 09:36 Urine Glucose (UA) 100 mg/dL (Normal) H 01/25/18 09:36 Urine Ketones 40 mg/dL (Negative) H 01/25/18 09:36 Urine Blood Large (Negative) H 01/25/18 09:36 Urine Nitrite Positive (Negative) A 01/25/18 09:36 Urine Bilirubin Large (Negative) H 01/25/18 09:36 Urine Urobilinogen 4.0 mg/dL (Normal) H 01/25/18 09:36 Ur Leukocyte Esterase Large (Negative) H 01/25/18 09:36 Ur Culture Indicated? YES (NO) A 01/25/18 09:36 All other labs normal. - Imaging CT scan - abdomen: image reviewed CT scan - pelvis: image reviewed (CT abdomen and pelvis reveals a large amount of blood products within the patient's bladder.) Consult Discharge Plan - Plan Referrals: Brenda Bearden MD [Primary Care Provider] -
[2018-01-25 17:34] LABS: Hemoglobin 11.1 g/dL (12.9-16.9)
[2018-01-25] MEDS: 0.9 % Sodium Chloride 1,000 ML IVC SCH (18:03)
[2018-01-25] MEDS: Latanoprost 2.5 ML BOTTLE BOTH EYES SCH (21:17)
[2018-01-25 22:52] LABS: Hematocrit 31.2 % (37.5-50.1); Hemoglobin 10.6 g/dL (12.9-16.9)
[2018-01-26] MEDS: 0.9 % Sodium Chloride 1,000 ML IVC SCH (04:08)
[2018-01-26 06:03] LABS: Basophils % 0.2 %; Eosinophils # 0.1 K/mcL (0.0-0.6); Eosinophils % 0.5 %; Hematocrit 27.8 % (37.5-50.1); Hemoglobin 9.3 g/dL (12.9-16.9); Immature Granulocytes % 0.5 % (0-4); Lymphocytes # 1.6 K/mcL (0.6-4.6); Lymphocytes % 8.2 %; Mean Corpuscular HGB Conc 33.5 g/dL (31.6-35.5); Mean Corpuscular Hemoglobin 31.6 pg (28.0-33.3); Mean Corpuscular Volume 94.6 fL (83.0-100.0); Mean Platelet Volume 9.6 fL (9.4-12.4); Monocytes # 1.4 K/mcL (0.0-1.3); Neutrophils # 16.4 K/mcL (1.6-8.9); Platelet Count 182 K/mcL (140-400); Red Blood Count 2.94 M/mcL (4.19-5.50); Red Cell Distribution Width 13.6 % (11.5-14.5); Segmented Neutrophils % 83.6 %
[2018-01-26 06:05] LABS: INR 2.2; Prothrombin Time 24.6 Seconds (9.4-12.1)
[2018-01-26 06:25] LABS: Alanine Aminotransferase 9 Units/L (7-52); Albumin 2.7 g/dL (3.5-5.7); Albumin/Globulin Ratio 1.1 (1.1-2.2); Alkaline Phosphatase 45 Units/L (34-104); Aspartate Amino Transferase 13 Units/L (13-39); BUN/Creatinine Ratio 23 (6-26); Bilirubin,Total 0.7 mg/dL (0.3-1.0); Blood Urea Nitrogen 20 mg/dL (8-23); Calcium 8.2 mg/dL (8.6-10.3); Carbon Dioxide 22 mEq/L (23-29); Chloride 104 mEq/L (98-107); Globulin 2.5 g/dL (2.4-3.5); Glucose 100 mg/dL (70-105); Osmolality,Calculated 273 (280-300); Potassium 3.8 mEq/L (3.5-5.1); Sodium 130 mEq/L (136-145); Total Protein 5.2 g/dL (6.4-8.9); eGFR For Non-African Americans > 60 (> 60)
--- NOTE | 2018-01-26 08:31 | Internal Med Progress Note ---
<Damion Roberts S - Last Filed: 01/26/18 08:28> Hospitalist Progress Note - Encounter Date of Encounter: 01/26/18 Time of Encounter: 08:00 - Subjective Interval History: Mr. Whitmore is a 77 year old male with PMH of a fib, HTN, and BPH s/p TURP who presented to the ER with c/o blood in his urine He had bloody urine of 1 day w/ subjective chills and fevers, most likely 2/2 UTI. He had dizziness and reportedly hit his head against the toilet, workup of CT head and c-spine was negative. Today the pt is seen at bedside and he reports no complaints. He denies chest pain, N/V/D, abd pain, or SOB. Dr. Marti is seeing and recommends continuous bladder irrigation at this time. Holding all anticoagulation. On Rocephin for UTI. CT abdomen and pelvis Prominent thickening of the urinary bladder wall with heterogeneous enhancement raises concern for severe cystitis. High density material in the urinary bladder lumen may be related to excreted contrast and/or blood products. This corresponds to the history of hematuria - Exam Vitals: Temp Pulse Resp BP Pulse Ox 98.9 F 114 16 116/76 95 01/26/18 07:20 01/26/18 07:20 01/26/18 07:20 01/26/18 07:20 01/26/18 07:20 Exam: general - nad , aox3 cardio - irregularly irregular, normal rate lungs - ctab no wheeze abd - ntnd, no rebound or guarding skin - intact, no rash extremities - no edema - Assessment and Plan (1) Supratherapeutic INR Current Visit: Yes Status: Acute Assessment and Plan: Pt presented to the ER with a 1 day hx of peeing blood, samaniego cath bag is filled with red urine. Reports changing a bag this morning filled with red urine. -pt is s/p TURP for BPH and has indwelling catheter in place PT - 36.2 ---> 24.6 INR - 3.2 ---> 2.2 FOBT(-) CT head negative for acute intracranial process Initial hemoglobin 12.9 ---> today is 9.3 Plan: -2.5mg PO vitamin K given yesterday -PT/INR in the AM -hold Coumadin/aspirin -CHADVASc of 3 -HASBLED of 4 -H&H in 6hrs -CBC in the morning -0.9% NS discontinued -vital signs q4hr -continue to monitor clinically (2) Sepsis Current Visit: Yes Status: Acute Assessment and Plan: On admission pt meets SIRS criteria for HR 100, wbc of 38.7 -has (+) source of infxn as UA Today HR 114, WBC 19.6; still meets sepsis criteria with (+) UA as source Plan: -repeat CBC in AM -continue rocephin IV -urine culture pending -0.9% NS d/c -vital signs q4hr (3) UTI (urinary tract infection) Current Visit: Yes Status: Acute Assessment and Plan: UTI most likely 2/2 to indwelling catheter -pt treated with rocephin in the ER UA showed large amounts of blood (+) nitrite, (+) leukocyte esterase WBC count 38.7, HR 100 --> (+) SIRS criteria with a source as UTI -WBC count today has improved to 19.6 CT abdomen and pelvis -Prominent thickening of the urinary bladder wall with heterogeneous enhancement raises concern for severe cystitis. High density material in the urinary bladder lumen may be related to excreted contrast and/or blood products. This corresponds to the history of hematuria. Plan: -continue rocephin IV -urine cx pending -urology consulted; they changed catheter and have started continuous bladder irrigation (4) Atrial fibrillation with RVR Current Visit: Yes Status: Resolved Assessment and Plan: Pt has hx of chronic A fib since june -currently irregular rhythm -ekg in ER showed a fib with RVR Pt denies chest pain Plan: -continue Lopressor 50mg PO BID -discontinue warfarin, ASA -CHADVASc of 3, HASBLED of 4 as mentioned above (5) Hypertension Current Visit: No Status: Chronic Assessment and Plan: BP currently 116/76 -on Zestril 40mg PO daily, lopressol 50mg PO BID, tamsulosin 0.4mg PO hs -BP low secondary to a fib rvr vs infxn -will hold zestril for now, continue lopressor -continue tamsulosin if ok with urology (6) Elevated troponin Current Visit: Yes Status: Acute Assessment and Plan: Troponin of 0.06 initially -trended down to 0.05 ---> 0.04 -most likely due to type II (demand ischemia) -pt denies chest pain/palpiltations -EKG shows NO st segment elevation or t wave inversion - Time Spent with Patient Total time spent is greater than 50% in coordination of care (as documented) at patient's floor/unit and/or counseling patient: less than 15 minutes Plan of Care Discussed with: patient Internal Medicine: Result - Labs CBC & Chem 7: 01/26/18 05:02 01/26/18 05:02 Labs: Short CBC 01/25/18 01/25/18 01/26/18 Range/Units 17:19 22:15 05:02 WBC 19.6 H (4.3-11.1) K/mcL Hgb 11.1 L D 10.6 L 9.3 L (12.9-16.9) g/dL Hct 33.0 L 31.2 L 27.8 L (37.5-50.1) % Plt Count 182 (140-400) K/mcL Neutrophils # 16.4 H (1.6-8.9) K/mcL BMP 01/26/18 05:02 Sodium 130 L Potassium 3.8 Chloride 104 Carbon Dioxide 22 L BUN 20 Creatinine 0.87 Glucose 100 Calcium 8.2 L Cardiac Enzymes 01/25/18 01/25/18 Range/Units 16:49 22:15 Troponin I 0.05 H* 0.04 H* (< 0.04) ng/mL Liver Function 01/26/18 Range/Units 05:02 Total Bilirubin 0.7 (0.3-1.0) mg/dL AST 13 (13-39) Units/L ALT 9 (7-52) Units/L Alkaline Phosphatase 45 (34-104) Units/L Albumin 2.7 L (3.5-5.7) g/dL - ABG Interpretation ABG results: PT/INR, D-dimer PT 24.6 Seconds (9.4-12.1) H 01/26/18 05:02 Consult Discharge Plan - Plan Referrals: Brenad Bearden MD [Primary Care Provider] - <Joseph Das - Last Filed: 01/26/18 11:45> Hospitalist Progress Note - Encounter Date of Encounter: 01/26/18 - Exam Vitals: Temp Pulse Resp BP Pulse Ox 97.6 F 113 16 106/68 97 01/26/18 10:25 01/26/18 10:25 01/26/18 10:25 01/26/18 10:25 01/26/18 10:25 - Assessment and Plan (1) Atrial fibrillation with RVR Current Visit: Yes Status: Resolved (2) Hypertension Current Visit: No Status: Chronic (3) Supratherapeutic INR Current Visit: Yes Status: Acute (4) UTI (urinary tract infection) Current Visit: Yes Status: Acute (5) Sepsis Current Visit: Yes Status: Acute (6) Elevated troponin Current Visit: Yes Status: Acute - Time Spent with Patient Total time spent is greater than 50% in coordination of care (as documented) at patient's floor/unit and/or counseling patient: Internal Medicine: Result - Labs CBC & Chem 7: 01/26/18 09:44 01/26/18 05:02 Labs: Short CBC 01/25/18 01/25/18 01/26/18 Range/Units 17:19 22:15 05:02 WBC 19.6 H (4.3-11.1) K/mcL Hgb 11.1 L D 10.6 L 9.3 L (12.9-16.9) g/dL Hct 33.0 L 31.2 L 27.8 L (37.5-50.1) % Plt Count 182 (140-400) K/mcL Neutrophils # 16.4 H (1.6-8.9) K/mcL 01/26/18 Range/Units 09:44 WBC (4.3-11.1) K/mcL Hgb 10.4 L (12.9-16.9) g/dL Hct 30.7 L (37.5-50.1) % Plt Count (140-400) K/mcL Neutrophils # (1.6-8.9) K/mcL BMP 01/26/18 05:02 Sodium 130 L Potassium 3.8 Chloride 104 Carbon Dioxide 22 L BUN 20 Creatinine 0.87 Glucose 100 Calcium 8.2 L Cardiac Enzymes 01/25/18 01/25/18 Range/Units 16:49 22:15 Troponin I 0.05 H* 0.04 H* (< 0.04) ng/mL Liver Function 01/26/18 Range/Units 05:02 Total Bilirubin 0.7 (0.3-1.0) mg/dL AST 13 (13-39) Units/L ALT 9 (7-52) Units/L Alkaline Phosphatase 45 (34-104) Units/L Albumin 2.7 L (3.5-5.7) g/dL - ABG Interpretation ABG results: PT/INR, D-dimer PT 24.6 Seconds (9.4-12.1) H 01/26/18 05:02 - Attending Attestation I have seen and examined this patient independently. I have discussed with resident physician Dr. Roberts regarding the management. Agree with the documentation. <Damion Roberts S - Last Filed: 01/26/18 08:28> (2) Sepsis Qualifiers: Sepsis type: sepsis due to unspecified organism Qualified Code(s): A41.9 - Sepsis, unspecified organism (3) UTI (urinary tract infection) Qualifiers: Urinary tract infection type: catheter-associated UTI Indwelling urinary catheter type: indwelling urethral catheter Encounter type: initial encounter Qualified Code(s): T83.511A - Infection and inflammatory reaction due to indwelling urethral catheter, initial encounter; N39.0 - Urinary tract infection , site not specified (5) Hypertension Qualifiers: Hypertension type: essential hypertension Qualified Code(s): I10 - Essential (primary) hypertension <Joseph Das - Last Filed: 01/26/18 11:45> (2) Hypertension Qualifiers: Hypertension type: essential hypertension Qualified Code(s): I10 - Essential (primary) hypertension (4) UTI (urinary tract infection) Qualifiers: Urinary tract infection type: catheter-associated UTI Indwelling urinary catheter type: indwelling urethral catheter Encounter type: initial encounter Qualified Code(s): T83.511A - Infection and inflammatory reaction due to indwelling urethral catheter, initial encounter; N39.0 - Urinary tract infection , site not specified (5) Sepsis Qualifiers: Sepsis type: sepsis due to unspecified organism Qualified Code(s): A41.9 - Sepsis, unspecified organism
[2018-01-26] MEDS: amLODIPine 5 MG TABLET PO SCH (09:30)
[2018-01-26] MEDS: cefTRIAXone 1,000 MG in Water for inj. (sterile) 20 ML 10 ML IVP SCH (09:31)
[2018-01-26 09:53] LABS: Hematocrit 30.7 % (37.5-50.1); Hemoglobin 10.4 g/dL (12.9-16.9)
--- NOTE | 2018-01-26 12:14 | Urology Progress Note ---
Date of Encounter: 01/26/18 Time of Encounter: 12:13 - Assessment and Plan (1) Gross hematuria Current Visit: Yes Status: Acute Assessment and plan: Appears to be improving with irrigation overnight. We will plan on continuing continuous bladder irrigation one more day. Possible discontinue of irrigation tomorrow. Patient will need to keep this catheter for at least one week. (2) Leukocytosis Current Visit: Yes Status: Acute Assessment and plan: Dramatic improvement overnight. We will continue with observation. Qualifiers: Leukocytosis type: unspecified Qualified Code(s): D72.829 - Elevated white blood cell count, unspecified Progress Note Narrative: Patient seen this morning. Patient had to have some irrigation performed last night. Patient's urine looks good this morning on minimal irrigation drip. Objective Initial Vital Signs Temp Pulse Resp BP Pulse Ox 97.2 F L 93 18 117/79 98 01/25/18 09:22 01/25/18 09:22 01/25/18 09:22 01/25/18 09:22 01/25/18 09:22 - General physical appearance Present: well developed, well nourished - Abdomen Present: soft. Absent: tender - Genitourinary Present: other (Urine clear in catheter tubing) - Labs 01/26/18 09:44 01/26/18 05:02 Diabetes panel 01/26/18 Range/Units 05:02 Sodium 130 L (136-145) mEq/L Potassium 3.8 (3.5-5.1) mEq/L Chloride 104 (98-107) mEq/L Carbon Dioxide 22 L (23-29) mEq/L BUN 20 (8-23) mg/dL Creatinine 0.87 (0.70-1.30) mg/dL Glucose 100 (70-105) mg/dL Calcium 8.2 L (8.6-10.3) mg/dL AST 13 (13-39) Units/L ALT 9 (7-52) Units/L Alkaline Phosphatase 45 (34-104) Units/L Albumin 2.7 L (3.5-5.7) g/dL Calcium panel 01/26/18 Range/Units 05:02 Calcium 8.2 L (8.6-10.3) mg/dL Albumin 2.7 L (3.5-5.7) g/dL Pituitary panel 01/26/18 Range/Units 05:02 Sodium 130 L (136-145) mEq/L Potassium 3.8 (3.5-5.1) mEq/L Chloride 104 (98-107) mEq/L Carbon Dioxide 22 L (23-29) mEq/L BUN 20 (8-23) mg/dL Creatinine 0.87 (0.70-1.30) mg/dL Glucose 100 (70-105) mg/dL Calcium 8.2 L (8.6-10.3) mg/dL Adrenal panel 01/26/18 Range/Units 05:02 Sodium 130 L (136-145) mEq/L Potassium 3.8 (3.5-5.1) mEq/L Chloride 104 (98-107) mEq/L Carbon Dioxide 22 L (23-29) mEq/L BUN 20 (8-23) mg/dL Creatinine 0.87 (0.70-1.30) mg/dL Glucose 100 (70-105) mg/dL Calcium 8.2 L (8.6-10.3) mg/dL Total Bilirubin 0.7 (0.3-1.0) mg/dL AST 13 (13-39) Units/L ALT 9 (7-52) Units/L Alkaline Phosphatase 45 (34-104) Units/L Albumin 2.7 L (3.5-5.7) g/dL Consult Discharge Plan - Plan Referrals: Brenda Bearden MD [Primary Care Provider] -
[2018-01-26] MEDS: Latanoprost 2.5 ML BOTTLE BOTH EYES SCH (20:59)
[2018-01-27 04:50] LABS: Basophils % 0.1 %; Eosinophils # 0.2 K/mcL (0.0-0.6); Eosinophils % 1.3 %; Hemoglobin 9.5 g/dL (12.9-16.9); Immature Granulocytes % 0.7 % (0-4); Lymphocytes # 1.4 K/mcL (0.6-4.6); Lymphocytes % 9.4 %; Mean Corpuscular HGB Conc 33.9 g/dL (31.6-35.5); Mean Corpuscular Hemoglobin 31.9 pg (28.0-33.3); Mean Platelet Volume 9.2 fL (9.4-12.4); Monocytes % 6.6 %; Neutrophils # 12.4 K/mcL (1.6-8.9); Platelet Count 194 K/mcL (140-400); Red Blood Count 2.98 M/mcL (4.19-5.50); Red Cell Distribution Width 13.4 % (11.5-14.5); Segmented Neutrophils % 81.9 %
[2018-01-27 05:16] LABS: Alanine Aminotransferase 13 Units/L (7-52); Albumin 2.8 g/dL (3.5-5.7); Alkaline Phosphatase 58 Units/L (34-104); Aspartate Amino Transferase 18 Units/L (13-39); BUN/Creatinine Ratio 17 (6-26); Bilirubin,Total 0.6 mg/dL (0.3-1.0); Blood Urea Nitrogen 13 mg/dL (8-23); Calcium 8.4 mg/dL (8.6-10.3); Carbon Dioxide 25 mEq/L (23-29); Chloride 99 mEq/L (98-107); Globulin 2.8 g/dL (2.4-3.5); Glucose 106 mg/dL (70-105); Osmolality,Calculated 271 (280-300); Potassium 3.6 mEq/L (3.5-5.1); Sodium 130 mEq/L (136-145); Total Protein 5.6 g/dL (6.4-8.9); eGFR For Non-African Americans > 60 (> 60)
--- NOTE | 2018-01-27 07:39 | Urology Progress Note ---
Date of Encounter: 01/27/18 Time of Encounter: 07:37 - Assessment and Plan (1) Gross hematuria Current Visit: Yes Status: Acute Assessment and plan: improving. keep catheter in place. (2) Leukocytosis Current Visit: Yes Status: Acute Assessment and plan: likely secondary to UTI. continue broad spec abx until culture return. recommend to keep in hospital for today unless cultures return later today. patient will have f/u with me sunday for catheter removal. Qualifiers: Leukocytosis type: unspecified Qualified Code(s): D72.829 - Elevated white blood cell count, unspecified Progress Note Narrative: patient seen. urine clear on very slow irrigation. + low grade fever. culture Gram + awaiting final sen. Objective Initial Vital Signs Temp Pulse Resp BP Pulse Ox 97.2 F L 93 18 117/79 98 01/25/18 09:22 01/25/18 09:22 01/25/18 09:22 01/25/18 09:22 01/25/18 09:22 - General physical appearance Present: well developed, well nourished - Abdomen Present: soft. Absent: tender - Genitourinary Urine Appearance: Present: Clear - Labs 01/27/18 04:27 01/27/18 04:27 Diabetes panel 01/27/18 Range/Units 04:27 Sodium 130 L (136-145) mEq/L Potassium 3.6 (3.5-5.1) mEq/L Chloride 99 (98-107) mEq/L Carbon Dioxide 25 (23-29) mEq/L BUN 13 (8-23) mg/dL Creatinine 0.75 (0.70-1.30) mg/dL Glucose 106 H (70-105) mg/dL Calcium 8.4 L (8.6-10.3) mg/dL AST 18 (13-39) Units/L ALT 13 (7-52) Units/L Alkaline Phosphatase 58 (34-104) Units/L Albumin 2.8 L (3.5-5.7) g/dL Calcium panel 01/27/18 Range/Units 04:27 Calcium 8.4 L (8.6-10.3) mg/dL Albumin 2.8 L (3.5-5.7) g/dL Pituitary panel 01/27/18 Range/Units 04:27 Sodium 130 L (136-145) mEq/L Potassium 3.6 (3.5-5.1) mEq/L Chloride 99 (98-107) mEq/L Carbon Dioxide 25 (23-29) mEq/L BUN 13 (8-23) mg/dL Creatinine 0.75 (0.70-1.30) mg/dL Glucose 106 H (70-105) mg/dL Calcium 8.4 L (8.6-10.3) mg/dL Adrenal panel 01/27/18 Range/Units 04:27 Sodium 130 L (136-145) mEq/L Potassium 3.6 (3.5-5.1) mEq/L Chloride 99 (98-107) mEq/L Carbon Dioxide 25 (23-29) mEq/L BUN 13 (8-23) mg/dL Creatinine 0.75 (0.70-1.30) mg/dL Glucose 106 H (70-105) mg/dL Calcium 8.4 L (8.6-10.3) mg/dL Total Bilirubin 0.6 (0.3-1.0) mg/dL AST 18 (13-39) Units/L ALT 13 (7-52) Units/L Alkaline Phosphatase 58 (34-104) Units/L Albumin 2.8 L (3.5-5.7) g/dL Consult Discharge Plan - Plan Referrals: Brenda Bearden MD [Primary Care Provider] -
[2018-01-27] MEDS: amLODIPine 5 MG TABLET PO SCH (08:07)
[2018-01-27] MEDS: cefTRIAXone 1,000 MG in Water for inj. (sterile) 20 ML 10 ML IVP SCH (08:08)
--- NOTE | 2018-01-27 08:41 | Internal Med Progress Note ---
<Damion Roberts S - Last Filed: 01/27/18 10:32> Hospitalist Progress Note - Encounter Date of Encounter: 01/27/18 Time of Encounter: 07:30 - Subjective Interval History: Mr. Whitmore is a 77 year old male with PMH of a fib, HTN, and BPH s/p TURP who presented to the ER with c/o blood in his urine He had bloody urine of 1 day w/ subjective chills and fevers, most likely 2/2 UTI. He had dizziness and reportedly hit his head against the toilet, workup of CT head and c-spine was negative. Today the pt is seen at bedside and he reports no complaints. He denies chest pain, N/V/D, abd pain, or SOB. Dr. Marti is seeing and recommends keeping catheter in place. Holding all anticoagulation. On Rocephin for UTI. CT abdomen and pelvis Prominent thickening of the urinary bladder wall with heterogeneous enhancement raises concern for severe cystitis. -High density material in the urinary bladder lumen may be related to excreted contrast and/or blood products. -This corresponds to the history of hematuria - Exam Vitals: Temp Pulse Resp BP Pulse Ox 99.2 F 118 14 147/88 94 01/27/18 06:36 01/27/18 06:36 01/27/18 06:36 01/27/18 06:36 01/27/18 06:36 Exam: general - nad , aox3 cardio - irregularly irregular, normal rate lungs - ctab no wheeze abd - ntnd, no rebound or guarding skin - intact, no rash extremities - no edema - Assessment and Plan (1) Supratherapeutic INR Current Visit: Yes Status: Acute Assessment and Plan: Pt presented to the ER with a 1 day hx of peeing blood, samaniego cath bag is filled with red urine. Reports changing a bag this morning filled with red urine. -pt is s/p TURP for BPH and has indwelling catheter in place PT - 36.2 ---> 24.6 ---> 15.6 INR - 3.2 ---> 2.2 ---> 1.4 FOBT(-) CT head negative for acute intracranial process Initial hemoglobin 12.9 ---> is 9.3 ---> 9.5 Plan: -2.5mg PO vitamin K given on admission -hold Coumadin/aspirin -CHADVASc of 3 -HASBLED of 4 -CBC in the morning -0.9% NS discontinued -vital signs q4hr -continue to monitor clinically -pt to follow up with Dr. Marti in the clinic on sunday for catheter removal. Hold for one more day, pending sensitivities of urine culture (2) Sepsis Current Visit: Yes Status: Resolved Assessment and Plan: On admission pt meets SIRS criteria for HR 100, wbc of 38.7 -has (+) source of infxn as UA Today HR 118, WBC 15.2 (improved from 19.6); still meets sepsis criteria with (+ ) UA as source Urine culture grew gram (+) cocci, pending sensitivites Plan: -repeat CBC in AM -continue rocephin IV -0.9% NS d/c -vital signs q4hr -pt to follow up with Dr. Marti in the clinic on sunday for catheter removal. Hold for one more day, pending sensitivities of urine culture (3) UTI (urinary tract infection) Current Visit: Yes Status: Acute Assessment and Plan: UTI most likely 2/2 to indwelling catheter -pt treated with rocephin in the ER UA showed large amounts of blood (+) nitrite, (+) leukocyte esterase WBC count 38.7, HR 100 --> (+) SIRS criteria with a source as UTI -WBC count today 15.2, improved from 19.6 CT abdomen and pelvis -Prominent thickening of the urinary bladder wall with heterogeneous enhancement raises concern for severe cystitis. High density material in the urinary bladder lumen may be related to excreted contrast and/or blood products. This corresponds to the history of hematuria. Urine culture grew g(+) cocci Plan: -continue rocephin IV -urine culture sensitivities pending (4) Atrial fibrillation with RVR Current Visit: Yes Status: Resolved Assessment and Plan: Pt has hx of chronic A fib since june -currently irregular rhythm -ekg in ER showed a fib with RVR Pt denies chest pain Plan: -continue Lopressor 50mg PO BID ---> increased to 75mg PO BID, HR still elevated. 118 this morning -discontinue warfarin, ASA -CHADVASc of 3, HASBLED of 4 as mentioned above (5) Hypertension Current Visit: No Status: Chronic Assessment and Plan: BP currently 147/88 -on Zestril 40mg PO daily, lopressol 50mg PO BID (increased to 75mg PO BID starting 01/27/18), tamsulosin 0.4mg PO hs -BP low secondary to a fib rvr vs infxn -will restart Zestril 40mg PO daily -continue lopressor -continue tamsulosin if ok with urology (6) Elevated troponin Current Visit: Yes Status: Acute Assessment and Plan: Troponin of 0.06 initially -trended down to 0.05 ---> 0.04 -most likely due to type II (demand ischemia) -pt denies chest pain/palpiltations -EKG shows NO st segment elevation or t wave inversion - Time Spent with Patient Total time spent is greater than 50% in coordination of care (as documented) at patient's floor/unit and/or counseling patient: less than 15 minutes Internal Medicine: Result - Labs CBC & Chem 7: 01/27/18 04:27 01/27/18 04:27 Labs: Short CBC 01/26/18 01/27/18 Range/Units 09:44 04:27 WBC 15.2 H (4.3-11.1) K/mcL Hgb 10.4 L 9.5 L (12.9-16.9) g/dL Hct 30.7 L 28.0 L (37.5-50.1) % Plt Count 194 (140-400) K/mcL Neutrophils # 12.4 H (1.6-8.9) K/mcL BMP 01/27/18 04:27 Sodium 130 L Potassium 3.6 Chloride 99 Carbon Dioxide 25 BUN 13 Creatinine 0.75 Glucose 106 H Calcium 8.4 L Liver Function 01/27/18 Range/Units 04:27 Total Bilirubin 0.6 (0.3-1.0) mg/dL AST 18 (13-39) Units/L ALT 13 (7-52) Units/L Alkaline Phosphatase 58 (34-104) Units/L Albumin 2.8 L (3.5-5.7) g/dL - ABG Interpretation ABG results: PT/INR, D-dimer PT 24.6 Seconds (9.4-12.1) H 01/26/18 05:02 Consult Discharge Plan - Plan Referrals: Brenda Bearden MD [Primary Care Provider] - <Joseph Das - Last Filed: 01/27/18 12:30> Hospitalist Progress Note - Encounter Date of Encounter: 01/27/18 - Exam Vitals: Temp Pulse Resp BP Pulse Ox 100.5 F H 116 14 117/72 96 01/27/18 10:30 01/27/18 10:30 01/27/18 10:30 01/27/18 10:30 01/27/18 10:30 - Assessment and Plan (1) Atrial fibrillation with RVR Current Visit: Yes Status: Resolved (2) Hypertension Current Visit: No Status: Chronic (3) Supratherapeutic INR Current Visit: Yes Status: Acute (4) UTI (urinary tract infection) Current Visit: Yes Status: Acute (5) Sepsis Current Visit: Yes Status: Resolved (6) Elevated troponin Current Visit: Yes Status: Acute - Time Spent with Patient Total time spent is greater than 50% in coordination of care (as documented) at patient's floor/unit and/or counseling patient: Internal Medicine: Result - Labs CBC & Chem 7: 01/27/18 04:27 01/27/18 04:27 Labs: Short CBC 01/27/18 Range/Units 04:27 WBC 15.2 H (4.3-11.1) K/mcL Hgb 9.5 L (12.9-16.9) g/dL Hct 28.0 L (37.5-50.1) % Plt Count 194 (140-400) K/mcL Neutrophils # 12.4 H (1.6-8.9) K/mcL BMP 01/27/18 04:27 Sodium 130 L Potassium 3.6 Chloride 99 Carbon Dioxide 25 BUN 13 Creatinine 0.75 Glucose 106 H Calcium 8.4 L Liver Function 01/27/18 Range/Units 04:27 Total Bilirubin 0.6 (0.3-1.0) mg/dL AST 18 (13-39) Units/L ALT 13 (7-52) Units/L Alkaline Phosphatase 58 (34-104) Units/L Albumin 2.8 L (3.5-5.7) g/dL - ABG Interpretation ABG results: PT/INR, D-dimer PT 15.6 Seconds (9.4-12.1) H 01/27/18 09:09 - Attending Attestation I have seen and examined this patient independently. I have discussed with resident physician Dr. Roberts regarding the management plan. Agree with the documentation. <Damion Roberts - Last Filed: 01/27/18 10:32> (2) Sepsis Qualifiers: Sepsis type: sepsis due to unspecified organism Qualified Code(s): A41.9 - Sepsis, unspecified organism (3) UTI (urinary tract infection) Qualifiers: Urinary tract infection type: catheter-associated UTI Indwelling urinary catheter type: indwelling urethral catheter Encounter type: initial encounter Qualified Code(s): T83.511A - Infection and inflammatory reaction due to indwelling urethral catheter, initial encounter; N39.0 - Urinary tract infection , site not specified (5) Hypertension Qualifiers: Hypertension type: essential hypertension Qualified Code(s): I10 - Essential (primary) hypertension <Joseph Das - Last Filed: 01/27/18 12:30> (2) Hypertension Qualifiers: Hypertension type: essential hypertension Qualified Code(s): I10 - Essential (primary) hypertension (4) UTI (urinary tract infection) Qualifiers: Urinary tract infection type: catheter-associated UTI Indwelling urinary catheter type: indwelling urethral catheter Encounter type: initial encounter Qualified Code(s): T83.511A - Infection and inflammatory reaction due to indwelling urethral catheter, initial encounter; N39.0 - Urinary tract infection , site not specified (5) Sepsis Qualifiers: Sepsis type: sepsis due to unspecified organism Qualified Code(s): A41.9 - Sepsis, unspecified organism
[2018-01-27] MEDS ORDERED: Lisinopril 20 MG TABLET PO SCH (09:00)
[2018-01-27 09:50] LABS: INR 1.4; Prothrombin Time 15.6 Seconds (9.4-12.1)
--- NOTE | 2018-01-27 14:28 | Event Note ---
Date of Encounter: 01/27/18 Time of Encounter: 14:00 Pt is more lethargic this afternoon, with a fever. See patient at bedside. Patient is weak. On exam, lungs are clear, abdominal is soft nontender. No leg swelling. Urine culture preliminary result shows staph auraus, sensitivity is pending. We will obtain blood culture as patient has fever. Will change antibiotic to vancomycin. Will give patient IVF and check lactate acid.
[2018-01-27] MEDS: Acetaminophen 325 MG TABLET PO PRN (14:42)
[2018-01-27] MEDS: 0.9 % Sodium Chloride 1,000 ML IVC SCH (14:48)
[2018-01-27] MEDS: *HR* Metoprolol 5 MG/5 ML VIAL IVP PRN (14:49)
--- NOTE | 2018-01-27 16:27 | Electrocardiograph Report ---
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
[2018-01-27] MEDS ORDERED: 0.9 % Sodium Chloride 1,000 ML IVC ONE (17:30)
[2018-01-28] MEDS: Acetaminophen 325 MG TABLET PO PRN ×2 (00:18→14:40)
[2018-01-28] MEDS: 0.9 % Sodium Chloride 1,000 ML IVC SCH ×2 (01:40→12:10)
[2018-01-28 03:39] LABS: Basophils % 0.1 %; Eosinophils % 0.2 %; Hematocrit 26.3 % (37.5-50.1); Hemoglobin 8.9 g/dL (12.9-16.9); Lymphocytes # 1.4 K/mcL (0.6-4.6); Lymphocytes % 8.8 %; Mean Corpuscular HGB Conc 33.8 g/dL (31.6-35.5); Mean Corpuscular Hemoglobin 32.2 pg (28.0-33.3); Mean Corpuscular Volume 95.3 fL (83.0-100.0); Mean Platelet Volume 9.4 fL (9.4-12.4); Monocytes # 1.3 K/mcL (0.0-1.3); Monocytes % 8.4 %; Neutrophils # 12.4 K/mcL (1.6-8.9); Platelet Count 201 K/mcL (140-400); Red Blood Count 2.76 M/mcL (4.19-5.50); Red Cell Distribution Width 13.2 % (11.5-14.5); Segmented Neutrophils % 81.5 %
[2018-01-28 03:56] LABS: BUN/Creatinine Ratio 13 (6-26); Blood Urea Nitrogen 11 mg/dL (8-23); Calcium 8.3 mg/dL (8.6-10.3); Carbon Dioxide 24 mEq/L (23-29); Chloride 101 mEq/L (98-107); Glucose 118 mg/dL (70-105); Osmolality,Calculated 272 (280-300); Potassium 3.6 mEq/L (3.5-5.1); Sodium 131 mEq/L (136-145); eGFR For Non-African Americans > 60 (> 60)
[2018-01-28] MEDS: amLODIPine 5 MG TABLET PO SCH (07:51)
[2018-01-28] MEDS: Latanoprost 2.5 ML BOTTLE BOTH EYES SCH ×2 (08:13→21:58)
--- NOTE | 2018-01-28 08:44 | Internal Med Progress Note ---
<Damion Roberts S - Last Filed: 01/28/18 10:58> Hospitalist Progress Note - Encounter Date of Encounter: 01/28/18 Time of Encounter: 08:20 - Subjective Interval History: Mr. Whitmore is a 77 year old male with PMH of a fib, HTN, and BPH s/p TURP who presented to the ER with c/o blood in his urine He had bloody urine of 1 day w/ subjective chills and fevers, most likely 2/2 UTI. He had dizziness and reportedly hit his head against the toilet, workup of CT head and c-spine was negative. Today the pt is seen at bedside and he reports no complaints. Dr. Marti is seeing and recommends keeping catheter in place. Holding all anticoagulation. CT abdomen and pelvis Prominent thickening of the urinary bladder wall with heterogeneous enhancement raises concern for severe cystitis. -High density material in the urinary bladder lumen may be related to excreted contrast and/or blood products. -This corresponds to the history of hematuria Cultures grew gram (+) cocci. Added vancomycin to rocephin. -yesterday pt became more lethargic in the afternoon with a fever. Pt still feels very weak and feverish. He continues to have no complaints of chest pain, SOB, cough, abd pain or N/V/D. Pt isn't ambulating and feels like he can hardly move around. Knees very swollen. -pt had fevers overnight. Tmax of 100.5 - Exam Vitals: Temp Pulse Resp BP Pulse Ox 99.3 F 60 16 119/76 96 01/28/18 06:48 01/28/18 06:48 01/28/18 06:48 01/28/18 06:48 01/28/18 06:48 Exam: general - nad , aox3 cardio - irregularly irregular, normal rate lungs - ctab no wheeze abd - ntnd, no rebound or guarding skin - intact, no rash extremities - no edema LE, knees are swollen bilaterally - Assessment and Plan (1) Supratherapeutic INR Current Visit: Yes Status: Resolved Assessment and Plan: Pt presented to the ER with a 1 day hx of peeing blood, samaniego cath bag is filled with red urine. Reports changing a bag this morning filled with red urine. -pt is s/p TURP for BPH and has indwelling catheter in place PT - 36.2 ---> 24.6 ---> 15.6 INR - 3.2 ---> 2.2 ---> 1.4 FOBT(-) CT head negative for acute intracranial process Initial hemoglobin 12.9 ---> is 9.3 ---> 9.5 ---> hemoglobin 01/28/18 is 8.9 Plan: -2.5mg PO vitamin K given on admission -hold Coumadin/aspirin -CHADVASc of 3 -HASBLED of 4 -0.9% NS 100cc/hr -vital signs q4hr -continue to monitor clinically -pt to follow up with Dr. Marti in the clinic on sunday for catheter removal. Hold for one more day, pending sensitivities of urine culture -check BC in the morning (2) Sepsis Current Visit: Yes Status: Acute Assessment and Plan: On admission pt meets SIRS criteria for HR 100, wbc of 38.7 -has (+) source of infxn as UA Today HR 99, WBC 15.3 (improved from 19.6); still meets sepsis criteria with (+ ) UA as source Urine culture grew gram (+) cocci, pending sensitivites -assumed to be MRSA by PBP2A detection Lactic acid of 1.4 Pt still has c/o weakness, feeling feverish overnight -clammy on exam Plan: -repeat CBC in AM -discontinue rocephin IV , -vancomycin added 01/27/18 -0.9% NS 100cc/hr -vital signs q4hr -blood cx pending -pt to follow up with Dr. Marti in the clinic on sunday for catheter removal. Hold for one more day, pending sensitivities of urine culture (3) UTI (urinary tract infection) Current Visit: Yes Status: Acute Assessment and Plan: UTI most likely 2/2 to indwelling catheter -pt treated with rocephin in the ER UA showed large amounts of blood (+) nitrite, (+) leukocyte esterase WBC count 38.7, HR 100 on admission --> (+) SIRS criteria with a source as UTI -WBC count today 15.3, improved from 19.6 CT abdomen and pelvis -Prominent thickening of the urinary bladder wall with heterogeneous enhancement raises concern for severe cystitis. High density material in the urinary bladder lumen may be related to excreted contrast and/or blood products. This corresponds to the history of hematuria. Urine culture grew g(+) cocci, presumed to be MRSA -sensitivities still pending Plan: -discontinue rocephin IV - vancomycin IV started 01/27/18 -urine culture sensitivities pending -blood cultures pending (4) Atrial fibrillation with RVR Current Visit: Yes Status: Resolved Assessment and Plan: Pt has hx of chronic A fib since june -currently irregular rhythm -ekg in ER showed a fib with RVR Pt denies chest pain Plan: -continue Lopressor 50mg PO BID ---> increased to 75mg PO BID, HR still elevated. 99 this morning -discontinue warfarin, ASA -CHADVASc of 3, HASBLED of 4 as mentioned above (5) Hypertension Current Visit: No Status: Chronic Assessment and Plan: BP currently 108/67 -on Zestril 40mg PO daily, lopressol 50mg PO BID (increased to 75mg PO BID starting 01/27/18), tamsulosin 0.4mg PO hs -BP low secondary to a fib rvr vs infxn -will contineu to hold Zestril 40mg PO daily -continue lopressor -continue tamsulosin if ok with urology (6) Elevated troponin Current Visit: Yes Status: Acute Assessment and Plan: Troponin of 0.06 initially -trended down to 0.05 ---> 0.04 -most likely due to type II (demand ischemia) -pt denies chest pain/palpiltations -EKG shows NO st segment elevation or t wave inversion DVT Prophylaxis: SCDs - Time Spent with Patient Total time spent is greater than 50% in coordination of care (as documented) at patient's floor/unit and/or counseling patient: less than 15 minutes Plan of Care Discussed with: patient Internal Medicine: Result - Labs CBC & Chem 7: 01/28/18 03:04 01/28/18 03:04 Labs: Short CBC 01/28/18 Range/Units 03:04 WBC 15.3 H (4.3-11.1) K/mcL Hgb 8.9 L (12.9-16.9) g/dL Hct 26.3 L (37.5-50.1) % Plt Count 201 (140-400) K/mcL Neutrophils # 12.4 H (1.6-8.9) K/mcL BMP 01/28/18 03:04 Sodium 131 L Potassium 3.6 Chloride 101 Carbon Dioxide 24 BUN 11 Creatinine 0.84 Glucose 118 H Calcium 8.3 L - ABG Interpretation ABG results: PT/INR, D-dimer PT 15.6 Seconds (9.4-12.1) H 01/27/18 09:09 - Impressions Impressions Chest X-Ray 01/27/18 14:30 IMPRESSION: No acute findings. D/ / 01/27/2018 15:53:26 Marquez Jones MD / [email or web address] Interpreting Provider: Marquez Jones MD Consult Discharge Plan - Plan Referrals: Brenda Bearden MD [Primary Care Provider] - <DasJoseph - Last Filed: 01/28/18 11:51> Hospitalist Progress Note - Encounter Date of Encounter: 01/28/18 - Exam Vitals: Temp Pulse Resp BP Pulse Ox 97.7 F 102 16 108/73 97 01/28/18 10:00 01/28/18 10:00 01/28/18 10:00 01/28/18 10:00 01/28/18 10:00 - Assessment and Plan (1) Atrial fibrillation with RVR Current Visit: Yes Status: Resolved (2) Hypertension Current Visit: No Status: Chronic (3) Supratherapeutic INR Current Visit: Yes Status: Resolved (4) UTI (urinary tract infection) Current Visit: Yes Status: Acute (5) Sepsis Current Visit: Yes Status: Acute (6) Elevated troponin Current Visit: Yes Status: Acute - Time Spent with Patient Total time spent is greater than 50% in coordination of care (as documented) at patient's floor/unit and/or counseling patient: Internal Medicine: Result - Labs CBC & Chem 7: 01/28/18 03:04 01/28/18 03:04 Labs: Short CBC 01/28/18 Range/Units 03:04 WBC 15.3 H (4.3-11.1) K/mcL Hgb 8.9 L (12.9-16.9) g/dL Hct 26.3 L (37.5-50.1) % Plt Count 201 (140-400) K/mcL Neutrophils # 12.4 H (1.6-8.9) K/mcL BMP 01/28/18 03:04 Sodium 131 L Potassium 3.6 Chloride 101 Carbon Dioxide 24 BUN 11 Creatinine 0.84 Glucose 118 H Calcium 8.3 L - ABG Interpretation ABG results: PT/INR, D-dimer PT 15.6 Seconds (9.4-12.1) H 01/27/18 09:09 - Impressions Impressions Chest X-Ray 01/27/18 14:30 IMPRESSION: No acute findings. D/ / 01/27/2018 15:53:26 Marquez Jones MD / juan carlos Interpreting Provider: Marquez Jones MD - Attending Attestation I have seen and examined this patient independently. I have discussed with resident physician Dr. Roberts regarding the management plan. Agree with the documentation. <Damion Roberts S - Last Filed: 01/28/18 10:58> (2) Sepsis Qualifiers: Sepsis type: sepsis due to unspecified organism Qualified Code(s): A41.9 - Sepsis, unspecified organism (3) UTI (urinary tract infection) Qualifiers: Urinary tract infection type: catheter-associated UTI Indwelling urinary catheter type: indwelling urethral catheter Encounter type: initial encounter Qualified Code(s): T83.511A - Infection and inflammatory reaction due to indwelling urethral catheter, initial encounter; N39.0 - Urinary tract infection , site not specified (5) Hypertension Qualifiers: Hypertension type: essential hypertension Qualified Code(s): I10 - Essential (primary) hypertension <Joseph Das - Last Filed: 01/28/18 11:51> (2) Hypertension Qualifiers: Hypertension type: essential hypertension Qualified Code(s): I10 - Essential (primary) hypertension (4) UTI (urinary tract infection) Qualifiers: Urinary tract infection type: catheter-associated UTI Indwelling urinary catheter type: indwelling urethral catheter Encounter type: initial encounter Qualified Code(s): T83.511A - Infection and inflammatory reaction due to indwelling urethral catheter, initial encounter; N39.0 - Urinary tract infection , site not specified (5) Sepsis Qualifiers: Sepsis type: sepsis due to unspecified organism Qualified Code(s): A41.9 - Sepsis, unspecified organism
--- NOTE | 2018-01-28 08:56 | Urology Progress Note ---
Date of Encounter: 01/28/18 Time of Encounter: 08:54 - Assessment and Plan (1) Gross hematuria Current Visit: Yes Status: Acute Assessment and plan: resolved at this time. (2) Leukocytosis Current Visit: Yes Status: Acute Qualifiers: Leukocytosis type: unspecified Qualified Code(s): D72.829 - Elevated white blood cell count, unspecified (3) UTI (urinary tract infection) Current Visit: Yes Status: Acute Assessment and plan: continue abx per primary team. agree with vanc until culture return with sen. Qualifiers: Urinary tract infection type: catheter-associated UTI Indwelling urinary catheter type: indwelling urethral catheter Encounter type: initial encounter Qualified Code(s): T83.511A - Infection and inflammatory reaction due to indwelling urethral catheter, initial encounter; N39.0 - Urinary tract infection , site not specified Progress Note Narrative: patient seen. + staph Uti. sen pending. feeling ok. urine clear Objective Initial Vital Signs Temp Pulse Resp BP Pulse Ox 97.2 F L 93 18 117/79 98 01/25/18 09:22 01/25/18 09:22 01/25/18 09:22 01/25/18 09:22 01/25/18 09:22 - General physical appearance Present: well developed, well nourished - Abdomen Present: soft. Absent: tender - Genitourinary Urine Appearance: Present: Clear - Labs 01/28/18 03:04 01/28/18 03:04 Diabetes panel 01/28/18 Range/Units 03:04 Sodium 131 L (136-145) mEq/L Potassium 3.6 (3.5-5.1) mEq/L Chloride 101 (98-107) mEq/L Carbon Dioxide 24 (23-29) mEq/L BUN 11 (8-23) mg/dL Creatinine 0.84 (0.70-1.30) mg/dL Glucose 118 H (70-105) mg/dL Calcium 8.3 L (8.6-10.3) mg/dL Calcium panel 01/28/18 Range/Units 03:04 Calcium 8.3 L (8.6-10.3) mg/dL Pituitary panel 01/28/18 Range/Units 03:04 Sodium 131 L (136-145) mEq/L Potassium 3.6 (3.5-5.1) mEq/L Chloride 101 (98-107) mEq/L Carbon Dioxide 24 (23-29) mEq/L BUN 11 (8-23) mg/dL Creatinine 0.84 (0.70-1.30) mg/dL Glucose 118 H (70-105) mg/dL Calcium 8.3 L (8.6-10.3) mg/dL Adrenal panel 01/28/18 Range/Units 03:04 Sodium 131 L (136-145) mEq/L Potassium 3.6 (3.5-5.1) mEq/L Chloride 101 (98-107) mEq/L Carbon Dioxide 24 (23-29) mEq/L BUN 11 (8-23) mg/dL Creatinine 0.84 (0.70-1.30) mg/dL Glucose 118 H (70-105) mg/dL Calcium 8.3 L (8.6-10.3) mg/dL Consult Discharge Plan - Plan Referrals: Brenda Bearden MD [Primary Care Provider] -
[2018-01-28] MEDS ORDERED: cefTRIAXone 2,000 MG in Water for inj. (sterile) 20 ML 20 ML IVP SCH (09:00)
[2018-01-28] MEDS: *HR* Metoprolol 5 MG/5 ML VIAL IVP PRN (17:40)
[2018-01-28] MEDS: Metoprolol 100 MG TABLET PO SCH (21:57)
[2018-01-29] MEDS: Acetaminophen 325 MG TABLET PO PRN (00:13)
[2018-01-29 02:40] LABS: Basophils % 0.2 %; Eosinophils # 0.1 K/mcL (0.0-0.6); Eosinophils % 1.2 %; Hematocrit 25.7 % (37.5-50.1); Hemoglobin 8.9 g/dL (12.9-16.9); Immature Granulocytes % 1.1 % (0-4); Lymphocytes # 1.3 K/mcL (0.6-4.6); Lymphocytes % 10.9 %; Mean Corpuscular HGB Conc 34.6 g/dL (31.6-35.5); Mean Corpuscular Hemoglobin 32.4 pg (28.0-33.3); Mean Corpuscular Volume 93.5 fL (83.0-100.0); Mean Platelet Volume 9.5 fL (9.4-12.4); Monocytes # 1.2 K/mcL (0.0-1.3); Monocytes % 10.4 %; Neutrophils # 9.1 K/mcL (1.6-8.9); Platelet Count 224 K/mcL (140-400); Red Blood Count 2.75 M/mcL (4.19-5.50); Red Cell Distribution Width 13.2 % (11.5-14.5); Segmented Neutrophils % 76.2 %
[2018-01-29 02:57] LABS: Alanine Aminotransferase 15 Units/L (7-52); Albumin 2.6 g/dL (3.5-5.7); Alkaline Phosphatase 58 Units/L (34-104); Aspartate Amino Transferase 19 Units/L (13-39); BUN/Creatinine Ratio 22 (6-26); Bilirubin,Total 0.4 mg/dL (0.3-1.0); Blood Urea Nitrogen 16 mg/dL (8-23); Carbon Dioxide 20 mEq/L (23-29); Chloride 101 mEq/L (98-107); Globulin 2.7 g/dL (2.4-3.5); Glucose 113 mg/dL (70-105); Osmolality,Calculated 260 (280-300); Sodium 124 mEq/L (136-145); Total Protein 5.3 g/dL (6.4-8.9); eGFR For Non-African Americans > 60 (> 60)
[2018-01-29] MEDS: 0.9 % Sodium Chloride 1,000 ML IVC SCH (03:32)
[2018-01-29] MEDS ORDERED: Potassium Chloride 40 MEQ, Lidocaine 1% 2 ML in D5% in Water 500 ML IVPB ONE (07:21)
[2018-01-29] MEDS: Metoprolol 100 MG TABLET PO SCH ×2 (08:36→21:11)
[2018-01-29] MEDS: amLODIPine 5 MG TABLET PO SCH (08:36)
--- NOTE | 2018-01-29 08:54 | Internal Med Progress Note ---
<Damion Roberts S - Last Filed: 01/29/18 09:57> Hospitalist Progress Note - Encounter Date of Encounter: 01/29/18 Time of Encounter: 08:51 - Subjective Interval History: Mr. Whitmore is a 77 year old male with PMH of a fib, HTN, and BPH s/p TURP who presented to the ER with c/o blood in his urine He had bloody urine of 1 day w/ subjective chills and fevers, most likely 2/2 UTI. He had dizziness and reportedly hit his head against the toilet, workup of CT head and c-spine was negative. Today the pt is seen at bedside and he reports no complaints. Dr. Marti is seeing and recommends keeping catheter in place. Holding all anticoagulation. CT abdomen and pelvis Prominent thickening of the urinary bladder wall with heterogeneous enhancement raises concern for severe cystitis. -High density material in the urinary bladder lumen may be related to excreted contrast and/or blood products. -This corresponds to the history of hematuria Cultures grew gram (+) cocci. Added vancomycin to rocephin. -yesterday pt became more lethargic in the afternoon with a fever. He continues to have no complaints of chest pain, SOB, cough, abd pain or N/V/D. Pt isn't ambulating and feels like he can hardly move around. Knees very swollen. -pt had fevers overnight on 01/28/18. Tmax of 100.5 -pt still having weekness and feeling feverish, no overnight fevers -urine is back to yellow, no blood seen in bag - Exam Vitals: Temp Pulse Resp BP Pulse Ox 97.9 F 92 14 114/71 93 01/29/18 07:54 01/29/18 07:54 01/29/18 07:54 01/29/18 07:54 01/29/18 07:54 Exam: general - nad , aox3 cardio - irregularly irregular, normal rate lungs - ctab no wheeze abd - ntnd, no rebound or guarding skin - intact, no rash extremities - no edema LE, knees are swollen bilaterally - Assessment and Plan (1) Supratherapeutic INR Current Visit: Yes Status: Resolved Assessment and Plan: Pt presented to the ER with a 1 day hx of peeing blood, samaniego cath bag is filled with red urine. Reports changing a bag this morning filled with red urine. -pt is s/p TURP for BPH and has indwelling catheter in place PT - 36.2 ---> 24.6 ---> 15.6 INR - 3.2 ---> 2.2 ---> 1.4 FOBT(-) CT head negative for acute intracranial process Initial hemoglobin 12.9 ---> is 9.3 ---> 9.5 ---> hemoglobin 01/28/18 and 01/29/18 is 8.9 Plan: -2.5mg PO vitamin K given on admission -hold Coumadin/aspirin -CHADVASc of 3 -HASBLED of 4 -0.9% NS 100cc/hr discontinued -vital signs q4hr -continue to monitor clinically -pt to follow up with Dr. Marti in the clinic on sunday for catheter removal. Hold for one more day, pending sensitivities of urine culture -check CBC in the morning -recheck CMP in AM (2) Sepsis Current Visit: Yes Status: Acute Assessment and Plan: On admission pt meets SIRS criteria for HR 100, wbc of 38.7 -has (+) source of infxn as UA Today HR 92, WBC 11.9 (improved from 38.7 ---> 19.6); still meets sepsis criteria with (+) UA as source Urine culture grew gram (+) cocci -assumed to be MRSA by PBP2A detection -sensitive to Vanc, Linezolid, gentamycin, nitrofurantoin, tetracyclin, bactrim -resistant to cipro, levoflox, and oxacilin Lactic acid of 1.4 Pt still has c/o weakness, feeling feverish overnight. No recorded overnight fevers -clammy on exam Plan: -repeat CBC in AM -discontinue rocephin IV , -vancomycin added 01/27/18 -0.9% NS 100cc/hr discontinued due to hyponatremia -vital signs q4hr -blood cx pending -pt to follow up with Dr. Marti in the clinic on sunday for catheter removal. Hold for one more day, pending sensitivities of urine culture (3) Elevated troponin Current Visit: Yes Status: Acute Assessment and Plan: Troponin of 0.06 initially -trended down to 0.05 ---> 0.04 -most likely due to type II (demand ischemia) -pt denies chest pain/palpiltations -EKG shows NO st segment elevation or t wave inversion (4) UTI (urinary tract infection) Current Visit: Yes Status: Acute Assessment and Plan: UTI most likely 2/2 to indwelling catheter -pt treated with rocephin in the ER UA showed large amounts of blood (+) nitrite, (+) leukocyte esterase WBC count 38.7, HR 100 on admission --> (+) SIRS criteria with a source as UTI -WBC count today 15.3, improved from 19.6 CT abdomen and pelvis -Prominent thickening of the urinary bladder wall with heterogeneous enhancement raises concern for severe cystitis. High density material in the urinary bladder lumen may be related to excreted contrast and/or blood products. This corresponds to the history of hematuria. Urine culture grew g(+) cocci, presumed to be MRSA -assumed to be MRSA by PBP2A detection -sensitive to Vanc, Linezolid, gentamycin, nitrofurantoin, tetracyclin, bactrim -resistant to cipro, levoflox, and oxacilin Plan: -discontinue rocephin IV - vancomycin IV started 01/27/18 -blood cultures pending (5) Atrial fibrillation with RVR Current Visit: Yes Status: Resolved Assessment and Plan: Pt has hx of chronic A fib since june -currently irregular rhythm -ekg in ER showed a fib with RVR Pt denies chest pain Plan: -continue Lopressor 50mg PO BID ---> increased to 75mg PO BID, HR still elevated. 92 this morning -discontinue warfarin, ASA -CHADVASc of 3, HASBLED of 4 as mentioned above (6) Hypertension Current Visit: No Status: Chronic Assessment and Plan: BP currently 114/71 -on Zestril 40mg PO daily, lopressol 50mg PO BID (increased to 75mg PO BID starting 01/27/18), tamsulosin 0.4mg PO hs -BP low secondary to a fib rvr vs infxn -will contineu to hold Zestril 40mg PO daily -continue lopressor -continue tamsulosin if ok with urology (7) Hypokalemia Current Visit: Yes Status: Acute Assessment and Plan: Potassium this morning was 3.0 -ordered 40meq of potassium chloride IVPB -recheck potassium in afternoon -recheck potassium in AM (8) Hyponatremia Current Visit: Yes Status: Acute Assessment and Plan: Pt is hyponatremic at baseline -this morning Na is 124 -baseline appears to be mid 120's -will monitor clinically, pt reports no s/s at this time -d/c 0.9% NS -recheck CMP in AM DVT Prophylaxis: SCD - Time Spent with Patient Total time spent is greater than 50% in coordination of care (as documented) at patient's floor/unit and/or counseling patient: less than 15 minutes Plan of Care Discussed with: patient Internal Medicine: Result - Labs CBC & Chem 7: 01/29/18 02:13 01/29/18 02:13 Labs: Short CBC 01/29/18 Range/Units 02:13 WBC 11.9 H (4.3-11.1) K/mcL Hgb 8.9 L (12.9-16.9) g/dL Hct 25.7 L (37.5-50.1) % Plt Count 224 (140-400) K/mcL Neutrophils # 9.1 H (1.6-8.9) K/mcL BMP 01/29/18 02:13 Sodium 124 L Potassium 3.0 L Chloride 101 Carbon Dioxide 20 L BUN 16 Creatinine 0.73 Glucose 113 H Calcium 8.0 L Liver Function 01/29/18 Range/Units 02:13 Total Bilirubin 0.4 (0.3-1.0) mg/dL AST 19 (13-39) Units/L ALT 15 (7-52) Units/L Alkaline Phosphatase 58 (34-104) Units/L Albumin 2.6 L (3.5-5.7) g/dL - ABG Interpretation ABG results: PT/INR, D-dimer PT 15.6 Seconds (9.4-12.1) H 01/27/18 09:09 Consult Discharge Plan - Plan Referrals: Brenda Bearden MD [Primary Care Provider] - <Dylan Guerra - Last Filed: 01/29/18 14:04> Hospitalist Progress Note - Encounter Date of Encounter: 01/29/18 - Exam Vitals: Temp Pulse Resp BP Pulse Ox 98.1 F 106 15 116/77 91 01/29/18 10:35 01/29/18 10:35 01/29/18 10:35 01/29/18 10:35 01/29/18 10:35 - Assessment and Plan (1) Atrial fibrillation with RVR Current Visit: Yes Status: Resolved (2) Hypertension Current Visit: No Status: Chronic (3) Supratherapeutic INR Current Visit: Yes Status: Resolved (4) UTI (urinary tract infection) Current Visit: Yes Status: Acute (5) Sepsis Current Visit: Yes Status: Acute (6) Elevated troponin Current Visit: Yes Status: Acute (7) Hypokalemia Current Visit: Yes Status: Acute (8) Hyponatremia Current Visit: Yes Status: Acute - Time Spent with Patient Total time spent is greater than 50% in coordination of care (as documented) at patient's floor/unit and/or counseling patient: Internal Medicine: Result - Labs CBC & Chem 7: 01/29/18 02:13 01/29/18 02:13 Labs: Short CBC 01/29/18 Range/Units 02:13 WBC 11.9 H (4.3-11.1) K/mcL Hgb 8.9 L (12.9-16.9) g/dL Hct 25.7 L (37.5-50.1) % Plt Count 224 (140-400) K/mcL Neutrophils # 9.1 H (1.6-8.9) K/mcL BMP 01/29/18 02:13 Sodium 124 L Potassium 3.0 L Chloride 101 Carbon Dioxide 20 L BUN 16 Creatinine 0.73 Glucose 113 H Calcium 8.0 L Liver Function 01/29/18 Range/Units 02:13 Total Bilirubin 0.4 (0.3-1.0) mg/dL AST 19 (13-39) Units/L ALT 15 (7-52) Units/L Alkaline Phosphatase 58 (34-104) Units/L Albumin 2.6 L (3.5-5.7) g/dL - ABG Interpretation ABG results: PT/INR, D-dimer PT 15.6 Seconds (9.4-12.1) H 01/27/18 09:09 - Attending Attestation I examined this patient and my medical decision-making was reviewed with the Resident Physician Dr. Roberts. I agree with the documented findings, disposition and treatment plan as described except to the extent set forth below. Mr. Whitmore is a 77 year old male with PMH of a fib, HTN, and BPH s/p recent TURP who presented to the ER with hematuria. Pt was on coumadin for anti coag, his Coumadin and ASA was held and started on CBI, also placed him on empirical abx in suspect of UTI. His urine cx grew MRSA. He is alert, awake and o x 3.. States he is feeling better today. Chest: Diminished BS b/l, no crackles, no rales Heart: S1S2+ RRR No murmurs a/p 1. Acute hematuria 2. Acute MRSA UTI cont Vanc Improved hematuria CBI as per urology recommendations cont holding ASA and Coumadin.. Will resume them depending on Dr. Marti's recommendations 3. Hyponatremia Looks euvolemic cont close monitoring of Na for now will start hyponatremia work up <Damion Roberts - Last Filed: 01/29/18 09:57> (2) Sepsis Qualifiers: Sepsis type: sepsis due to unspecified organism Qualified Code(s): A41.9 - Sepsis, unspecified organism (4) UTI (urinary tract infection) Qualifiers: Urinary tract infection type: catheter-associated UTI Indwelling urinary catheter type: indwelling urethral catheter Encounter type: initial encounter Qualified Code(s): T83.511A - Infection and inflammatory reaction due to indwelling urethral catheter, initial encounter; N39.0 - Urinary tract infection , site not specified (6) Hypertension Qualifiers: Hypertension type: essential hypertension Qualified Code(s): I10 - Essential (primary) hypertension <Dylan Guerra - Last Filed: 01/29/18 14:04> (2) Hypertension Qualifiers: Hypertension type: essential hypertension Qualified Code(s): I10 - Essential (primary) hypertension (4) UTI (urinary tract infection) Qualifiers: Urinary tract infection type: catheter-associated UTI Indwelling urinary catheter type: indwelling urethral catheter Encounter type: initial encounter Qualified Code(s): T83.511A - Infection and inflammatory reaction due to indwelling urethral catheter, initial encounter; N39.0 - Urinary tract infection , site not specified (5) Sepsis Qualifiers: Sepsis type: sepsis due to unspecified organism Qualified Code(s): A41.9 - Sepsis, unspecified organism
--- NOTE | 2018-01-29 13:14 | Urology Progress Note ---
Date of Encounter: 01/29/18 Time of Encounter: 13:13 - Assessment and Plan (1) Gross hematuria Current Visit: Yes Status: Acute Assessment and plan: Resolved. Patient to keep catheter until this Sunday. Appointment will be made for patient. (2) Leukocytosis Current Visit: Yes Status: Acute Qualifiers: Leukocytosis type: unspecified Qualified Code(s): D72.829 - Elevated white blood cell count, unspecified (3) UTI (urinary tract infection) Current Visit: Yes Status: Acute Assessment and plan: Treatment per primary team. Qualifiers: Urinary tract infection type: catheter-associated UTI Indwelling urinary catheter type: indwelling urethral catheter Encounter type: initial encounter Qualified Code(s): T83.511A - Infection and inflammatory reaction due to indwelling urethral catheter, initial encounter; N39.0 - Urinary tract infection , site not specified Progress Note Narrative: Patient seen this morning. Patient found to have MRSA UTI. Objective Initial Vital Signs Temp Pulse Resp BP Pulse Ox 97.2 F L 93 18 117/79 98 01/25/18 09:22 01/25/18 09:22 01/25/18 09:22 01/25/18 09:22 01/25/18 09:22 - General physical appearance Present: well developed, well nourished - Respiratory Present: normal expansion - Abdomen Present: soft. Absent: tender - Genitourinary Urine Appearance: Present: Clear - Labs 01/29/18 02:13 01/29/18 02:13 Diabetes panel 01/29/18 Range/Units 02:13 Sodium 124 L (136-145) mEq/L Potassium 3.0 L (3.5-5.1) mEq/L Chloride 101 (98-107) mEq/L Carbon Dioxide 20 L (23-29) mEq/L BUN 16 (8-23) mg/dL Creatinine 0.73 (0.70-1.30) mg/dL Glucose 113 H (70-105) mg/dL Calcium 8.0 L (8.6-10.3) mg/dL AST 19 (13-39) Units/L ALT 15 (7-52) Units/L Alkaline Phosphatase 58 (34-104) Units/L Albumin 2.6 L (3.5-5.7) g/dL Calcium panel 01/29/18 Range/Units 02:13 Calcium 8.0 L (8.6-10.3) mg/dL Albumin 2.6 L (3.5-5.7) g/dL Pituitary panel 01/29/18 Range/Units 02:13 Sodium 124 L (136-145) mEq/L Potassium 3.0 L (3.5-5.1) mEq/L Chloride 101 (98-107) mEq/L Carbon Dioxide 20 L (23-29) mEq/L BUN 16 (8-23) mg/dL Creatinine 0.73 (0.70-1.30) mg/dL Glucose 113 H (70-105) mg/dL Calcium 8.0 L (8.6-10.3) mg/dL Adrenal panel 01/29/18 Range/Units 02:13 Sodium 124 L (136-145) mEq/L Potassium 3.0 L (3.5-5.1) mEq/L Chloride 101 (98-107) mEq/L Carbon Dioxide 20 L (23-29) mEq/L BUN 16 (8-23) mg/dL Creatinine 0.73 (0.70-1.30) mg/dL Glucose 113 H (70-105) mg/dL Calcium 8.0 L (8.6-10.3) mg/dL Total Bilirubin 0.4 (0.3-1.0) mg/dL AST 19 (13-39) Units/L ALT 15 (7-52) Units/L Alkaline Phosphatase 58 (34-104) Units/L Albumin 2.6 L (3.5-5.7) g/dL Consult Discharge Plan - Plan Referrals: Brenda Bearden MD [Primary Care Provider] -
[2018-01-29 17:08] LABS: eGFR For Non-African Americans > 60 (> 60)
[2018-01-30 04:26] LABS: Basophils % 0.1 %; Eosinophils # 0.3 K/mcL (0.0-0.6); Eosinophils % 2.6 %; Hematocrit 25.9 % (37.5-50.1); Hemoglobin 8.8 g/dL (12.9-16.9); Immature Granulocytes % 1.1 % (0-4); Lymphocytes # 1.7 K/mcL (0.6-4.6); Lymphocytes % 16.9 %; Mean Corpuscular Hemoglobin 31.7 pg (28.0-33.3); Mean Corpuscular Volume 93.2 fL (83.0-100.0); Mean Platelet Volume 9.6 fL (9.4-12.4); Platelet Count 250 K/mcL (140-400); Red Blood Count 2.78 M/mcL (4.19-5.50); Red Cell Distribution Width 13.2 % (11.5-14.5); Segmented Neutrophils % 69.3 %
[2018-01-30 04:45] LABS: Alanine Aminotransferase 44 Units/L (7-52); Albumin 2.6 g/dL (3.5-5.7); Albumin/Globulin Ratio 0.9 (1.1-2.2); Alkaline Phosphatase 69 Units/L (34-104); Aspartate Amino Transferase 52 Units/L (13-39); BUN/Creatinine Ratio 17 (6-26); Bilirubin,Total 0.5 mg/dL (0.3-1.0); Blood Urea Nitrogen 12 mg/dL (8-23); Calcium 8.5 mg/dL (8.6-10.3); Carbon Dioxide 24 mEq/L (23-29); Chloride 98 mEq/L (98-107); Globulin 2.8 g/dL (2.4-3.5); Glucose 105 mg/dL (70-105); Osmolality,Calculated 264 (280-300); Potassium 3.7 mEq/L (3.5-5.1); Sodium 127 mEq/L (136-145); Total Protein 5.4 g/dL (6.4-8.9); eGFR For Non-African Americans > 60 (> 60)
[2018-01-30] MEDS: Latanoprost 2.5 ML BOTTLE BOTH EYES SCH (07:27)
[2018-01-30] MEDS: Metoprolol 100 MG TABLET PO SCH (08:26)
[2018-01-30] MEDS: amLODIPine 5 MG TABLET PO SCH (08:27)
--- NOTE | 2018-01-30 08:41 | Discharge Summary ---
<Damion Roberts S - Last Filed: 01/30/18 11:38> - NOTES TO OUTPATIENT PROVIDER Notes to Outpatient Provider: Follow up with Dr Marti Sunday for catheter removal. Follow up to decide whether to restart Warfarin, will discharge the pt on ASA only Orders not resulted at time of discharge: Pending orders 01/27/18 14:41 Culture,Blood [BC] Stat 01/29/18 16:00 Creatinine,Urine [UCHEM] Routine Osmolality,Urine [UCHEM] Routine Sodium, Urine [UCHEM] Routine 01/31/18 02:00 Vancomycin,Trough Timed Date of Encounter: 01/30/18 Time of Encounter: 08:36 - Discharge Diagnosis (1) Supratherapeutic INR Priority: Primary Status: Resolved (2) Atrial fibrillation with RVR Priority: Secondary Status: Resolved (3) Hypertension Priority: Secondary Status: Chronic Qualifiers: Hypertension type: essential hypertension Qualified Code(s): I10 - Essential (primary) hypertension (4) UTI (urinary tract infection) Priority: Secondary Status: Acute Qualifiers: Urinary tract infection type: catheter-associated UTI Indwelling urinary catheter type: indwelling urethral catheter Encounter type: initial encounter Qualified Code(s): T83.511A - Infection and inflammatory reaction due to indwelling urethral catheter, initial encounter; N39.0 - Urinary tract infection , site not specified (5) Sepsis Priority: Secondary Status: Resolved Qualifiers: Sepsis type: sepsis due to unspecified organism Qualified Code(s): A41.9 - Sepsis, unspecified organism (6) Elevated troponin Priority: Secondary Status: Acute (7) Hypokalemia Priority: Secondary Status: Resolved (8) Hyponatremia Priority: Secondary Status: Chronic Hospital course: Mr. Whitmore is a 77 year old male wih PMH afib, htn, BPH s/p TURP. He presented to the ER with c/o blood in his urine -states that it stared on 01/25/18 and that the day before his blood was completely fine Reports having a fall and he hit his head against the toilet before EMS got him. Workup on head and c spine CT was negative. He has been on Coumadin since june when he began to have afib -INR at presentation was 3.2, he was given Vitamin K and coumadin and ASA were held -PT/INR trended as listed below PT - 36.2 ---> 24.6 ---> 15.6 INR - 3.2 ---> 2.2 ---> 1.4 Pt also had a (+) UA for large amounts of blood and a (+) leukocyte esterase and was treated with rocephin IV in the ER. He has had some subjective fever/ chills assoc with his symptoms. -on admission WBC count was 38.7, HR 100, met sepsis criteria -treated with rocephin IV, currently day 5 of tx Urine culture grew gram (+) cocci -assumed to be MRSA by PBP2A detection -sensitive to Vanc, Linezolid, gentamycin, nitrofurantoin, tetracyclin, bactrim -resistant to cipro, levoflox, and oxacilin CT abdomen and pelvis Prominent thickening of the urinary bladder wall with heterogeneous enhancement raises concern for severe cystitis. -High density material in the urinary bladder lumen may be related to excreted contrast and/or blood products. -This corresponds to the history of hematuria Pt is stable for discharge, he remains afebrile and has no complains this morning -will discharge the pt on Bactrim DS for 5 days -follow up with urology on sunday for removal of catheter -will discharge on ASA 81mg, continue to hold coumadin -CHADVASc of 3 and HASERIKAD of 4 -spoke with Dr. Marti re Coumadin use ---- pt will not be restarted on Coumadin as per urology and primary. Discharge discussed with: patient, nurse Time spent discussing smoking cessation with patient: 3 to 10 minutes - Time Spent with Patient Total time spent providing and/or coordinating discharge services: Less than 30 minutes - Discharge Medications Prescriptions: Aspirin Enteric Coated [Aspirin EC] 81 mg PO DAILY 30 Days #30 tablet. Sulfamethoxazole/Trimeth DS [Bactrim DS] 1 each PO DAILY 5 Days #5 tablet Home Medications: Latanoprost [Xalatan] 1 drop OP HS 07/21/17 [History] Lisinopril [Zestril] 40 mg PO DAILY 07/21/17 [History] amLODIPine [Norvasc] 2.5 mg PO DAILY 10/09/17 [History] Metoprolol Tartrate 50 mg PO BID 12/25/17 [History] Tamsulosin [Flomax] 0.4 mg PO HS #30 capsule 12/27/17 [Rx] HYDROcodone/Acet 5/325 mg [[place] 5-325 mg] 1 tab PO Q6H PRN 3 Days #12 tablet [Rx] Aspirin Enteric Coated [Aspirin EC] 81 mg PO DAILY 30 Days #30 tablet. [Rx] Sulfamethoxazole/Trimeth DS [Bactrim DS] 1 each PO DAILY 5 Days #5 tablet [Rx] Allergies/Adverse Reactions: 3 Allergy/AdvReac Type Severity Reaction Status Date / Time No Known Allergies Allergy Verified 12/25/17 19:49 Date of admission: 01/25/18 15:00 Primary care physician: Brenda Bearden MD Consults: 01/28/18 08:41 Consult to Physical Therapy [CONS] Routine Comment: Evaluate, develop and implement POC Reason for Consult: weakness Does patient have active BEDREST order?: No Is patient medically & hemodynamically stable?: Yes Discharging clinician: Damion Roberts Anticipated date of discharge: 01/30/18 - Constitutional Vitals: Temp Pulse Resp BP Pulse Ox 98.3 F 102 16 137/89 94 01/30/18 07:06 01/30/18 07:06 01/30/18 07:06 01/30/18 07:06 01/30/18 07:06 General appearance: Present: A&O X 3, answers questions appropriately Exam: geneal - aox3, nad cardio - taccardia, s2s2 lungs - ctab, no wheeze abd - NTND, no rebound or guarding skin - no rash or ulcer extremities - no edema - Patient Status Disposition: Home, Self-Care Condition: Fair Functional capacity at discharge: independent ambulation Overall status at discharge: patient is progressing back to baseline - Discharge Instructions Follow Up With: Brenda Bearden MD [Primary Care Provider] - 02/07/18 9:30 am - Diet and Activity Activity: increase activity as tolerated Diet: low fat, low cholesterol <ThallapanJoseph walkerbu - Last Filed: 01/30/18 16:36> Orders not resulted at time of discharge: Pending orders 01/27/18 14:41 Culture,Blood [BC] Stat 01/29/18 16:00 Creatinine,Urine [UCHEM] Routine Osmolality,Urine [UCHEM] Routine Sodium, Urine [UCHEM] Routine Date of Encounter: 01/30/18 - Discharge Diagnosis (1) Atrial fibrillation with RVR Status: Resolved (2) Urinary retention Status: Acute (3) Urinary tract infection Status: Acute Qualifiers: Urinary tract infection type: acute cystitis Hematuria presence: with hematuria Qualified Code(s): N30.01 - Acute cystitis with hematuria (4) Supratherapeutic INR Status: Resolved Hospital course: Mr. Whitmore is a 77 year old male - Time Spent with Patient Total time spent providing and/or coordinating discharge services: Date of admission: 01/25/18 15:00 Primary care physician: Brenda Bearden MD Consults: 01/28/18 08:41 Consult to Physical Therapy [CONS] Routine Comment: Evaluate, develop and implement POC Reason for Consult: weakness Does patient have active BEDREST order?: No Is patient medically & hemodynamically stable?: Yes 01/30/18 09:48 Consult to Reed Cleaner [CONS] Stat Reason for SW Consult: pt lives home alone, may need home health - Constitutional Vitals: Temp Pulse Resp BP Pulse Ox 97.4 F L 87 15 132/86 95 01/30/18 10:26 01/30/18 10:26 01/30/18 10:26 01/30/18 10:26 01/30/18 10:26 - Attending Attestation I examined this patient and my medical decision-making was reviewed with the Resident Physician Dr. Roberts. I agree with the documented findings, disposition and treatment plan as described except to the extent set forth below. Mr. Whitmore is a 77 year old male with PMH of a fib, HTN, and BPH s/p recent TURP who presented to the ER with hematuria. Pt was on coumadin for anti coag, his Coumadin and ASA was held and started on CBI, also placed him on empirical abx in suspect of UTI. His urine cx grew MRSA. He is alert, awake and o x 3.. States he is feeling better today. Chest: Diminished BS b/l, no crackles, no rales Heart: S1S2+ RRR No murmurs : Mild penile edema noticed.. no signs of cellulites noticed a/p 1. Acute hematuria 2. Acute MRSA UTI Switched to PO Bactrim Improved hematuria resumed ASA cont holding Coumadin until he follow up with Urology Dr. Marti as an out pt 3. Hyponatremia seems to be chronic Improved Na today @ 127.. close to baseline Looks euvolemic Medically stable to d/c home today with [place] recommend to f/u with urology on Sunday to d/c [place] and f/u for his Penile swelling / edema
[2018-01-30 10:27] VITALS: BP 132/86
--- NOTE | 2018-01-30 11:42 | Physician Discharge Referral ---
Home Health/Hosp Referral Info Transfer to: Home Health Provider in Charge Post Discharge: PCP - Diagnosis (1) Supratherapeutic INR Priority: Primary Status: Resolved (2) Atrial fibrillation with RVR Priority: Secondary Status: Resolved (3) Hypertension Priority: Secondary Status: Chronic (4) UTI (urinary tract infection) Priority: Secondary Status: Acute (5) Sepsis Priority: Secondary Status: Resolved (6) Elevated troponin Priority: Secondary Status: Acute (7) Hypokalemia Priority: Secondary Status: Resolved (8) Hyponatremia Priority: Secondary Status: Chronic - Respiratory Orders None Smoking Cessation: Smoking cessation has been advised. For more information, call the [place] Tobacco Quit Line at 4-532-GYIU-NOW. - Diet/Nutrition Diet/Nutrition Orders: Cardiac - Activity Activity Orders: Up ad nena - Services Needed Following services are medically necessary services: Physical Therapy, Occupational Therapy - Transfer Medications Prescriptions: RX: Aspirin Enteric Coated [Aspirin EC] 81 mg PO DAILY 30 Days #30 tablet. Sulfamethoxazole/Trimeth DS [Bactrim DS] 1 each PO DAILY 5 Days #5 tablet Home Medications: RX: Latanoprost [Xalatan] 1 drop OP HS 07/21/17 [History] RX: Lisinopril [Zestril] 40 mg PO DAILY 07/21/17 [History] RX: amLODIPine [Norvasc] 2.5 mg PO DAILY 10/09/17 [History] RX: Metoprolol Tartrate 50 mg PO BID 12/25/17 [History] RX: Tamsulosin [Flomax] 0.4 mg PO HS #30 capsule 12/27/17 [Rx] RX: HYDROcodone/Acet 5/325 mg [[place] 5-325 mg] 1 tab PO Q6H PRN 3 Days #12 tablet 01/17/18 [Rx] RX: Aspirin Enteric Coated [Aspirin EC] 81 mg PO DAILY 30 Days #30 tablet. 10/12 [Rx] Sulfamethoxazole/Trimeth DS [Bactrim DS] 1 each PO DAILY 5 Days #5 tablet [Rx] Allergies/Adverse Reactions: 3 Allergy/AdvReac Type Severity Reaction Status Date / Time No Known Allergies Allergy Verified 12/25/17 19:49 Certification: Further, I certify that my clinical findings support that this patient is homebound (i.e. absences from home require considerable and taxing effort and are for medical reasons or yarsani services or infrequently or short duration when for other reasons) because: Homebound Reason: Patient requires assistance of a person or device to safely leave home Attestation: My signature below is to certify that this patient is under my care and that I, or nurse practitioner, or a physician's educational assistant teacher working with me, has a face-to -face encounter with this patient.
--- NOTE | 2018-01-30 14:42 | Physician Discharge Referral ---
Home Health/Hosp Referral Info Transfer to: Home Health Provider in Charge Post Discharge: PCP - Diagnosis (1) Supratherapeutic INR Priority: Secondary Status: Resolved (2) Urinary retention Priority: Secondary Status: Acute (3) Urinary tract infection Priority: Primary Status: Acute (4) Atrial fibrillation with RVR Priority: Secondary Status: Resolved - Respiratory Orders Smoking Cessation: Smoking cessation has been advised. For more information, call the [place] Tobacco Quit Line at 9-491-ZBIY-NOW. - Services Needed Following services are medically necessary services: Nursing, Physical Therapy, Occupational Therapy - Transfer Medications Prescriptions: Aspirin Enteric Coated [Aspirin EC] 81 mg PO DAILY 30 Days #30 tablet. Sulfamethoxazole/Trimeth DS [Bactrim DS] 1 each PO DAILY 5 Days #5 tablet Home Medications: Latanoprost [Xalatan] 1 drop OP HS 07/21/17 [History] Lisinopril [Zestril] 40 mg PO DAILY 07/21/17 [History] amLODIPine [Norvasc] 2.5 mg PO DAILY 10/09/17 [History] Metoprolol Tartrate 50 mg PO BID 12/25/17 [History] Tamsulosin [Flomax] 0.4 mg PO HS #30 capsule 12/27/17 [Rx] HYDROcodone/Acet 5/325 mg [[place] 5-325 mg] 1 tab PO Q6H PRN 3 Days #12 tablet [Rx] Aspirin Enteric Coated [Aspirin EC] 81 mg PO DAILY 30 Days #30 tablet. [Rx] Sulfamethoxazole/Trimeth DS [Bactrim DS] 1 each PO DAILY 5 Days #5 tablet [Rx] Allergies/Adverse Reactions: 3 Allergy/AdvReac Type Severity Reaction Status Date / Time No Known Allergies Allergy Verified 12/25/17 19:49 Certification: Further, I certify that my clinical findings support that this patient is homebound (i.e. absences from home require considerable and taxing effort and are for medical reasons or shinto services or infrequently or short duration when for other reasons) because: Homebound Reason: Patient requires assistance of a person or device to safely leave home Attestation: My signature below is to certify that this patient is under my care and that I, or nurse practitioner, or a physician's statistical assistant working with me, has a face-to -face encounter with this patient.
[2018-01-30] MEDS ORDERED: Aminoglycoside Consult 1 EACH MC ONE (14:43)
--- NOTE | 2018-01-30 14:53 | Event Note ---
Date of Encounter: 01/30/18 Time of Encounter: 14:51 In to see patient due to resident report of penile edema. Examined patient, and penis is edematous but no paraphimosis identified. Continue with penile and scrotal elevation.
== END 2018-01-30 14:44 | disposition home or self-care (01) | DRG 698 ==
LOC: EMEROOARM 09:18 → 3ANU 09:18 → SUATTDRO 15:00 → 3ANU 15:28
PROVIDERS: ADMIT Student in an Organized Health Care Education/Training Program; ATTEND Family Medicine

== ENCOUNTER 2021-11-03 03:26 | Observation (INO) ==
[2021-11-03] MEDS ORDERED: Pantoprazole 40 MG VIAL IVP ONE (04:05)
[2021-11-03 04:29] LABS: Basophils % 0.1 %; Eosinophils # 0.1 K/mcL (0.0-0.6); Eosinophils % 0.3 %; Hematocrit 23.3 % (37.5-50.1); Hemoglobin 7.9 g/dL (12.9-16.9); Immature Granulocytes % 0.7 % (0-4); Lymphocytes # 1.1 K/mcL (0.6-4.6); Lymphocytes % 6.9 %; Mean Corpuscular HGB Conc 33.9 g/dL (31.6-35.5); Mean Corpuscular Hemoglobin 34.2 pg (28.0-33.3); Mean Corpuscular Volume 100.9 fL (83.0-100.0); Mean Platelet Volume 9.8 fL (9.4-12.4); Monocytes # 1.3 K/mcL (0.0-1.3); Monocytes % 8.9 %; Neutrophils # 12.6 K/mcL (1.6-8.9); Platelet Count 276 K/mcL (140-400); Red Blood Count 2.31 M/mcL (4.19-5.50); Red Cell Distribution Width 14.3 % (11.5-14.5); Segmented Neutrophils % 83.1 %; White Blood Count 15.1 K/mcL (4.3-11.1)
[2021-11-03 04:38] LABS: INR 1.2; Prothrombin Time 13.8 Seconds (9.4-12.1)
[2021-11-03] MEDS ORDERED: Iopamidol - 370 500 ML MLS IVP ONE (04:39)
[2021-11-03] MEDS ORDERED: 0.9 % Sodium Chloride 1,000 ML IV ONE (04:39)
[2021-11-03 04:41] LABS: Activated Partial Thrombo Time 26.6 Seconds (26.0-36.0)
[2021-11-03 04:51] LABS: Alanine Aminotransferase 12 Units/L (7-52); Albumin 3.6 g/dL (3.5-5.7); Albumin/Globulin Ratio 1.5 (1.1-2.2); Alkaline Phosphatase 33 Units/L (34-104); Aspartate Amino Transferase 17 Units/L (13-39); BUN/Creatinine Ratio 50 (6-26); Bilirubin,Direct 0.1 mg/dL (0.0-0.2); Bilirubin,Indirect 0.4 mg/dL (0.0-1.0); Bilirubin,Total 0.5 mg/dL (0.3-1.0); Blood Urea Nitrogen 59 mg/dL (8-23); Calcium 8.8 mg/dL (8.6-10.3); Carbon Dioxide 21 mEq/L (23-29); Chloride 108 mEq/L (98-107); Globulin 2.4 g/dL (2.4-3.5); Glucose 130 mg/dL (70-105); Lipase 41 Units/L (11-82); Osmolality,Calculated 306 (280-300); Sodium 139 mEq/L (136-145); Troponin I 0.03 ng/mL (< 0.04); eGFR For African Americans > 60 (> 60); eGFR For Non-African Americans 59 (> 60)
[2021-11-03] MEDS ORDERED: Piperacillin/Tazobactam 3.375 GM in 0.9 % Sodium Chloride Mini Bag 100 ML IVPB ONE (05:21)
[2021-11-03] MEDS ORDERED: Melatonin 3 MG TABLET PO PRN (05:25)
[2021-11-03] MEDS ORDERED: Acetaminophen 325 MG TABLET PO PRN (05:25)
[2021-11-03] MEDS ORDERED: Ondansetron 4 MG/2 ML VIAL IVP PRN (05:25)
[2021-11-03] MEDS ORDERED: Naloxone 0.4 MG/ML INJ IVP PRN (05:25)
[2021-11-03] MEDS: 0.9 % Sodium Chloride 1,000 ML IVC SCH ×2 (09:20→16:36)
[2021-11-03] MEDS: Pantoprazole 40 MG in 0.9 % Sodium Chloride Mini Bag 100 ML IVC SCH ×4 (09:30→20:52)
[2021-11-03 09:55] LABS: Basophils % 0.2 %; Eosinophils % 0.4 %; Hematocrit 22.4 % (37.5-50.1); Hemoglobin 7.5 g/dL (12.9-16.9); Immature Granulocytes % 0.6 % (0-4); Lymphocytes # 1.7 K/mcL (0.6-4.6); Lymphocytes % 15.1 %; Mean Corpuscular HGB Conc 33.5 g/dL (31.6-35.5); Mean Corpuscular Hemoglobin 34.1 pg (28.0-33.3); Mean Corpuscular Volume 101.8 fL (83.0-100.0); Mean Platelet Volume 9.6 fL (9.4-12.4); Monocytes # 1.2 K/mcL (0.0-1.3); Monocytes % 10.6 %; Platelet Count 241 K/mcL (140-400); Red Cell Distribution Width 14.4 % (11.5-14.5); Segmented Neutrophils % 73.1 %; White Blood Count 10.9 K/mcL (4.3-11.1)
[2021-11-03 12:57] LABS: Bilirubin,Urine Negative (Negative); Blood,Urine Negative (Negative); Clarity,Urine Clear (Clear); Color,Urine Colorless (Yellow); Glucose,Urine (UA) Normal (Normal); Ketones,Urine Negative (Negative); Leukocyte Esterase,Urine Negative (Negative); Nitrite,Urine Negative (Negative); Protein,Urine Trace mg/dL (Neg-Trace); Specific Gravity,Urine > 1.030 (1.010-1.025); Urobilinogen,Urine Normal (Normal)
[2021-11-03] MEDS ORDERED: SODIUM CHLORIDE/NAHCO3/KCL/PEG 4,000 ML SOLN.RECON PO ONE (17:00)
[2021-11-03 18:50] LABS: Basophils % 0.2 %; Eosinophils % 0.4 %; Hemoglobin 7.1 g/dL (12.9-16.9); Immature Granulocytes % 0.7 % (0-4); Lymphocytes # 1.4 K/mcL (0.6-4.6); Mean Corpuscular HGB Conc 32.3 g/dL (31.6-35.5); Mean Corpuscular Hemoglobin 33.6 pg (28.0-33.3); Mean Corpuscular Volume 104.3 fL (83.0-100.0); Mean Platelet Volume 10.5 fL (9.4-12.4); Monocytes # 1.1 K/mcL (0.0-1.3); Monocytes % 12.3 %; Neutrophils # 6.4 K/mcL (1.6-8.9); Nucleated Red Blood Cells 0.2 /100 WBC (0); Platelet Count 183 K/mcL (140-400); Red Blood Count 2.11 M/mcL (4.19-5.50); Red Cell Distribution Width 14.8 % (11.5-14.5); Segmented Neutrophils % 71.4 %
[2021-11-03] MEDS ORDERED: Latanoprost 2.5 ML BOTTLE BOTH EYES SCH (21:00)
[2021-11-04] MEDS: Pantoprazole 40 MG in 0.9 % Sodium Chloride Mini Bag 100 ML IVC SCH ×2 (01:23→06:16)
[2021-11-04 06:28] LABS: INR 1.2; Prothrombin Time 13.6 Seconds (9.4-12.1)
[2021-11-04 06:39] LABS: BUN/Creatinine Ratio 31 (6-26); Blood Urea Nitrogen 28 mg/dL (8-23); Calcium 8.5 mg/dL (8.6-10.3); Carbon Dioxide 20 mEq/L (23-29); Chloride 113 mEq/L (98-107); Glucose 119 mg/dL (70-105); Magnesium 1.9 mg/dL (1.6-2.6); Osmolality,Calculated 299 (280-300); Potassium 3.5 mEq/L (3.5-5.1); Sodium 141 mEq/L (136-145); eGFR For African Americans > 60 (> 60); eGFR For Non-African Americans > 60 (> 60)
[2021-11-04] MEDS ORDERED: Lidocaine -MPF 2% 2 ML VIAL ONE (08:30)
[2021-11-04] MEDS ORDERED: *HR* Metoprolol 5 MG/5 ML VIAL IVP ONE (09:08)
[2021-11-04 09:13] LABS: % Iron Saturation 8 % (20-55); Iron 25 mcg/dL (65-175); Transferrin 227 mg/dL (203-362)
[2021-11-04 09:30] LABS: Ferritin 49 ng/mL (20-250)
[2021-11-04 11:28] LABS: Basophils % 0.3 %; Eosinophils # 0.2 K/mcL (0.0-0.6); Eosinophils % 1.7 %; Hemoglobin 7.3 g/dL (12.9-16.9); Immature Granulocytes % 0.5 % (0-4); Lymphocytes % 19.8 %; Mean Corpuscular HGB Conc 31.7 g/dL (31.6-35.5); Mean Corpuscular Hemoglobin 33.6 pg (28.0-33.3); Monocytes # 1.3 K/mcL (0.0-1.3); Monocytes % 13.1 %; Neutrophils # 6.4 K/mcL (1.6-8.9); Platelet Count 260 K/mcL (140-400); Red Blood Count 2.17 M/mcL (4.19-5.50); Segmented Neutrophils % 64.6 %; White Blood Count 9.9 K/mcL (4.3-11.1)
[2021-11-04 12:15] VITALS: BP 156/78; PULSE 91; TEMP 97.8; O2SAT 95
== END 2021-11-04 16:21 | disposition home or self-care (01) ==
LOC: EMEROOARM 03:26 → 3ANU 03:26 → SUATTDRO 05:31 → 3ANU 06:24
PROVIDERS: ADMIT Internal Medicine; ATTEND Internal Medicine
PROC: ENDOEBX (2021-11-04 09:30)